=== PATIENT | male | born 1965 | race Caucasian/White ===

== ENCOUNTER 2024-02-06 09:30 | Inpatient (IN) | payer BC, SELFPAY ==
[2024-02-06 09:40] VITALS: BP 123/78
--- NOTE | 2024-02-06 09:51 | PTCARENOTE ---
Received patient as a transfer from [facility] to room 2244. Patient assisted from the stretcher to the bed, + HAMM, lungs are clear but coarse and patient on 2L NC with pulse ox of 95%. Placed on telemetry and remains in controlled AF. IV heparin
was infusing and IV cardizem which is empty, await further orders. Oriented to the room and plan of care, CT surgery PA in with patient now.
[2024-02-06 10:13] VITALS: BMI 32.4
--- NOTE | 2024-02-06 10:14 | HPS.HSE ---
Family Physician
-
Family Physician: NO INTERVIEW UNKNOWN
Chief Complaint
-
shortness of breathe
History of Present Illness
58-year-old male with past medical history of hyperlipidemia, hypertension, GERD, obesity, and former smoker presented to [facility] with acute onset of shortness of breath. He states that he has been progressively short of breath for 2
weeks, however, he noticed that the shortness of breath was worse. On Sunday he noticed that he along with the labored breathing he also became dizzy so he told his to call 911. EMS brought patient to [facility]. While
at [facility] he was found to be in new onset atrial fibrillation with rapid ventricular rate. At that time he was started on a Cardizem and heparin infusion.
While at [facility] he received an echocardiogram which showed an ejection fraction of 20-25% with severe global hypokinesis. On echo it was also found that the patient had moderate to severe mitral valve regurgitation. Patient was
then taken to the cardiac [employer] where a right and left heart cath was performed. Patient showed a mixed venous of 59.4 and a cardiac index of 2.33. LHC revealed moderate distal LM diseal and MVD. Patient was transferred to for CT surgery work
up.
Medical History
Past Medical History
Past Medical History: Reports GERD, HTN, Hypercholesterolemia, NIDDM and Valvular Disease
Past Surgical History: Reports Orthopedic
Social History
Tobacco: Former Smoker
Alcohol: Occasional
Drug: None
Personal:
Living: With Family
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
Family History
Family History: CAD
Allergies / Home Medications
Allergies reflects when Allergies were last updated in [employer].
Home Medications with original date entered in [employer]
Allergy/Medication List:
NKDA
If medication reconciliation has not been performed, why?: Medication List N/A
Review of Systems
-
History Source: Patient
A 12 point ROS was completed and negative except as noted: Yes
Constitutional: Reports Weight Gain
EENT: Reports No Symptoms
Respiratory: Reports Trouble Breathing
Cardiac: Reports Palpitations
Abdomen/GI: Reports Constipated
: Reports No Symptoms
Musculoskeletal: Reports Edema
Skin: Reports No Symptoms
Neurological: Reports No Symptoms
Endocrine: Reports No Symptoms
Hematologic/Lymphatic: Reports No Symptoms
Psych: Reports No Symptoms
Physical Exam
Vital Signs
Vital Signs
Temp Resp Pulse Ox
97.9 F 18 96
02/06/24 10:12 02/06/24 10:12 02/06/24 10:12
Physical Exam
General: Well Developed, Well Nourished, Respiratory Distress and Morbidly Obese
HEENT: NormoCephalic and PERRLA
Respiratory: Rhonchi (Right > left) and Crackles
Cardiac: S1/S2 and Irregular Rhythm
Breast: Deferred by me
GI: Soft, Non Tender and Normal Bowel Sounds
Genito-urinary: Deferred by me
Musculoskeletal: No Cyanosis, Edema, Left Lower Extremity and Edema, Right Lower Extremity
Skin: Warm and Dry
Neuro: AO x 3
Hematologic/Lymphatic: No Lymphadenopathy
Psych: Calm
Data Reviewed
-
Diagnostic Radiology: Image Personally Visualized and interpreted
Impression/Plan
-
IMPRESSION:
58-year-old male with past medical history listed above was found to be in new onset rapid A-fib at [facility]. Patient was subsequently found to have multivessel disease and severe MR and patient was transferred to [facility]
for surgical evaluation.
PLAN:
#CAD
#Moderate to severe MR
#Fluid overload
-Patient's case will be discussed with attending physician. Further details regarding surgical timing intervention will be determined after attending physicians full evaluation
-Routine preoperative cardiothoracic surgery orders will be initiated.
-STS risk stratification score will be calculated after preoperative testing is complete
-Will consult cardiology
-Will send labs now and follow-up EKG
-Will start aspirin 81 mg daily
-Will diurese as blood pressure allows
-Chest x-ray pending
-Will upload echocardiogram and left heart cath to CV synapse
- Will begin gentle diureses and repeat TTE on sunday
#Atrial fibrillation with rapid ventricular rate
-Discontinue Cardizem drip and start metoprolol p.o.
> Will up titrate as needed
-Resume heparin drip
-Was started on Eliquis p.o. at [facility]; will discontinue given patient is here for surgical workup
#GERD
-Continue Protonix
#Obesity
-Eventual consult to nutrition
#Constipation
-Resume bowel regimen
#Hyperlipidemia
-Resume statin
#Prediabetes
-Will start sliding scale insulin while inpatient.
-HgbA1c pending
[2024-02-06 10:19] LABS: % Basophils 0.7 % (0-2); % Eosinophils 0.9 % (0-6); % Immature Granulocytes 0.4 % (0-0.5); % Lymphocytes 13.5 % (20.5-51.1); % Neutrophils 70.5 % (42.2-75.2); Absolute Basophils 0.1 10^3/uL (0-0.2); Absolute Eosinophils 0.1 10^3/uL (0-0.7); Absolute Immature Granulocytes 0.1 10^3/uL (0-0.05); Absolute Lymphocytes 1.7 10^3/uL (1.2-3.4); Absolute Monocytes 1.7 10^3/uL (0.1-0.6); Absolute Neutrophils 8.6 10^3/uL (1.4-6.5); Hematocrit 43.3 % (39.0-52.0); Hemoglobin 14.9 g/dL (13.0-18.0); Mean Corp Hgb Conc. 34.4 g/dL (33.0-37.0); Mean Corpuscular Hgb 28.8 pg (27.0-31.0); Mean Corpuscular Volume 83.6 fL (80.0-94.0); Mean Platelet Volume 9.9 fL (7.4-10.4); Nucleated Red Blood Cells % 0 % (-); Platelet Count 311 10^3/uL (130-400); Red Blood Cell Count 5.18 10^6/uL (4.70-6.10); Red Cell Dist. Width 14.9 % (11.5-14.5); White Blood Cell Count 12.2 10^3/uL (4.8-10.8)
[2024-02-06] MEDS: HEPARIN 25000 UNITS/250 ML IV (11:06)
[2024-02-06] MEDS: LOPRESSOR 12.5 MG PO (11:12)
[2024-02-06 11:31] LABS: Urine Albumin Negative (Neg - Trace); Urine Bilirubin 1+ (Negative); Urine Character Clear (Clear); Urine Color Yellow; Urine Glucose Negative (Negative); Urine Ketone Trace (Negative); Urine Leukocyte Trace (Negative); Urine Nitrite Negative (Negative); Urine Occult Blood Negative (Negative); Urine Urobilinogen 3+ (Neg - 1+)
[2024-02-06 11:37] LABS: APTT 30.3 Sec (23.4-35.0); INR 1.22; PT 15.2 Sec (11.4-14.6)
[2024-02-06 11:43] LABS: ALT (SGPT) 23 U/L (0-50); AST (SGOT) 23 U/L (17-59); Alkaline Phosphatase 129 U/L (38-126); Blood Urea Nitrogen 15 mg/dl (9-20); Calcium 9.8 mg/dl (8.4-10.2); Carbon Dioxide 21 mmol/L (22-30); Chloride 104 mmol/L (98-107); Estimated Creatinine Clearance > 125 ml/min; Glucose 117 mg/dl (70-99); HDL Cholesterol 39 mg/dl; LDL Cholesterol, Calculated 82 mg/dl; Potassium 4.1 mmol/L (3.5-5.1); Sodium 137 mmol/L (135-145); Total Bilirubin 1.8 mg/dl (0.2-1.3); Total Cholesterol 136 mg/dl (50-199); Total Protein 6.8 g/dl (6.3-8.2); Triglyceride 75 mg/dl (10-149); Very Low Density Lipoprotein 15 mg/dl (0-30); eGFR > 60.00
[2024-02-06 12:18] LABS: Urine Red Blood Cell 0-2 /HPF (0-2); Urine Squamous Cell 0-2 /LPF (Few)
[2024-02-06] MEDS: LASIX 50 IV (12:27)
--- NOTE | 2024-02-06 13:02 | PTCARENOTE ---
EKG, labs obtained. Patient started on IV heparin at 1000 units/hr, IV lasix started at 10mg/hr as ordered.
--- NOTE | 2024-02-06 13:08 | CON.CAR ---
Addendum entered and electronically signed by Sree Gonsales MD 02/06/24 16:30:
Patient seen and examined in collaboration with RECOVERY COACH; agree with below.
-58-year-old f male with hypertension, hyperlipidemia, GERD, obesity, prediabetes, and former heavy cigarette use (2 PPD for several decades) transferred from [facility] for CABG evaluation.
-The patient was found to have multivessel CAD at [facility] and an LVEF of 20-25% with moderate to severe mitral regurgitation.
-The patient is currently on a Lasix drip.
-Will transition from metoprolol tartrate to metoprolol succinate for GDMT.
-Further GDMT will transpire throughout hospitalization after CABG; holding certain medications for now in anticipation of CABG.
-Case discussed with CT surgery; will reassess degree of mitral regurgitation on Sunday after aggressive diuresis via a repeat transthoracic echocardiogram.
-gambling monitor; will follow.
Original Note:
Consultation
Consultation Request
Date/Time Consultation Requested: 02/06/2024 10:45
Date/Time Consultation Performed: 02/06/2024 13:00
Requesting Provider: NATHANAEL Wise
Performing Provider: NATHANAEL Buck for Dr. Gonsales
Reason for Consultation: Coronary artery disease
Medical History
-
Chief Complaint: Shortness of breath
History of Present Illness:
This patient is a 58-year-old male with a past medical history of hypertension, dyslipidemia, GERD, obesity, and former smoker who originally presented to [facility] with shortness of breath. His feeling of unwellness started 5 days
prior to ER visit. He endorsed palpitations and the sensation of elevated heart rate. He felt to have near syncope and presented to the emergency department. He was found to have atrial fibrillation with rapid ventricular response. He was started
on a diltiazem drip and heparin. Transthoracic echocardiogram revealed an LVEF of 20-25%. He was also found to have moderate to severe mitral regurgitation. A LYSSA guided DCCV was planned but anesthesia felt uncomfortable performing the test
without ischemic evaluation. He then had a Myoview stress test which was abnormal. The following day he had a left and right heart catheterization which demonstrated multivessel coronary artery disease. He was transferred to this facility for
CABG evaluation with possible MVR.
Past Medical History
Past Medical History: GERD, HTN and Hypercholesterolemia
Social History
Tobacco: Former Smoker
Alcohol: Occasional
Drug: None
Personal:
Living: With Family
Employment: Employed
Allergies / Home Medications
Allergy/AdvReac Type Severity Reaction Status Date / Time
No Known Allergies Allergy Unverified 02/06/24 10:36
�Medication �Instructions �Recorded �Confirmed �Type
atorvastatin 20 mg tablet (Lipitor) 20 mg PO DAILY 02/06/24 02/06/24 History
omeprazole magnesium 20 mg 20 mg PO DAILY 02/06/24 02/06/24 History
tablet,delayed release (Prilosec
OTC)
Review of Systems
-
History Source: Patient
All other systems: Negative unless noted
Constitutional: Fatigue
Respiratory: Trouble Breathing
Cardiac: No Symptoms
Musculoskeletal: Edema
Physical Exam
Vital Signs
Temp Pulse Resp BP Pulse Ox
97.9 F 81 18 123/78 96
02/06/24 10:12 02/06/24 11:15 02/06/24 10:12 02/06/24 09:40 02/06/24 10:12
Lab Results
02/06/24 10:36
Physical Exam
General: Well Developed, Well Nourished and No Apparent Distress
HEENT: Normocephalic, Anicteric and Moist Mucous Membranes
Respiratory: Crackles
Cardiac: S1/S2, Regular Rhythm and Murmur (II/)
Breast: Deferred by me
GI: Soft, Non Tender, Non Distended and Normal Bowel Sounds
Rectal: Deferred by Provider
Genito-urinary: No Costovertebral Tender
Musculoskeletal: No Clubbing and No Cyanosis
Skin: Warm and Dry
Neuro: AO x 3
Hematologic/Lymphatic: No Lymphadenopathy
Psych: Calm
Impression / Plan
-
Background: 58M presented to [facility] with SOB. Found to be in AF with RVR. LVEF 20-25%. LHC with MVCAD. TTE with moderate�severe MR.
NSTEMI
Coronary artery disease
-LVEF 20-25%, the following day he had an abnormal stress test, the day after he then had LHC with findings as below
-Pre-operative studies are underway, for review by surgeon
-Troponin 1 peaked at 27 at [facility]
-Continue ASA 81 mg daily
HFrEF, ICM (EF 20-25%) - acute on chronic
-Diuresis with furosemide gtt at 10mg/hour
-proBNP 596 02/02/2024
-GDMT as tolerated
-Beta-ish: Metoprolol tartrate, transition to metoprolol succinate
-ACEi/ARB: Hold in the setting of CABG evaluation
-MRA: Hold in the setting of CABG evaluation
-SGLT2: Case management to wilkes
-ICD: Reevaluate LVEF 3 months after maximally tolerated GDMT
-Trend daily weight, I/O, and BMP with diuresis
Atrial fibrillation with rapid ventricular response
-Initially on diltiazem drip, less than ideal given decline in LVEF, transition to beta-ish
-Oral Anticoagulation: Heparin drip, eventually apixaban 5 mg twice daily post-operatively
-[id number]: Score at least 3 (Heart failure, HTN, Vascular disease)
Moderate to severe mitral regurgitation
-Continue diuresis, can reevaluate after he is closer to euvolemia (LYSSA versus TTE)
Dyslipidemia
-LDL 82, increase atorvastatin to 40 mg daily
Prediabetes, HgbA1c 6.0%, consider SGLT2
Obesity, BMI 32, he would benefit from weight loss
Former smoker, 2 PPD x 30 years, quit in 2021, continued cessation recommended
Data:
Transthoracic echocardiogram 02/03/2024:
LVEF 20-25%. Severe global hypokinesis. Moderate to severe mitral valve regurgitation. Mitral valve leaflets are tethered. Mildly elevated PASP, 31 mmHg.
Cardiac catheterization, 02/05/2024:
Severe multivessel coronary artery disease with left main involvement. Moderate to severely depressed LVEF with at least moderate mitral regurgitation. Mild to moderately elevated left and right pressures with no evidence of aortic stenosis. CI
2.33.
Data Reviewed
-
EKG: Report Reviewed by me (Atrial fibrillation, inferior infarct, anterior infarct, rate 94)
Labs: Labs Reviewed by me
Old Records: Reviewed
--- NOTE | 2024-02-06 13:29 | CM ---
Chart reviewed. Patient is independent of ADLS, lives with his in a 3 STH, 1 RORO, 0 DME. Patient is going for CABG/MVR on 02/10. Plan is for the patient to return home with CT Transitional RN. CM to follow
--- NOTE | 2024-02-06 14:27 | CM ---
Pricing on medications through the patients [facility], ID# [id number]
Farxiga 10 mg $10 for a 30 day, $20 for a 90 day
Jardiance 10mg $10 for 30 day, $20 for 90 day
Entresto 24-26mg $10 for 30 day, $20 for 90 day
Eliquis 5 mg $10 for 30 day, $20 for 90 day.
[2024-02-06 15:46] VITALS: BP 137/58
[2024-02-06 16:37] LABS: NT-proBNP 1390 pg/ml
[2024-02-06] MEDS: LIPITOR 40 MG PO (18:09)
[2024-02-06 18:28] LABS: APTT 32.4 Sec (23.4-35.0)
[2024-02-06 18:29] LABS: Blood Urea Nitrogen 20 mg/dl (9-20); Carbon Dioxide 29 mmol/L (22-30); Chloride 98 mmol/L (98-107); Estimated Creatinine Clearance 109 ml/min; Glucose 93 mg/dl (70-99); Potassium 4.5 mmol/L (3.5-5.1); Sodium 138 mmol/L (135-145); eGFR > 60.00
[2024-02-06 19:04] VITALS: BP 134/121
[2024-02-06 19:06] VITALS: BP 134/102
[2024-02-06 19:11] VITALS: BP 124/104
[2024-02-06] MEDS: TOPROL XL 25 MG PO (19:45)
[2024-02-06] MEDS: COLACE 100 MG PO (19:45)
[2024-02-06 22:56] VITALS: BP 124/95
[2024-02-07] VITALS (7 sets, daily range): BP systolic 102–129; BP diastolic 40–91; BMI 31.1
--- NOTE | 2024-02-07 00:09 | PTCARENOTE ---
Addendum entered by Abigail Cali RN 02/07/24 02:46:
Correction - pt. is in Afib rate 80's-low 100's on the monitor.
Original Note:
No complaints of CP/discomfort so far this shift, VSS, NSR on the monitor. Lasix drip infusing until 2100 as ordered then dc'd, pt. voiding large amounts of clear yellow urine without difficulty. Pt. HAMM with ambulation and at rest at times, 2L O2
on with pulse ox mid to high 90's. Lungs CTA. Right radial and brachial cath dressing CDI, no hematoma, circulation intact. Pt. currently sleeping.
[2024-02-07 01:07] LABS: Hematocrit 45.1 % (39.0-52.0); Hemoglobin 15.7 g/dL (13.0-18.0); Mean Corp Hgb Conc. 34.8 g/dL (33.0-37.0); Mean Corpuscular Hgb 28.5 pg (27.0-31.0); Mean Platelet Volume 9.5 fL (7.4-10.4); Platelet Count 332 10^3/uL (130-400); Red Cell Dist. Width 14.8 % (11.5-14.5); White Blood Cell Count 12.9 10^3/uL (4.8-10.8)
[2024-02-07 01:20] LABS: APTT 42.8 Sec (23.4-35.0)
[2024-02-07 02:06] LABS: Blood Urea Nitrogen 20 mg/dl (9-20); Calcium 9.9 mg/dl (8.4-10.2); Carbon Dioxide 21 mmol/L (22-30); Chloride 102 mmol/L (98-107); Estimated Creatinine Clearance > 125 ml/min; Glucose 104 mg/dl (70-99); Sodium 137 mmol/L (135-145); eGFR > 60.00
[2024-02-07 02:22] LABS: Potassium 3.9 mmol/L (3.5-5.1)
[2024-02-07] MEDS: KCL 40 MEQ PO (06:10)
[2024-02-07] MEDS: TOPROL XL 25 MG PO (06:10)
[2024-02-07] MEDS: LASIX 50 IV (06:11)
[2024-02-07] MEDS: HEPARIN 25000 UNITS/250 ML IV ×2 (06:12→22:00)
[2024-02-07] MEDS: PROTONIX 40 MG PO (08:05)
[2024-02-07] MEDS: LOW STRENGTH ASPIRIN 81 MG PO (08:05)
[2024-02-07] MEDS: COLACE 100 MG PO ×2 (08:05→19:19)
--- NOTE | 2024-02-07 08:21 | W.PN.CD ---
Today's Communication / Plan
-
continue ASA, heparin drip
titrate metoprolol
Impression / Plan
-
Background: 58M presented to [facility] with SOB. Found to be in AF with RVR. LVEF 20-25%. [facility] with MVCAD. TTE with moderate�severe MR.
NSTEMI
Coronary artery disease: with plans for inpatient CABG
-LVEF 20-25%, the following day he had an abnormal stress test, the day after he then had C with findings as below
-Continue ASA 81 mg daily, heparin drip (with monitoring of tele and Hgb)
Moderate to severe mitral regurgitation
-Continue diuresis, then repeat TTE tomorrow
-? MV repair
HFrEF, ICM (EF 20-25%) - acute on chronic
-Diuresis with furosemide gtt at 10mg/hour
-GDMT as tolerated
-Beta-ish: metoprolol succinate
-ACEi/ARB: Hold in the setting of CABG evaluation
-MRA: Hold in the setting of CABG evaluation
-SGLT2: Case management to wilkes
-ICD: Reevaluate LVEF 3 months after maximally tolerated GDMT
-Trend daily weight, I/O, tele, and BMP with diuresis
Atrial fibrillation with rapid ventricular response
-Initially on diltiazem drip, less than ideal given decline in LVEF, transitioned to beta-ish, and titrate
-rates mildly elevated
-Oral Anticoagulation: Heparin drip now; eventually apixaban 5 mg twice daily post-operatively
-[id number]: Score at least 3 (Heart failure, HTN, Vascular disease)
Dyslipidemia
-LDL 82, increase atorvastatin to 40 mg daily
Prediabetes, HgbA1c 6.0%, consider SGLT2
Obesity, BMI 32, he would benefit from weight loss
Former smoker, 2 PPD x 30 years, quit in 2021, continued cessation recommended
Data:
Transthoracic echocardiogram 02/03/2024:
LVEF 20-25%. Severe global hypokinesis. Moderate to severe mitral valve regurgitation. Mitral valve leaflets are tethered. Mildly elevated PASP, 31 mmHg.
Cardiac catheterization, 02/05/2024:
Severe multivessel coronary artery disease with left main involvement. Moderate to severely depressed LVEF with at least moderate mitral regurgitation. Mild to moderately elevated left and right pressures with no evidence of aortic stenosis. CI
2.33.
Physical Exam
Vital Signs/Labs
Vital Signs
Temp Pulse Resp BP Pulse Ox
98.6 F 120 20 103/40 95
02/07/24 01:05 02/07/24 07:12 02/07/24 01:05 02/07/24 07:12 02/07/24 01:05
02/06/24 02/07/24 02/08/24
06:59 06:59 06:59
Actual Weight 101.2 kg
02/07/24 01:01
02/07/24 01:01
PT 15.2 Sec (11.4-14.6) H 02/06/24 10:10
INR 1.22 02/06/24 10:10
APTT 42.8 Sec (23.4-35.0) H 02/07/24 01:01
Magnesium 2.0 mg/dl (1.6-2.3) 02/07/24 01:01
Triglycerides 75 mg/dl (10-149) 02/06/24 10:10
LDL Cholesterol, Calc 82 mg/dl 02/06/24 10:10
VLDL Cholesterol, Calc 15 mg/dl (0-30) 02/06/24 10:10
HDL Cholesterol 39 mg/dl 02/06/24 10:10
02/06/24
10:10
Ude-X-Rokaclikbss Pept 1390
Physical Exam
Constitutional: No acute distress
EENT: Moist mucous membranes
Cardiovascular: Rhythm/rate is irregular, Pedal edema present, JVD present and Systolic murmur present
Respiratory: Respiratory effort normal and Lungs clear to auscul.
GI: Soft, Distention absent and Flat
Neuro/Psych: AO x 3
Data Reviewed
-
Date of Service: February 07, 2024
EKG: Other (Tele: A fib 100-110)
Labs: Labs Reviewed by me
[2024-02-07 09:40] LABS: APTT 50.5 Sec (23.4-35.0)
--- NOTE | 2024-02-07 11:39 | CM ---
Chart reviewed. 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 Patient is going for a CABG on 02/10. Preoperative teaching done with instructions and restrictions.
Gave patient the Cardiac Surgery Book. Also reviewed showering instructions. Patient is agreeable to a home visit by CT Transitional RN. Plan is for the patient to return home with CT Transitional RN. CM to follow
[2024-02-07 15:52] LABS: Hepatitis C Antibody Negative (Negative)
[2024-02-07 16:32] LABS: APTT 59.2 Sec (23.4-35.0)
[2024-02-07] MEDS: LIPITOR 40 MG PO (17:49)
--- NOTE | 2024-02-07 18:53 | PTCARENOTE ---
Pt OOB to chair for most of the day, he denies any discomfort. Telemetry shows uncontrolled atrial fib with resting rate @110-120 up to 150 with activity. Pt asymptomatic, SBP @106. Dr. Pyle notified of elevated heart rates, will continue to monitor.
[2024-02-07] MEDS: TOPROL XL 50 MG PO (19:21)
--- NOTE | 2024-02-07 21:19 | W.PN.CT ---
Addendum entered and electronically signed by Mando Luz PA-C 02/07/24 21:19:
correction:
- tentative schedule for MVR, CABG, MAZE, STEVIE clip with Dr Matias on Saturday 02/10
Original Note:
Today's Communication / Plan
-
CUS: <50% B/L ICA stenosis
CTA C/A/P: mild-mod emphysema
- pulmonary function testing pending
Assessment / Plan
-
58-year-old male with past medical history listed above was found to be in new onset rapid A-fib at [facility]. Patient was subsequently found to have multivessel disease and severe MR and patient was transferred to [facility]
for surgical evaluation.
PLAN:
#CAD
#Moderate to severe MR
#Fluid overload
# HFrEF (20-25%)
- tentative schedule for MVR, CABG, MAZE, STEVIE clip with Dr Hyman on 02/10
- STS risk stratification score will be calculated after preoperative testing is complete
- continue ASA, Lipitor, Toprol
- echocardiogram and left heart cath to CV synapse
- weight down 1056.3>101.2kg after aggressive diuresis with Lasix infusion 02/05 & 02/06
- repeat TTE on 02/07
#Atrial fibrillation with rapid ventricular rate
- Toprol XL 50mg BID
- anticoagulation with IV heparin @ 1600u/h
- Was started on Eliquis p.o. at [facility]>discontinued per pre-op protocol
#GERD
- Continue Protonix
#Obesity (BMI 31.1)
- Eventual consult to nutrition
#Constipation
- Resume bowel regimen
#Hyperlipidemia
- continue Lipitor
#Prediabetes (A1C 6.0)
-Will start sliding scale insulin while inpatient
Subjective
-
Date of Service: February 07, 2024
Objective Data
-
Lab Results
02/07/24 01:01
02/07/24 01:01
PT 15.2 Sec (11.4-14.6) H 02/06/24 10:10
INR 1.22 02/06/24 10:10
APTT 50.5 Sec (23.4-35.0) H 02/07/24 09:23
Vital Signs
Vital Signs
Temp Pulse Resp BP Pulse Ox
97.8 F 120 20 102/82 96
02/07/24 15:31 02/07/24 12:16 02/07/24 15:31 02/07/24 12:16 02/07/24 15:31
CT Intake/Output/Weight
02/06/24 02/07/24 02/07/24
18:59 06:59 18:59
Intake Total 76 / 316 240 / 316 300 / 300
Output Total 2024 / 4575 2550 / 4575 2099 / 2099
Balance -1949 / -4259 -2310 / -4259 -1800 / -1800
SaO2: 96
Physical Exam
-
General: AOx3
Cardiovascular: Irregular rate & rhythm
Respiratory: Clear
Data Reviewed
-
Lab Results: Results Reviewed
Medications: Active Meds Reviewed
Chest X-Ray: Report Reviewed and Image Reviewed
ECG: Report Reviewed and Image Reviewed
[2024-02-07 23:58] LABS: APTT 70.5 Sec (23.4-35.0)
[2024-02-08] VITALS (7 sets, daily range): BP systolic 107–136; BP diastolic 69–93; BMI 30.8
--- NOTE | 2024-02-08 01:21 | PTCARENOTE ---
Pt. tired tonight, has been sleeping since ~2200; Afib on the monitor, rate 80's-low 100's with sleep. Voiding leora urine without difficulty when awake. Heparin gtt infusing per order.
--- NOTE | 2024-02-08 03:21 | W.PN.CT ---
Today's Communication / Plan
-
-diuresed over 7L in the past 48 hrs (on Lasix drip 02/05 and 02/06)
-ordered Lasix drip on 02/07
-follow lytes, Cr
-renewed iv Heparin for a-fib
-Echo and PFT today
-tentative schedule for MVR, CABG, MAZE, STEVIE clip with Dr Matias on Saturday 02/10 (consent on chart)
Assessment / Plan
-
- New onset a-fib with RVR
- Mod-severe MR
- New onset systolic CHF
- CAD
- ICM, EF 20-25%
- HLD
- Class 1 obesity (BMI 31)
- GERD
- Pre-diabetes (HgA1c 6.0)
- Tobacco use
CUS: <50% B/L ICA stenosis
CTA C/A/P: mild-mod emphysema
Panelipse without significant findings
Discussed patient care with: Nursing and Care Team
Subjective
-
Date of Service: February 08, 2024
Objective Data
-
PT 15.2 Sec (11.4-14.6) H 02/06/24 10:10
INR 1.22 02/06/24 10:10
APTT 70.5 Sec (23.4-35.0) H 02/07/24 23:19
Vital Signs
Vital Signs
Temp Pulse Resp BP Pulse Ox
98.6 F 113 20 106/90 98
02/07/24 23:35 02/07/24 23:34 02/07/24 23:35 02/07/24 23:34 02/07/24 23:35
CT Intake/Output/Weight
02/07/24 02/07/24 02/08/24
06:59 18:59 06:59
Intake Total 240 / 316 300 / 300
Output Total 2550 / 4575 2100 / 2650 550 / 2650
Balance -2310 / -4259 -1800 / -2350 -550 / -2350
SaO2: 98
Physical Exam
-
General: Awake and AOx3
Cardiovascular: Regular rate & rhythm, Murmur and No Rub
Respiratory: Clear
Extremities: Other (trace edema b/l)
Data Reviewed
-
Lab Results: Results Reviewed
Medications: Active Meds Reviewed
Chest X-Ray: Report Reviewed and Image Reviewed
ECG: Report Reviewed and Image Reviewed
[2024-02-08 05:45] LABS: Hematocrit 48.7 % (39.0-52.0); Hemoglobin 16.7 g/dL (13.0-18.0); Mean Corp Hgb Conc. 34.3 g/dL (33.0-37.0); Mean Corpuscular Hgb 28.2 pg (27.0-31.0); Mean Corpuscular Volume 82.1 fL (80.0-94.0); Mean Platelet Volume 9.7 fL (7.4-10.4); Platelet Count 395 10^3/uL (130-400); Red Blood Cell Count 5.93 10^6/uL (4.70-6.10); Red Cell Dist. Width 14.6 % (11.5-14.5); White Blood Cell Count 13.2 10^3/uL (4.8-10.8)
[2024-02-08 05:57] LABS: APTT 89.5 Sec (23.4-35.0)
[2024-02-08] MEDS: SENOKOT-S 1 TABLET PO (05:58)
[2024-02-08] MEDS: LASIX 50 IV (06:00)
[2024-02-08 06:03] LABS: Blood Urea Nitrogen 24 mg/dl (9-20); Calcium 9.9 mg/dl (8.4-10.2); Carbon Dioxide 24 mmol/L (22-30); Chloride 101 mmol/L (98-107); Estimated Creatinine Clearance 120 ml/min; Glucose 109 mg/dl (70-99); Potassium 3.8 mmol/L (3.5-5.1); Sodium 136 mmol/L (135-145); eGFR > 60.00
[2024-02-08] MEDS: TYLENOL 650 MG PO (06:03)
--- NOTE | 2024-02-08 08:42 | W.PN.CD ---
Today's Communication / Plan
-
cont asa and heparin
increased metoprolol
Impression / Plan
-
Background: 58M presented to [facility] with SOB. Found to be in AF with RVR. LVEF 20-25%. [facility] with MVCAD. TTE with moderate�severe MR.
NSTEMI
Coronary artery disease: with plans for inpatient CABG
-LVEF 20-25%, the following day he had an abnormal stress test, the day after he then had LHC with findings as below
-Continue ASA 81 mg daily, heparin drip (with monitoring of tele and Hgb)
Moderate to severe mitral regurgitation
-Continue diuresis, then repeat TTE tomorrow
-? MV repair
HFrEF, ICM (EF 20-25%) - acute on chronic
-Diuresis with furosemide gtt at 10mg/hour
-GDMT as tolerated
-Beta-ish: metoprolol succinate
-ACEi/ARB: Hold in the setting of CABG evaluation
-MRA: Hold in the setting of CABG evaluation
-SGLT2: Case management to wilkes
-ICD: Reevaluate LVEF 3 months after maximally tolerated GDMT
-Trend daily weight, I/O, tele, and BMP with diuresis
Atrial fibrillation with rapid ventricular response
-Initially on diltiazem drip, less than ideal given decline in LVEF, metop increased to 75 mg bid
-rates remain elevated, if continued RVR consider digoxin
-Oral Anticoagulation: Heparin drip now; eventually apixaban 5 mg twice daily post-operatively
-[id number]: Score at least 3 (Heart failure, HTN, Vascular disease)
Dyslipidemia
-LDL 82, increase atorvastatin to 40 mg daily
Prediabetes, HgbA1c 6.0%, consider SGLT2
Obesity, BMI 32, he would benefit from weight loss
Former smoker, 2 PPD x 30 years, quit in 2021, continued cessation recommended
Data:
Transthoracic echocardiogram 02/03/2024:
LVEF 20-25%. Severe global hypokinesis. Moderate to severe mitral valve regurgitation. Mitral valve leaflets are tethered. Mildly elevated PASP, 31 mmHg.
Cardiac catheterization, 02/05/2024:
Severe multivessel coronary artery disease with left main involvement. Moderate to severely depressed LVEF with at least moderate mitral regurgitation. Mild to moderately elevated left and right pressures with no evidence of aortic stenosis. CI
2.33.
Physical Exam
Vital Signs/Labs
Vital Signs
Temp Pulse Resp BP Pulse Ox
97.4 F 113 20 121/88 96
02/08/24 07:44 02/08/24 04:00 02/08/24 07:44 02/08/24 03:42 02/08/24 07:44
02/07/24 02/08/24 02/09/24
06:59 06:59 06:59
Actual Weight 223 lb 1.725 oz 220 lb 14.451 oz
02/08/24 05:21
02/08/24 05:21
PT 15.2 Sec (11.4-14.6) H 02/06/24 10:10
INR 1.22 02/06/24 10:10
APTT 89.5 Sec (23.4-35.0) H 02/08/24 05:21
Magnesium 2.0 mg/dl (1.6-2.3) 02/08/24 05:21
Triglycerides 75 mg/dl (10-149) 02/06/24 10:10
LDL Cholesterol, Calc 82 mg/dl 02/06/24 10:10
VLDL Cholesterol, Calc 15 mg/dl (0-30) 02/06/24 10:10
HDL Cholesterol 39 mg/dl 02/06/24 10:10
02/06/24
10:10
[id number]-A-[id number] Pept 1390
Physical Exam
Constitutional: No acute distress and Comfortable
Cardiovascular: Rhythm/rate is irregular and Pedal edema present (trace)
Respiratory: Respiratory effort normal and Lungs clear to auscul.
GI: Soft
Neuro/Psych: AO x 3
Data Reviewed
-
Date of Service: February 08, 2024
EKG: Tracing Personally Visualized and interpreted (af rvr)
Echo: Report Reviewed by me
Labs: Labs Reviewed by me
[2024-02-08] MEDS: KCL 40 MEQ PO ×2 (08:59→22:55)
[2024-02-08] MEDS: COLACE 100 MG PO ×2 (08:59→20:26)
[2024-02-08] MEDS: PROTONIX 40 MG PO (09:00)
[2024-02-08] MEDS: LOW STRENGTH ASPIRIN 81 MG PO (09:00)
[2024-02-08] MEDS: TOPROL XL 75 MG PO ×2 (09:11→20:26)
[2024-02-08] MEDS: MIRALAX 17 GRAMS PO (09:11)
[2024-02-08] MEDS: TOPROL XL PO (09:14)
[2024-02-08] MEDS: HEPARIN 25000 UNITS/250 ML IV ×2 (10:56→22:56)
--- NOTE | 2024-02-08 11:33 | CM ---
Chart reviewed. Patient is independent of ADLS, lives with his in a [address], 1 [address]ORO, 0 DME. 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 Patient is going for a MVR/CABG on 02/10. Plan is for the patient to return home with CT
Transitional RN. CM to follow
[2024-02-08 12:07] LABS: APTT 86.9 Sec (23.4-35.0)
[2024-02-08] MEDS: LANOXIN 500 MCG IV (16:45)
[2024-02-08] MEDS: LIPITOR 40 MG PO (18:27)
--- NOTE | 2024-02-08 19:54 | PTCARENOTE ---
Pt continues to diurese with lasix infusion. Telemetry shows continued atrial fib at a rate [id number] with activity. Toprol dose increased to 75mg, digoxin given. Plan for ECHO this weekend if pt's heart rate is <100.
[2024-02-08] MEDS: LANOXIN 250 MCG IV (22:54)
--- NOTE | 2024-02-08 23:15 | PTCARENOTE ---
Received pt at handoff. AOx4 and pleasant. Assessment noted as documented. Tele- Afib. HR 100s. Heparin gtt infusing at 1900 units/hr. Furosemide gtt d/c as ordered at 1900. Pt has no c/o at this time. Currently in bed; call davida w/in reach.
[2024-02-09 04:55] VITALS: BP 116/80
[2024-02-09] MEDS: LANOXIN 250 MCG IV (04:55)
[2024-02-09 05:04] VITALS: BMI 30.8
[2024-02-09 05:41] LABS: APTT 81.7 Sec (23.4-35.0)
[2024-02-09] MEDS: TYLENOL 650 MG PO (05:46)
[2024-02-09 06:05] LABS: Blood Urea Nitrogen 32 mg/dl (9-20); Calcium 10.6 mg/dl (8.4-10.2); Carbon Dioxide 19 mmol/L (22-30); Chloride 103 mmol/L (98-107); Estimated Creatinine Clearance 107 ml/min; Glucose 115 mg/dl (70-99); Magnesium 2.2 mg/dl (1.6-2.3); Potassium 5.1 mmol/L (3.5-5.1); Sodium 138 mmol/L (135-145); eGFR > 60.00
--- NOTE | 2024-02-09 06:49 | W.PN.CT ---
Addendum entered and electronically signed by Jori Hyman MD 02/09/24 09:32:
I saw and examined the patient.
The PA's note was reviewed and I agree with the note.
Comment:
Preop for CABG/+/- MVR, MAZE, ELAA on Sunday w/ Dr. Matias
CATH: Severe multivessel coronary artery disease with left main involvement. Moderate to severely depressed LVEF with at least moderate mitral regurgitation. Mild to moderately elevated left and right pressures with no evidence of aortic stenosis.
CI 2.33. Performed at [facility].
ECHO: LVEF 20-25%. Severe global hypokinesis. Moderate to severe mitral valve regurgitation. Mitral valve leaflets are tethered. Mildly elevated PASP, 31 mmHg.
DENTAL: Panelipse: no acute dz
CAROTIDS: <50% B/L, antegrade vert B/L
CT-CAP: COPD, interstitial edema, mild-to-mod AV Ca - ascending aorta OK
PFTs: FVC 3.14 (65%), FEV1 2.5 (67%)
LABS: 13.2>16.7 (48.7)<395; 32/0.9
- Check ABG
- Continue medical optimization/ diuresis/ AF mgmt
- Repeat echocardiogram on Sunday
- Calculate STS risk stratification
- Elevated risk surgical intervention tentatively for Sunday
Original Note:
Today's Communication / Plan
-
-No major issues overnight
-Lasix gtt discontinued yesterday 02/08/24 @ 1900. 24hrs u/o 2700
-On heparin gtt for a-fib
-Ongoing preop workup/optimization
-For CABG, +/- MAZE, STEVIE clip with Dr Matias on Saturday 02/10 (consent on chart)
Assessment / Plan
-
- New onset a-fib with RVR
- Mod-severe MR
- New onset systolic CHF
- CAD
- ICM, EF 20-25%
- HLD
- Class 1 obesity (BMI 31)
- GERD
- Pre-diabetes (HgA1c 6.0)
- Tobacco use
CUS: <50% B/L ICA stenosis
CTA C/A/P: mild-mod emphysema
Panelipse without significant findings
Discussed patient care with: Cardiology, Nursing, Respiratory Therapy, Pharmacy and Care Team
Subjective
-
Date of Service: February 09, 2024
No issues overnight. Denies CP/SOB
Objective Data
-
Lab Results
02/08/24 05:21
02/09/24 05:15
PT 15.2 Sec (11.4-14.6) H 02/06/24 10:10
INR 1.22 02/06/24 10:10
APTT 81.7 Sec (23.4-35.0) H 02/09/24 05:15
Vital Signs
Vital Signs
Temp Pulse Resp BP Pulse Ox
98.1 F 102 16 116/80 98
02/09/24 04:54 02/09/24 05:00 02/09/24 04:54 02/09/24 04:55 02/09/24 04:55
CT Intake/Output/Weight
02/08/24 02/08/24 02/09/24
06:59 18:59 06:59
Intake Total 828 / 978 150 / 978
Output Total 1350 / 3450 1250 / 2700 1450 / 2700
Balance -1350 / -3150 -422 / -1722 -1300 / -1722
SaO2: 98 (RA)
Physical Exam
-
General: Awake, Oriented and AOx3
Cardiovascular: Regular rate & rhythm, Murmur, No Rub and No Gallop
Respiratory: Decreased Breath Sounds
Extremities: Other (+trace edema)
Data Reviewed
-
Lab Results: Results Reviewed
Medications: Active Meds Reviewed
Chest X-Ray: Report Reviewed and Image Reviewed
ECG: Report Reviewed and Image Reviewed
[2024-02-09 07:30] VITALS: BP 117/80
[2024-02-09] MEDS: PROTONIX 40 MG PO (09:02)
[2024-02-09] MEDS: TOPROL XL 75 MG PO (09:02)
[2024-02-09] MEDS: LOW STRENGTH ASPIRIN 81 MG PO (09:02)
[2024-02-09] MEDS: LASIX 50 IV (09:02)
[2024-02-09] MEDS: COLACE 100 MG PO (09:02)
--- NOTE | 2024-02-09 09:31 | PTCARENOTE ---
pt is afib on the monitor, hr in the low 100s, vss. pt offers no complaints this morning. heparin gtt running per protocol, see documentation. lasix gtt hung per order. pt educated on plan of care for the day and pt verbalized understanding. call
higuera within reach.
[2024-02-09 10:00] LABS: B.E. 1.4 mmol/L; HCO3 23.4 mmol/L (21-28); O2 Saturation % 96.1 % (94-98); PCO2 30 mmHg (35-48); PO2 72 mmHg (83-108)
[2024-02-09] MEDS: HEPARIN 25000 UNITS/250 ML IV (11:47)
[2024-02-09] MEDS: LANOXIN 250 MCG PO (11:49)
[2024-02-09 12:57] VITALS: BP 108/78
--- NOTE | 2024-02-09 15:00 | W.PN.CD ---
Today's Communication / Plan
-
-CABG planned for Sunday.
-Volume status improved with Lasix drip; now discontinued.
-Echocardiogram tomorrow to reassess mitral valve.
-Digoxin added yesterday; continue current dose of Toprol-XL.
Impression / Plan
-
Background: 58M presented to [facility] with SOB. Found to be in AF with RVR. LVEF 20-25%. LHC with MVCAD. TTE with moderate�severe MR.
NSTEMI
Coronary artery disease: with plans for inpatient CABG
-LVEF 20-25%, the following day he had an abnormal stress test, the day after he then had LHC with findings as below
-Continue ASA 81 mg daily, heparin drip (with monitoring of tele and Hgb)
-CABG planned for Sunday.
Moderate to severe mitral regurgitation
-Volume status improved with Lasix drip; now discontinued.
-Echocardiogram tomorrow to reassess mitral valve.
HFrEF, ICM (EF 20-25%) - acute on chronic
-Volume status improved with Lasix drip; now discontinued.
-GDMT as tolerated
-Beta-ish: metoprolol succinate
-ACEi/ARB: Hold in the setting of CABG evaluation
-MRA: Hold in the setting of CABG evaluation
-SGLT2: Case management to [facility]
-ICD: Reevaluate LVEF 3 months after maximally tolerated GDMT
-Trend daily weight, I/O, tele, and BMP with diuresis
Atrial fibrillation with rapid ventricular response
-Heart rates remain mildly elevated.
-Digoxin added yesterday; continue current dose of Toprol-XL.
-Oral Anticoagulation: Heparin drip now; eventually apixaban 5 mg twice daily post-operatively
-[id number]: Score at least 3 (Heart failure, HTN, Vascular disease)
Dyslipidemia
-LDL 82, increase atorvastatin to 40 mg daily
Prediabetes, HgbA1c 6.0%, consider SGLT2
Obesity, BMI 32, he would benefit from weight loss
Former smoker, 2 PPD x 30 years, quit in 2021, continued cessation recommended
Data:
Transthoracic echocardiogram 02/03/2024:
LVEF 20-25%. Severe global hypokinesis. Moderate to severe mitral valve regurgitation. Mitral valve leaflets are tethered. Mildly elevated PASP, 31 mmHg.
Cardiac catheterization, 02/05/2024:
Severe multivessel coronary artery disease with left main involvement. Moderate to severely depressed LVEF with at least moderate mitral regurgitation. Mild to moderately elevated left and right pressures with no evidence of aortic stenosis. CI
2.33.
Physical Exam
Vital Signs/Labs
Vital Signs
Temp Pulse Resp BP Pulse Ox
97.6 F 115 18 108/78 97
02/09/24 11:25 02/09/24 14:00 02/09/24 11:25 02/09/24 12:57 02/09/24 11:25
02/08/24 02/09/24 02/10/24
06:59 06:59 06:59
Actual Weight 100.2 kg 100.1 kg
02/08/24 05:21
02/09/24 05:15
PT 15.2 Sec (11.4-14.6) H 02/06/24 10:10
INR 1.22 02/06/24 10:10
APTT 81.7 Sec (23.4-35.0) H 02/09/24 05:15
Magnesium 2.2 mg/dl (1.6-2.3) 02/09/24 05:15
Triglycerides 75 mg/dl (10-149) 02/06/24 10:10
LDL Cholesterol, Calc 82 mg/dl 02/06/24 10:10
VLDL Cholesterol, Calc 15 mg/dl (0-30) 02/06/24 10:10
HDL Cholesterol 39 mg/dl 02/06/24 10:10
02/06/24
10:10
Buu-[id number]-Aidcahjnxtk Pept 1390
Physical Exam
Constitutional: No acute distress and Comfortable
EENT: Anicteric
Cardiovascular: Pedal edema is absent, Systolic murmur absent, Rhythm/rate is irregular and S1S2 is normal
Respiratory: Respiratory effort normal and Lungs clear to auscul.
GI: Soft
Neuro/Psych: AO x 3
Other: Skin (Warm, dry, intact)
Data Reviewed
-
Date of Service: February 09, 2024
EKG: Tracing Personally Visualized and interpreted (Telemetry: Atrial fibrillation)
Labs: Labs Reviewed by me
[2024-02-09 15:22] VITALS: BP 112/86
--- NOTE | 2024-02-09 15:23 | W.PN.UPDATE ---
Update Note
Progress Note Update
Procedure Type:�Isolated CABG
PERIOPERATIVE OUTCOME ESTIMATE %
Operative Mortality 5.43%
Morbidity & Mortality 20.3%
Stroke 1.77%
Renal Failure 2.34%
Reoperation 5.56%
Prolonged Ventilation 13.4%
Deep Sternal Wound Infection 0.288%
Long Hospital Stay (>14 days) 10.5%
Short Hospital Stay (<6 days)* 19.9%
Clinical Summary
Planned Surgery: Isolated CABG, Urgent, First cardiovascular surgery
Demographics: 58 year old, White, male, 101.2kg, 180cm, BMI: 31.2 kg/m�
Lab Values: Creatinine: 0.9 mg/dL, Hematocrit: 48.7%, WBC Count: 13.2 10�/�L, Platelet Count: 413919 cells/�L
Substance Abuse: Former smoker, Alcohol use: 2-7 drinks/week
Risk Factors / Comorbidities: Hypertension, Family Hx of CAD
Pulmonary RF: Moderate CLD
Cardiac Status: Acute and chronic heart failure, NYHA Class IV, Ejection Fraction = 20%
Coronary Artery Disease: 3 vessels diseased, Left Main Stenosis >=50%, Proximal LAD Stenosis >=70%, Non-ST Elevation OH, OH: 1 to 7 Days
Valve Disease: Severe MR, Mild TR
Arrhythmia: Recent A-fib, Persistent
Procedure Type:�CABG + MVR
PERIOPERATIVE OUTCOME ESTIMATE %
Operative Mortality 9.88%
Morbidity & Mortality 44.3%
Stroke 2.07%
Renal Failure 2.94%
Reoperation 10.3%
Prolonged Ventilation 42.8%
Deep Sternal Wound Infection 0.41%
Long Hospital Stay (>14 days) 28.2%
Short Hospital Stay (<6 days)* 4.9%
Clinical Summary
Planned Surgery: CABG + MVR, Urgent, First cardiovascular surgery
Demographics: 58 year old, White, male, 101.2kg, 180cm, BMI: 31.2 kg/m�
Lab Values: Creatinine: 0.9 mg/dL, Hematocrit: 48.7%, WBC Count: 13.2 10�/�L, Platelet Count: 092753 cells/�L
Substance Abuse: Former smoker, Alcohol use: 2-7 drinks/week
Risk Factors / Comorbidities: Hypertension, Family Hx of CAD
Pulmonary RF: Moderate CLD
Cardiac Status: Acute and chronic heart failure, NYHA Class IV, Ejection Fraction = 20%
Coronary Artery Disease: 3 vessels diseased, Left Main Stenosis >=50%, Proximal LAD Stenosis >=70%, Non-ST Elevation OH, OH: 1 to 7 Days
Valve Disease: Severe MR, Mild TR
Arrhythmia: Recent A-fib, Persistent
Procedure Type:�CABG + MVr
PERIOPERATIVE OUTCOME ESTIMATE %
Operative Mortality 5.32%
Morbidity & Mortality 35.3%
Stroke 1.16%
Renal Failure 2.71%
Reoperation 9.44%
Prolonged Ventilation 32.9%
Deep Sternal Wound Infection 0.518%
Long Hospital Stay (>14 days) 20.3%
Short Hospital Stay (<6 days)* 9.58%
Clinical Summary
Planned Surgery: CABG + MVr, Urgent, First cardiovascular surgery
Demographics: 58 year old, White, male, 101.2kg, 180cm, BMI: 31.2 kg/m�
Lab Values: Creatinine: 0.9 mg/dL, Hematocrit: 48.7%, WBC Count: 13.2 10�/�L, Platelet Count: 736582 cells/�L
Substance Abuse: Former smoker, Alcohol use: 2-7 drinks/week
Risk Factors / Comorbidities: Hypertension, Family Hx of CAD
Pulmonary RF: Moderate CLD
Cardiac Status: Acute and chronic heart failure, NYHA Class IV, Ejection Fraction = 20%
Coronary Artery Disease: 3 vessels diseased, Left Main Stenosis >=50%, Proximal LAD Stenosis >=70%, Non-ST Elevation OH, OH: 1 to 7 Days
Valve Disease: Severe MR, Mild TR
Arrhythmia: Recent A-fib, Persistent
[2024-02-09] MEDS: LIPITOR 40 MG PO (18:11)
--- NOTE | 2024-02-09 18:23 | PTCARENOTE ---
pt is afib on the monitor, hr in the 110s, vss. pt educated on plan of care for the night and pt verbalized understanding. pt has been visiting with family throughout the day. call higuera lasix gtt and heparin gtt running per protocol see
documentation. call higuera within reach.
[2024-02-09 19:44] VITALS: BP 99/69
[2024-02-09] MEDS: COLACE PO (19:50)
[2024-02-09] MEDS: LOPRESSOR 100 MG PO (19:50)
--- NOTE | 2024-02-09 21:40 | PTCARENOTE ---
Received pt at handoff. AOX4. Heparin gtt infusing at 19 ml/hr. Lasix gtt d/c at 1900 per order. Pt has no c/o at this time. Tele- Afib. HR 90-100s. Currently in bed; call davida w/in reach.
[2024-02-09 22:45] VITALS: BP 118/73
[2024-02-10] VITALS (9 sets, daily range): BP systolic 99–127; BP diastolic 75–86; BMI 30.5
[2024-02-10] MEDS: HEPARIN 25000 UNITS/250 ML IV ×2 (04:08→18:11)
[2024-02-10 05:08] LABS: Hematocrit 49.7 % (39.0-52.0); Hemoglobin 17.2 g/dL (13.0-18.0); Mean Corp Hgb Conc. 34.6 g/dL (33.0-37.0); Mean Corpuscular Hgb 28.2 pg (27.0-31.0); Mean Corpuscular Volume 81.5 fL (80.0-94.0); Platelet Count 418 10^3/uL (130-400); Red Cell Dist. Width 14.5 % (11.5-14.5); White Blood Cell Count 11.9 10^3/uL (4.8-10.8)
[2024-02-10 05:22] LABS: APTT 34.1 Sec (23.4-35.0)
[2024-02-10 05:46] LABS: ALT (SGPT) 81 U/L (0-50); AST (SGOT) 59 U/L (17-59); Albumin 4.5 g/dl (3.5-5.0); Alkaline Phosphatase 172 U/L (38-126); Blood Urea Nitrogen 33 mg/dl (9-20); Calcium 10.2 mg/dl (8.4-10.2); Carbon Dioxide 22 mmol/L (22-30); Chloride 102 mmol/L (98-107); Direct Bilirubin 0.5 mg/dl (0.0-0.4); Estimated Creatinine Clearance 107 ml/min; Glucose 105 mg/dl (70-99); Magnesium 2.1 mg/dl (1.6-2.3); Potassium 4.7 mmol/L (3.5-5.1); Sodium 137 mmol/L (135-145); Total Bilirubin 1.2 mg/dl (0.2-1.3); Total Protein 7.6 g/dl (6.3-8.2); eGFR > 60.00
--- NOTE | 2024-02-10 06:25 | PTCARENOTE ---
PTT 34.1 this AM. Rosanne ANAND aware. Redraw order placed.
--- NOTE | 2024-02-10 06:43 | W.PN.CT ---
Addendum entered and electronically signed by Jori Hyman MD 02/10/24 08:57:
I saw and examined the patient.
The PA's note was reviewed and I agree with the note.
Comment:
OR tomorrow
ECHO today
Original Note:
Today's Communication / Plan
-
-No major issues overnight
-Lasix gtt discontinued yesterday 02/09/24 @ 1900. Will resume this AM @ 0700. 24hrs u/o 2475
-On heparin gtt for a-fib
-Ongoing preop workup/optimization
-For CABG, +/- MAZE, STEVIE clip with Dr Matias tomorrow 02/10 (consent on chart)
-Will cont. to closely monitor
Assessment / Plan
-
- New onset a-fib with RVR
- Mod-severe MR
- New onset systolic CHF
- CAD
- ICM, EF 20-25%
- HLD
- Class 1 obesity (BMI 31)
- GERD
- Pre-diabetes (HgA1c 6.0)
- Tobacco use
CUS: <50% B/L ICA stenosis
CTA C/A/P: mild-mod emphysema
Panelipse without significant findings
Discussed patient care with: Cardiology, Nursing, Respiratory Therapy, Pharmacy and Care Team
Subjective
-
Date of Service: February 10, 2024
No issues overnight. Denies CP/SOB
Objective Data
-
Lab Results
02/10/24 04:22
02/10/24 04:22
PT 15.2 Sec (11.4-14.6) H 02/06/24 10:10
INR 1.22 02/06/24 10:10
APTT Cancelled 02/10/24 12:00
Vital Signs
Vital Signs
Temp Pulse Resp BP Pulse Ox
97.5 F 95 16 104/75 96
02/10/24 04:25 02/10/24 04:13 02/10/24 04:25 02/10/24 04:13 02/10/24 04:25
CT Intake/Output/Weight
02/09/24 02/09/24 02/10/24
06:59 18:59 06:59
Intake Total 150 / 978 480 / 480
Output Total 1450 / 2700 2475 / 2475
Balance -1300 / -1722 / -1994 -2475 / -1994
SaO2: 96 (RA)
Physical Exam
-
General: Awake, Oriented and AOx3
Cardiovascular: Irregular rate & rhythm
Respiratory: Decreased Breath Sounds
Extremities: Edema +1
Data Reviewed
-
Lab Results: Results Reviewed
Medications: Active Meds Reviewed
Chest X-Ray: Report Reviewed and Image Reviewed
ECG: Report Reviewed and Image Reviewed
[2024-02-10 06:52] LABS: APTT 85.6 Sec (23.4-35.0)
--- NOTE | 2024-02-10 07:00 | PTCARENOTE ---
Bedside walking rounds report received : patient received a change of shift from IVU: report received from IVU RN: heparin gtt verified a 1900units per hour and ptt was pending. A fibb on monitor rates in the low 100's. Denies pain. Patient is
going to be for cvor with Dr. Matias tomorrow 2nd case for a CABG and possible MVR pending repeat echo this am Lasix gtt to be resumed this am.
[2024-02-10] MEDS: LOW STRENGTH ASPIRIN 81 MG PO (07:53)
[2024-02-10] MEDS: LOPRESSOR 100 MG PO ×2 (07:53→20:08)
[2024-02-10] MEDS: COLACE PO ×2 (07:53→20:08)
[2024-02-10] MEDS: PROTONIX 40 MG PO (07:54)
[2024-02-10] MEDS: LASIX 50 IV (09:53)
--- NOTE | 2024-02-10 12:00 | PTCARENOTE ---
No acute changes. Patient beginning to diurese.
[2024-02-10] MEDS: LANOXIN 250 MCG PO (12:10)
--- NOTE | 2024-02-10 14:15 | W.PN.CD ---
Today's Communication / Plan
-
-CABG planned for tomorrow.
-EF improved on echocardiogram today, now 35-40%.
-Echocardiogram today also revealed a significant improvement in MR, now only mild.
-Possible significant atheroma/plaque in the aortic arch on echocardiogram; findings relayed to CT Surgery team.
Impression / Plan
-
Background: 58M presented to [facility] with SOB. Found to be in AF with RVR. LVEF 20-25%. [facility] with MVCAD. TTE with moderate�severe MR.
NSTEMI/Coronary artery disease: with plans for inpatient CABG
-LVEF 20-25%, the following day he had an abnormal stress test, the day after he then had C with findings as below
-Continue ASA 81 mg daily, heparin drip (with monitoring of tele and Hgb)
-CABG planned for tomorrow.
-EF improved on echocardiogram today, now 35-40%.
Moderate to severe mitral regurgitation
-Volume status significantly improved with Lasix drip; now discontinued.
-Echocardiogram today also revealed a significant improvement in MR, now only mild.
-Possible significant atheroma/plaque in the aortic arch on echocardiogram; findings relayed to CT Surgery team.
HFrEF, ICM (EF 20-25%) - acute on chronic
-Volume status improved with Lasix drip; now discontinued.
-GDMT as tolerated
-Beta-ish: metoprolol succinate
-ACEi/ARB: Hold in the setting of CABG evaluation
-MRA: Hold in the setting of CABG evaluation
-SGLT2: Case management to [place]
-ICD: Reevaluate LVEF 3 months after maximally tolerated GDMT
-Trend daily weight, I/O, tele, and BMP with diuresis
Atrial fibrillation with rapid ventricular response
-Heart rates now improved with digoxin.
-Continue current dose of Toprol-XL.
-Oral Anticoagulation: Heparin drip now; eventually apixaban 5 mg twice daily post-operatively
-[id number]: Score at least 3 (Heart failure, HTN, Vascular disease)
Dyslipidemia
-LDL 82, increased atorvastatin to 40 mg daily
Prediabetes, HgbA1c 6.0%, consider SGLT2
Obesity, BMI 32, he would benefit from weight loss
Former smoker, 2 PPD x 30 years, quit in 2021, continued cessation recommended
Data:
Transthoracic echocardiogram 02/03/2024:
LVEF 20-25%. Severe global hypokinesis. Moderate to severe mitral valve regurgitation. Mitral valve leaflets are tethered. Mildly elevated PASP, 31 mmHg.
Cardiac catheterization, 02/05/2024:
Severe multivessel coronary artery disease with left main involvement. Moderate to severely depressed LVEF with at least moderate mitral regurgitation. Mild to moderately elevated left and right pressures with no evidence of aortic stenosis. CI
2.33.
Physical Exam
Vital Signs/Labs
Vital Signs
Temp Pulse Resp BP Pulse Ox
98.5 F 99 18 114/75 96
02/10/24 12:06 02/10/24 12:10 02/10/24 12:06 02/10/24 12:06 02/10/24 12:06
02/09/24 02/10/24 02/11/24
06:59 06:59 06:59
Actual Weight 100.1 kg 99.1 kg
02/10/24 04:22
02/10/24 04:22
PT 15.2 Sec (11.4-14.6) H 02/06/24 10:10
INR 1.22 02/06/24 10:10
APTT Cancelled 02/10/24 12:00
Magnesium 2.1 mg/dl (1.6-2.3) 02/10/24 04:22
Triglycerides 75 mg/dl (10-149) 02/06/24 10:10
LDL Cholesterol, Calc 82 mg/dl 02/06/24 10:10
VLDL Cholesterol, Calc 15 mg/dl (0-30) 02/06/24 10:10
HDL Cholesterol 39 mg/dl 02/06/24 10:10
02/06/24
10:10
Ejf-X-Yvqspyoqmut Pept 1390
Physical Exam
Constitutional: No acute distress and Comfortable
EENT: Anicteric
Cardiovascular: Pedal edema is absent, Systolic murmur absent, Rhythm/rate is irregular and S1S2 is normal
Respiratory: Respiratory effort normal and Lungs clear to auscul.
GI: Soft
Neuro/Psych: AO x 3
Other: Skin (Warm, dry, intact)
Data Reviewed
-
Date of Service: February 10, 2024
EKG: Tracing Personally Visualized and interpreted (Telemetry: A-fib)
Echo: Tracing Personally Visualized and interpreted (LVEF 35-40%, mild MR; possible aortic arch plaque/atheroma.)
Medical Tests (PFT, Pathology etc): Discussed with Physician (CT Surgery)
Labs: Labs Reviewed by me
--- NOTE | 2024-02-10 16:00 | PTCARENOTE ---
No acute changes. Vitals stable. A fibb controlled.
[2024-02-10] MEDS: LIPITOR 40 MG PO (18:10)
--- NOTE | 2024-02-10 21:00 | PTCARENOTE ---
assumed care of patient @ 1900. AOX3. VSS on RA. no c/o pain. Heparin at 1900 u / hr. lasix turned off per CTPA. pt clipped, scrubbed with CHG soap . all questions answered. resting comfortably with call higuera within reach .
[2024-02-10 23:23] LABS: Glucose - Point of Care 120 mg/dl (70-99)
--- NOTE | 2024-02-10 23:25 | PTCARENOTE ---
remains afib on tele. no change in assessment .
[2024-02-11] VITALS (12 sets, daily range): BP systolic 80–131; BP diastolic 55–98; BMI 30.4
[2024-02-11 05:51] LABS: Hematocrit 53.1 % (39.0-52.0); Hemoglobin 17.7 g/dL (13.0-18.0); Mean Corp Hgb Conc. 33.3 g/dL (33.0-37.0); Mean Corpuscular Hgb 28.1 pg (27.0-31.0); Mean Corpuscular Volume 84.4 fL (80.0-94.0); Mean Platelet Volume 9.9 fL (7.4-10.4); Platelet Count 401 10^3/uL (130-400); Red Blood Cell Count 6.29 10^6/uL (4.70-6.10); Red Cell Dist. Width 14.3 % (11.5-14.5); White Blood Cell Count 10.7 10^3/uL (4.8-10.8)
[2024-02-11] MEDS: HEPARIN 25000 UNITS/250 ML IV (05:51)
[2024-02-11 06:04] LABS: APTT 135.1 Sec (23.4-35.0)
--- NOTE | 2024-02-11 06:32 | W.CVOR.SURPR ---
CVOR Surgeon Immed Pre Op
-
I have examined this patient prior to performance of the scheduled procedure.
The patient's condition is unchanged from the time of the dictated/written History and
Physical and the patient is able to undergo the scheduled procedure.
Improvement in overall LVEF as well as ischemic MR to mild. Will plan for CABG + LA MAZE + STEVIE E, likely will defer any MV intervention for now.
[2024-02-11 06:36] LABS: Blood Urea Nitrogen 34 mg/dl (9-20); Calcium 9.9 mg/dl (8.4-10.2); Carbon Dioxide 22 mmol/L (22-30); Chloride 103 mmol/L (98-107); Estimated Creatinine Clearance 106 ml/min; Glucose 103 mg/dl (70-99); Potassium 4.4 mmol/L (3.5-5.1); Sodium 138 mmol/L (135-145); eGFR > 60.00
--- NOTE | 2024-02-11 06:41 | PTCARENOTE ---
2nd CHG soap bath given. PTT 135.1, heparin gtt paused.
--- NOTE | 2024-02-11 07:00 | PTCARENOTE ---
Bedside walking rounds report received: patient seen on rounds resting in bed. Room air. Awake alert and oriented x 3. Denies pain. A fibb on monitor, uncontrolled with activity. Awaiting his surgery today cvor with Dr. Matias second case cabg/jaron
clip and possible mvr, but less likely. See flowrecord for remaining assessments
--- NOTE | 2024-02-11 07:20 | PTCARENOTE ---
Heparin gtt restarted at 1700units/hr per protocol.
[2024-02-11] MEDS: LOW STRENGTH ASPIRIN 81 MG PO (08:21)
[2024-02-11] MEDS: LOPRESSOR 100 MG PO (08:21)
[2024-02-11] MEDS: COLACE PO (08:22)
[2024-02-11] MEDS: PROTONIX 40 MG PO (08:22)
--- NOTE | 2024-02-11 09:42 | CM ---
pt in OR today, cm to follow
[2024-02-11] MEDS: MAGNESIUM OXIDE 500 MG PO (10:47)
[2024-02-11] MEDS: BACTROBAN 2% OINTMENT 1 APPLIC NASAL ×2 (10:47→21:15)
[2024-02-11] MEDS: PROTONIX PO (10:48)
--- NOTE | 2024-02-11 11:15 | PTCARENOTE ---
Patient brought to cvor holding area: report given to CVOR staff. Heparin gtt stopped prior to leaving cvicu.
[2024-02-11 12:15] LABS: ACT+ - POC 145 Seconds (82-134)
[2024-02-11 12:18] LABS: B.E. - POC -1.7 mmol/L; Glucose - POC 110 mg/dl (65-99); HCO3 - POC 21 mmol/L (21-29); Hematocrit - POC 55 % PCV (42-52); Hemodilution- POC Yes; Hemoglobin Calculated - POC 18.7; Ionized Calcium - POC 1.18 mmol/L (1.12-1.27); O2 Saturation %Calculated-POC 96.8 5 (92-96); PCO2 - POC 31 mmHg (35-45); PO2 - POC 84 mmHg (80-100); POC Comment PRE; Potassium - POC 3.9 mmol/L (3.6-5.0); Sodium - POC 139 mmol/L (135-145); pH - POC 7.45 (7.35-7.45)
[2024-02-11 12:36] LABS: Urine Albumin Trace (Neg - Trace); Urine Bilirubin 1+ (Negative); Urine Character Clear (Clear); Urine Color Yellow; Urine Glucose Negative (Negative); Urine Ketone Negative (Negative); Urine Leukocyte Negative (Negative); Urine Nitrite Negative (Negative); Urine Occult Blood Negative (Negative); Urine Urobilinogen Negative (Neg - 1+)
[2024-02-11 14:18] LABS: ACT+ - POC 459 Seconds (82-134)
--- NOTE | 2024-02-11 14:28 | W.PN.CD ---
Today's Communication / Plan
-
CABG today.
Impression / Plan
-
Impression/Plan: 58[address] [facility] with SOB, found to be in AF with RVR with new systolic cardiomyopathy (LVEF 20-25%) with moderate/severe MR prompting a LHC revealing MVCAD. The patient was subsequently transferred for surgical
revascularization.
#NSTEMI/Coronary artery disease
-Acute.
-In OR today for CABG.
-Anticipate routine post operative management.
-Wean vent to extubate.
-Wean pressors/inotropes for CI > 2.2, MAP > 65 mmHg.
-Chest tube/pain management per CT surgery.
-High dose, high potency statin when taking PO.
#Moderate to severe mitral regurgitation
-Volume status significantly improved with furosemide drip; now discontinued.
-Echocardiogram today also revealed a significant improvement in MR, now only mild. Reassess in OR.
#HFrEF/ICM (EF 20-25%)
-Acute on chronic.
-Volume status improved with furosemide drip; now discontinued.
-GDMT as tolerated
-Beta-ish: metoprolol succinate.
-ACEi/ARB: Hold in the setting of CABG evaluation.
-MRA: Hold in the setting of CABG evaluation.
-SGLT2: Case management to [place].
-ICD: Reevaluate LVEF 3 months after maximally tolerated GDMT.
-Trend daily weight, I/O, tele, and BMP with diuresis.
#Paroxysmal atrial fibrillation with rapid ventricular response
-Currently in AF.
-Rate control with metoprolol and digoxin.
-Oral Anticoagulation: Heparin drip now; eventually apixaban 5 mg twice daily post-operatively.
-[id number]: Score at least 3 (Heart failure, HTN, Vascular disease).
-Anticipate MAZE/LAAL intraoperatively.
#Dyslipidemia
-Chronic, stable.
-Total cholesterol = [ ], LDL = 82, HDL = [ ], Triglycerides = [ ].
-Atorvastatin to 40 mg daily.
-Goal LDL < 55.
#Prediabetes, HgbA1c 6.0%, consider SGLT2
#Obesity, BMI 32, he would benefit from weight loss
#Former smoker, 2 PPD x 30 years, quit in 2021, continued cessation recommended
Subjective/Interval History:
CABG today.
DATA:
Transthoracic echocardiogram 02/03/2024:
LVEF 20-25%. Severe global hypokinesis. Moderate to severe mitral valve regurgitation. Mitral valve leaflets are tethered. Mildly elevated PASP, 31 mmHg.
Cardiac catheterization, 02/05/2024:
Severe multivessel coronary artery disease with left main involvement. Moderate to severely depressed LVEF with at least moderate mitral regurgitation. Mild to moderately elevated left and right pressures with no evidence of aortic stenosis. CI
2.33.
TTE, 02/10/2024:
CONCLUSIONS
-Left ventricular ejection fraction is approximately 35-40%. Global
hypokinesis. Wall motion is consistent with conduction abnormality.
-Normal right ventricular size and function.
-Moderately dilated left atrium.
-Mitral valve opens normally. Mild mitral regurgitation.
-Aortic sclerosis without stenosis.
-Trace tricuspid regurgitation. Estimated pulmonary artery pressure of 20-25
mmHg.
-Possible notable plaque seen in the aortic arch (image views 72-77).
Physical Exam
Vital Signs/Labs
Vital Signs
Temp Pulse Resp BP Pulse Ox
36.5 C 90 18 115/92 97
02/11/24 07:32 02/11/24 10:00 02/11/24 07:32 02/11/24 07:32 02/11/24 08:00
02/10/24 02/11/24 02/12/24
11:59 11:59 11:59
Actual Weight 99.1 kg 98.7 kg
02/11/24 05:27
02/11/24 05:27
PT 15.2 Sec (11.4-14.6) H 02/06/24 10:10
INR 1.22 02/06/24 10:10
APTT 135.1 Sec (23.4-35.0) H 02/11/24 05:27
Magnesium 2.0 mg/dl (1.6-2.3) 02/11/24 05:27
Triglycerides 75 mg/dl (10-149) 02/06/24 10:10
LDL Cholesterol, Calc 82 mg/dl 02/06/24 10:10
VLDL Cholesterol, Calc 15 mg/dl (0-30) 02/06/24 10:10
HDL Cholesterol 39 mg/dl 02/06/24 10:10
02/06/24
10:10
Hvy-Z-Vulgvjgbntk Pept 1390
Physical Exam
Exam deferred as the patient is currently in surgery.
Data Reviewed
-
Date of Service: February 11, 2024
Medical Decision Making: Reviewed Test Results and Test Interpretation
EKG: Tracing Personally Visualized and interpreted and Report Reviewed by me
Echo: Report Reviewed by me
X-Ray/CT/US/MRI/NUC/PET: Report Reviewed by me
Medical Tests (PFT, Pathology etc): Report Reviewed by me
Labs: Labs Reviewed by me
Old Records: Reviewed
[2024-02-11 14:45] LABS: ACT+ - POC 468 Seconds (82-134)
[2024-02-11 15:16] LABS: B.E. - POC -0.1 mmol/L; Glucose - POC 133 mg/dl (65-99); HCO3 - POC 26 mmol/L (21-29); Hematocrit - POC 47 % PCV (42-52); Hemodilution- POC Yes; Hemoglobin Calculated - POC 15.9; Ionized Calcium - POC 1.03 mmol/L (1.12-1.27); O2 Saturation %Calculated-POC 99.9 5 (92-96); PCO2 - POC 47 mmHg (35-45); PO2 - POC 269 mmHg (80-100); POC Comment CPB; Potassium - POC 6.4 mmol/L (3.6-5.0); Sodium - POC 135 mmol/L (135-145); pH - POC 7.35 (7.35-7.45)
[2024-02-11 15:18] LABS: ACT+ - POC 546 Seconds (82-134)
[2024-02-11 15:53] LABS: B.E. - POC -0.7 mmol/L; Glucose - POC 152 mg/dl (65-99); HCO3 - POC 24 mmol/L (21-29); Hematocrit - POC 47 % PCV (42-52); Hemodilution- POC Yes; Hemoglobin Calculated - POC 16.1; Ionized Calcium - POC 1.06 mmol/L (1.12-1.27); O2 Saturation %Calculated-POC 99.7 5 (92-96); PCO2 - POC 38 mmHg (35-45); PO2 - POC 200 mmHg (80-100); POC Comment WARM; Potassium - POC 6.1 mmol/L (3.6-5.0); Sodium - POC 136 mmol/L (135-145)
[2024-02-11 15:57] LABS: ACT+ - POC 556 Seconds (82-134)
[2024-02-11 16:21] LABS: B.E. - POC -1.2 mmol/L; Glucose - POC 156 mg/dl (65-99); HCO3 - POC 23 mmol/L (21-29); Hematocrit - POC 47 % PCV (42-52); Hemodilution- POC Yes; Hemoglobin Calculated - POC 16.1; Ionized Calcium - POC 1.08 mmol/L (1.12-1.27); PCO2 - POC 38 mmHg (35-45); PO2 - POC 105 mmHg (80-100); POC Comment WARM; Potassium - POC 5.2 mmol/L (3.6-5.0); Sodium - POC 138 mmol/L (135-145); pH - POC 7.39 (7.35-7.45)
[2024-02-11 16:26] LABS: ACT+ - POC 520 Seconds (82-134)
[2024-02-11 16:32] LABS: B.E. - POC -1.8 mmol/L; Glucose - POC 153 mg/dl (65-99); HCO3 - POC 23 mmol/L (21-29); Hematocrit - POC 47 % PCV (42-52); Hemodilution- POC Yes; Ionized Calcium - POC 1.09 mmol/L (1.12-1.27); O2 Saturation %Calculated-POC 98.4 5 (92-96); PCO2 - POC 38 mmHg (35-45); PO2 - POC 112 mmHg (80-100); POC Comment WARM; Potassium - POC 5.1 mmol/L (3.6-5.0); Sodium - POC 138 mmol/L (135-145); pH - POC 7.39 (7.35-7.45)
[2024-02-11 16:35] LABS: ACT+ - POC 536 Seconds (82-134)
[2024-02-11 16:47] LABS: B.E. - POC 1.7 mmol/L; Glucose - POC 147 mg/dl (65-99); HCO3 - POC 26 mmol/L (21-29); Hematocrit - POC 45 % PCV (42-52); Hemodilution- POC Yes; Hemoglobin Calculated - POC 15.3; Ionized Calcium - POC 1.08 mmol/L (1.12-1.27); O2 Saturation %Calculated-POC 99.7 5 (92-96); PCO2 - POC 40 mmHg (35-45); PO2 - POC 201 mmHg (80-100); POC Comment WARM; Potassium - POC 4.6 mmol/L (3.6-5.0); Sodium - POC 141 mmol/L (135-145); pH - POC 7.43 (7.35-7.45)
[2024-02-11 17:39] LABS: ACT+ - POC 140 Seconds (82-134)
[2024-02-11 17:43] LABS: B.E. - POC -2.1 mmol/L; Glucose - POC 157 mg/dl (65-99); HCO3 - POC 25 mmol/L (21-29); Hematocrit - POC 44 % PCV (42-52); Hemodilution- POC Yes; Hemoglobin Calculated - POC 14.9; Ionized Calcium - POC 1.27 mmol/L (1.12-1.27); O2 Saturation %Calculated-POC 97.5 5 (92-96); PCO2 - POC 51 mmHg (35-45); PO2 - POC 108 mmHg (80-100); POC Comment POST; Sodium - POC 142 mmol/L (135-145)
--- NOTE | 2024-02-11 19:30 | PTCARENOTE ---
received pt into room 3 from [facility] on 1929. pt intubated, sedated post-op. ETT 8.0, 24 cm at the lip. vent settings 14/600/5/5/60%. Impella 5.5 w/ direct aortic insertion at P-5. R IJ cordis w/ swan floated to 52cm. L radial a-line. all lines
leveled, zeroed, flushed. Levophed, dobutamine, precedex, and insulin gtts infusing. see flowsheet for details. temp epicardial A/V wires. pulse generator plugged in, turned off. CTx4 (mediastinal x2, R & L pleural) to -20cm wall suction, draining
sanguineous drainage. robertson catheter draining clear, yellow urine. PIV x2 intact. see worklist for complete nursing assessment, interventions, VS, and I&Os.
[2024-02-11 19:36] LABS: Hematocrit 41.2 % (39.0-52.0); Hemoglobin 14.1 g/dL (13.0-18.0); Platelet Count 302 10^3/uL (130-400)
[2024-02-11 19:39] LABS: B.E. -2.1 mmol/L; HCO3 25.1 mmol/L (21-28); Ionized Calcium 1.19 mMOL/L (1.15-1.33); O2 Saturation % 99.3 % (94-98); PCO2 51 mmHg (35-48); PO2 125 mmHg (83-108); Potassium 4.8 mMOL/L (3.5-5.1); Sodium 136 mMOL/L (136-145)
[2024-02-11] MEDS: ALBUMIN 5% 250 IV (19:42)
[2024-02-11 19:43] LABS: Glucose - Point of Care 169 mg/dl (70-99)
--- NOTE | 2024-02-11 19:44 | W.PN.CT.SURG ---
CT Surgery Operative Note
-
CARDIAC SURGERY OPERATIVE REPORT
Preoperative Diagnosis: Multivessel Coronary Artery Disease with left main disease as well as new acute on chronic ischemic heart failure and mitral valve insufficiency
Postoperative Diagnosis: Same
Procedure(s) Performed:
1. Standard sternotomy with aortic and right atrial cannulation
2. Coronary artery bypass grafting x 5 (In situ WALKER to LAD, Ao to RSVG to ramus, Ao to RSVG to OM sequential to LPL, Ao to RSVG to RPDA)
3. Insertion of a direct aortic ventricular assist device [5.5 Impella] via a 10 mm graft tunneled to the right supraclavicular position sewn directly to the distal ascending aorta, intraoperative management of VAD
4. Left atrial surgical ablation, modified maze procedure
5. Left atrial appendage exclusion, 35 mm clip
6. Endoscopic vein harvesting of right lower extremity
7. Transesophageal echocardiography
8. Placement of temporary atrial and ventricular pacing wires
Date of Surgery: 02/11/2024
Comorbidities:
1. Acute on chronic ischemic heart failure with evidence of cardiogenic shock, cardiac index of 1.3-1.5 and acute respiratory failure secondary to pulmonary edema and volume overload
2. Multivessel coronary artery disease involving the LAD and left main
3. New onset atrial fibrillation with rapid ventricular response
4. Moderate to severe ischemic mitral valve insufficiency, functional [type IIIb]
5. Hyperlipidemia
6. Hypertension
7. Class I obesity, BMI of greater than 30
8. GERD
9. Prediabetes, HbA1c of 6.0
10. History of tobacco abuse
11. Mild to moderate emphysema
Attending Surgeon: Terry Matias MD, MS
Assistants: Radha Man PA-C (present and necessary to certified first assistant, endoscopic vein harvest, retraction, suction, exposure, suture management, and wound closure under my direction)
Anesthesiology: Ian Wills MD and Stewart Sun MD and Eddie Best CRNA
Scrub and Circulating RNs: Jose Bagley RN, Christiane Koehler RN
Store Receiving Specialist: Magui Arellano CCP
Anesthesia: GETA
EBL: per perfusion records
Products: 2 plts
CPB Time: 151 minutes
Aortic Cross Clamp Time: 118 minutes
Indication(s) for Procedures: This is a 58-year-old male who presented to outside facility was transferred here urgently for CABG and mitral valve assessment. He was initially respiratory failure requiring oxygen and shortness of breath. He was
found to have new ischemic cardiomyopathy, acute on chronic with an EF of approximately 20 to 25% and functional mitral valve insufficiency with 3+ severity. On arrival, he was severely overloaded with fluid and required aggressive diuresis using a
diuretic drip which were able to take off approximately 8 kg of weight volume. His STS risk was calculated. After some aggressive diuresis repeat echocardiogram was performed which demonstrated some improvement in his heart function as well as
decrease in severity of mitral valve insufficiency. The plan was to move forward with coronary revascularization with possible ventricular assist device support given the severely depressed left ventricular function. The risk and benefits were
explained to the patient and her family, both accepted the risks and agreed to move forward.
Conduit(s) Quality:
WALKER -good/large size, uniform, good flow on flow probe assessment
RSVG -good/some varicosities in variation in size but overall decent quality graft conduit, some sclerosis towards the proximal end
Target(s) Quality:
RCA/PDA -good/was able to flow at approximately 30 cc a minute with a pressure of 80 mmHg on test dosing of antegrade
LPL�good/was able to flow approximately 50 cc a minute at a pressure of 80 mmHg test dosing of antegrade
OM -good/this was a sequential graft to the LPL branch, was able to flow approximately 40 to 50 cc a minute at a pressure of 80 mmHg
Ramus�good quality but overall heavily and diffusely diseased/calcified, was able to flow at approximately 50 cc a minute at a pressure of 80 mmHg
LAD -average/calcified intramuscular target, the distal end was small and diffusely diseased as seen on the cath. I was able to graft just before the diagonal vessel at the midportion of the vessel. There was good visual flow in the LAD territory
upon removal of the bulldog clamp.
Implants:
1. 10 mm Hemashield lovelock graft, SN [id number]
2. 5.5 Impella, SN [id number]
3. 35mm STEVIE Clip, SN [id number]
4. 6 screw plate with 6 x 12 mm screws
Findings: His left ventricular function preoperatively on transesophageal echocardiogram was severely depressed. It was lower than his preoperative transthoracic echocardiogram. His EF is estimated to be approximately 10% at best. His cardiac
index was measured to be approximately 1.3-1.5. Following surgery his EF was somewhat improved to maybe 20%, at this point he was on P5 Impella support. [place] cardiac output measured on the device was 1.7, with overall combined cardiac output of
4.7. Cardiac power output was 0.6 and slowly improved to 0.8. Following surgery he was on 5 dobutamine and 5 of Levophed. There were no obvious regional wall motion abnormalities. There was global hypokinesis. The left atrial appendage was
verified to be free of any thrombus or debris preoperatively and found to be totally flush with no flow on color Doppler after clipping. He started the case in atrial fibrillation with a rapid ventricular rate of approximately 110. After coming
off of cardiopulmonary bypass he was sinus tachycardia, likely secondary to the dobutamine use.. The WALKER was harvested in a skeletonized fashion. Following bypass grafting, test dose cardioplegia was given down each distal and confirmed patency and
hemostasis. Each distal was probed both proximally and distally to confirm disease and patency, respectively. A 5.5 Impella was inserted via a direct 10mm ascending aortic graft that was tunneled to the right supraclavicular region. The 5.5
Impella was positioned with the bend at the level of the aortic valve. Due to angulation of his left ventricle, the Impella could not be seated in the apex. Overall there were no suction events and good flow at both the inlet and outlet of the
ventricular assist device. At the conclusion of the case, we were off on our counts particular and Ray-Rehana's. Chest x-ray intraoperative verified that the missing Ray-Rehana was located intra thoracic. The skin incision was then reopened and 3 of
the sternal wires towards the xiphisternum and lower sternal body were removed allowing visualization of the Ray-Rehana overlying the WALKER graft. The Ray-Rehana was removed and an additional wire was placed for reinforcement followed by a 6 screw plate
with 12 mm screws. This was disclosed to the family.
Description of Procedure: The patient was taken to the operating room. Their identity and procedure to be performed were verified and they were positioned supine on the operating table. Induction via general anesthesia with endotracheal intubation
was performed and central venous access and arterial monitoring were inserted. A preoperative transesophageal echocardiogram was performed to assess cardiac function and valvular function. The patient was then prepped and draped from chin to feet in
a sterile fashion. A preoperative time-out was performed with all members of the team present. A midline chest incision was performed along with median sternotomy. Simultaneous endoscopic access of the right lower extremity for saphenous vein
harvest was obtained along with administration of an initial 5,000 units of IV heparin. A RulTract sternal retractor was positioned to exposure the left internal mammary bed. The mammary was harvested and found to have good flow. A bulldog clamp was
applied to the distal end of the mammary after dividing it. It was wrapped in a papaverine soaked RayTec and replaced back into the left hemithorax. The RulTract was exchanged for a median sternal retractor. The innominate vein was isolated. Full
heparinization was given (a total of 70,000 units). We created a pericardial well. The aortic cannulation site was chosen where it was soft, pliable, and free of calcium high up towards the mid arch in anticipation of needing a direct aortic graft.
Cannulation was performed with an arterial cannula in the mid arch and a triple-stage venous cannula through the right atrial appendage. The arterial cannula line had an appropriate bounce and correlating pressures with test dosing. Next, a root
vent/antegrade cannula was inserted into the ascending aorta. The ACT was confirmed to be over 400 and retrograde autologous priming was performed before commencing cardiopulmonary bypass. The pulmonary artery was away from the aorta to
facilitate a clamp site. At this point the space between the SVC and right pulmonary artery were developed as well as the oblique sinus. The encompass clamp was then passed across the oblique and transverse sinuses and 3 pairs of successful
ablations were performed. The aortic cross-clamp was placed after decreasing the flow on the bypass and mean arterial pressure. A total of 1.2L initial dose of antegrade Del-Nido cardioplegia solution was given and planned for re-dosing every 75
minutes as necessary. There was rapid electro-mechanical arrest of the heart at 300 cc of cardioplegia. The left ventricle was observed for distention on echocardiogram and manual palpation. Cold slush was placed into a sponge and topically on the
RV while we systemically cooled to 34 degrees centigrade. The heart was then medialized and the ligament of Jose was divided followed by a 35 mm clip applied to the left atrial appendage.
I positioned the heart to expose the distal right coronary at the posterior descending artery. A [place] blade was used to expose the coronary and perform the arteriotomy. Coronary Barrientos scissors were used to enlarge the incision. The saphenous vein
was trimmed and beveled to an appropriate size. The distal anastomosis was performed using 7-0 prolene in an end-to-side fashion. Antegrade cardioplegia was administered into the graft. Appropriate hemostasis and flow were confirmed. The graft was
measured for length to the aorta and cut. A suitable site on the LPL was chosen. We dissected and prepared the distal target in a similar fashion. An end-to-side anastomosis was created with a 7-0 prolene. Antegrade cardioplegia was administered
into the graft. Appropriate hemostasis and flow were confirmed. The graft was then measured in order to accommodate a sequential OM graft. The OM was prepped in a similar fashion and a small coronary arteriotomy was created. A [id number]
anastomosis was created after creating a small venotomy on the underbelly of the vein graft. This was performed in a running fashion with 7-0 Prolene. Sequential testing of the graft demonstrated excellent flow with test dosing antegrade. The
graft was measured for length to the aorta and cut. Next a suitable target on the ramus branch was identified. This was diffusely diseased. A small coronary tracheotomy was created at a soft spot on the vessel and end-to-side anastomosis was
green with the vein graft. A suitable target on the mid/distal left anterior descending was identified. We dissected and prepared the distal target in a similar fashion. We retrieved the WALKER from the chest and created a pericardial opening while
being cognizant of the phrenic nerve to facilitate the course of the mammary. The distal end of the mammary was prepped and beveled to size. We verified orientation and length of the GABY and found brisk flow. An end-to-side anastomosis was created
with a 7-0 prolene. We temporarily released the bulldog clamp on the mammary to inspect flow. Perfusion to the LAD territory was visualized and hemostasis was confirmed. The bull clamp was replaced on the mammary. The heart was filled and the root
was distended with antegrade cardioplegia to make final assessment of graft length and orientation. We created 3 aortotomies using a #11 blade then a 4.0mm aortic punch. The proximal anastomoses were created in an end-to-side fashion using 6-0
prolene. At the the same time, we re-warmed to 36.5 degrees centigrade. At this point the site of the antegrade cannula was then removed and the aortic cross-clamp was positioned more distally onto the arch. Using a 4 oh punch side of the
antegrade was enlarged in order to accommodate a 10 mm graft. The graft was beveled to 45 degrees and sewn onto the distal ascending aorta with 5-0 Prolene in a running fashion. BioGlue was used to reinforce the suture line. The graft was then
tunneled out the right supraclavicular region maintaining orientation. The Impella device was then inserted while the heart was still arrested through the graft and a small aortotomy was created just proximal to the 10 mm graft site. This allowed
for direct visualization the aortic valve and passage of the Impella device into the appropriate position. The aortotomy was closed in 2 layers with 4-0 Prolene in a running fashion. The bulldog clamp was removed from the mammary. Temporary
bipolar ventricular pacing wires were placed on the base of the right ventricle along with temporary atrial pacing at the right atrial SVC junction. The patient was placed in a trendelenburg position and flows on bypass were lowered. The aortic
cross clamp was removed and flows were slowly brought back up. An 18-gauge needle was used to de-air the 10 mm graft. The Impella device was turned on initially to a P4 setting. There appeared to be appropriate position of the heading towards the
base of the wall due to the angulation of the left ventricle. All bypass grafts were inspected and were free from kinking or twisting. The distal and proximal anastomoses appeared hemostatic. A few repair sutures were placed at the 10 mm graft
site and aortotomy line. Once transesophageal echocardiography appeared satisfactory for de-airing, the flows were lowered along with maintaining Impella support. After verifying acceptable parameters, we initiated weaning from cardiopulmonary
bypass. Once we were off cardiopulmonary bypass, the venous cannula was clamped and removed. A test dose of protamine was administered and the patient was monitored for any adverse reaction before resuming protamine. There was some graft using a
needle hole bleeding which resolved with hemostatic agent packing as well as administration of 2 packs of platelets. Once half of the protamine dose was delivered, pump suckers were turned off and the systolic blood pressure was lowered for aortic
decannulation. The aortic cannula was removed and pursestrings were tied down. All cannulation sites were oversewn with a 4-0 prolene. The mammary bed was inspected and hemostasis was confirmed. Once the mediastinum was hemostatic, 19Fr Peterson drain
was placed in the left and right pleural cavity and two 24Fr Peterson drains were placed within the pericardium. The sternum was approximated with 4 #7 single and 3 #8 double stainless steel wires. Fascia was approximated with #1 vicryl suture. The
subcutaneous, dermis and epidermis were closed in layers in a running fashion. The skin wound was cleansed and dressed. The needle counts at this point were correct however the Ray-Rehana counts were off by 1. An intraoperative x-ray was performed
verifying that there was a Ray-Rehana overlying the WALKER graft. This incision was reopened and 3 of the lower sternal wires were removed. This allowed visualization of the Ray-Rehana overlying the WALKER graft on the LAD. This was removed. Sponge counts
were then correct. Lower sternum was then reapproximated with a single wire followed by a 6 screw plate. Incision was then cleansed and washed once more and closed in layers as before. The Impella device had a bio patch placed over top of its
insertion point at the skin level and covered with a Tegaderm dressing. Multiple stay dressings were placed to secure the Impella device along the right anterior chest wall.
All final instrument, sponge, and needle counts were confirmed to be correct x 2 at the end of the operation. The patient was transferred to the cardiac intensive care unit in critical but stable condition.
I, Dr. Terry Matias, was present, scrubbed for, and performed all critical elements of this procedure.
Terry Matias MD, MS
Cardiothoracic Surgeon
[facility]
This operative dictation was created using the English [employer] dictation system. Please excuse any grammatical, typographical, or 'sound alike' errors
[2024-02-11 19:46] LABS: INR 1.46; PT 17.6 Sec (11.4-14.6)
[2024-02-11] MEDS: VERSED 0.5 MG IV ×4 (19:54→21:16)
[2024-02-11 20:08] LABS: Blood Urea Nitrogen 32 mg/dl (9-20); Estimated Creatinine Clearance 106 ml/min; Glucose 170 mg/dl (70-99); Magnesium 2.4 mg/dl (1.6-2.3)
[2024-02-11] MEDS: DILAUDID 0.5 MG IV (20:10)
[2024-02-11] MEDS: CALCIUM CHLORIDE 10% SYRINGE 60 MG IV (20:20)
[2024-02-11] MEDS: NSS 500 IV (20:21)
[2024-02-11] MEDS: VANCOCIN 300 MG IV (20:22)
[2024-02-11] MEDS: VANCOCIN 300 ML IV (20:22)
[2024-02-11] MEDS: ANCEF 10 IV ×2 (20:22)
[2024-02-11] MEDS: NEURONTIN PO ×2 (20:23→21:43)
[2024-02-11] MEDS: LIPITOR PO (20:23)
[2024-02-11] MEDS: PACERONE PO ×2 (20:23→21:43)
[2024-02-11] MEDS: NOVOLOG FLEXPEN SC (20:23)
[2024-02-11] MEDS: TYLENOL PO ×2 (20:23→21:43)
[2024-02-11] MEDS: LANOXIN PO (20:36)
[2024-02-11 21:01] LABS: Glucose - Point of Care 185 mg/dl (70-99)
[2024-02-11] MEDS: SENOKOT-S PO (21:15)
[2024-02-11] MEDS: OFIRMEV 100 IV (21:42)
[2024-02-11 22:06] LABS: Glucose - Point of Care 178 mg/dl (70-99)
[2024-02-11 22:28] LABS: Hematocrit 36.2 % (39.0-52.0); Hemoglobin 12.7 g/dL (13.0-18.0); Platelet Count 342 10^3/uL (130-400)
[2024-02-11 22:29] LABS: B.E. -1.5 mmol/L; HCO3 22.9 mmol/L (21-28); Ionized Calcium 1.27 mMOL/L (1.15-1.33); PCO2 37 mmHg (35-48); PO2 98 mmHg (83-108); Potassium 4.5 mMOL/L (3.5-5.1)
[2024-02-11 22:39] LABS: INR 1.36; PT 16.6 Sec (11.4-14.6)
[2024-02-11] MEDS: SODIUM BICARBONATE 50 MEQ IV (22:43)
[2024-02-11] MEDS: CALCIUM CHLORIDE 10% SYRINGE 500 MG IV (23:06)
[2024-02-11 23:11] LABS: Glucose - Point of Care 165 mg/dl (70-99)
[2024-02-11] MEDS: REGLAN 10 MG IV (23:29)
[2024-02-11 23:59] LABS: Glucose - Point of Care 171 mg/dl (70-99)
[2024-02-12] VITALS (28 sets, daily range): BP systolic 79–159; BP diastolic 52–128; O2SAT 95–97; BMI 31.6
[2024-02-12 00:02] LABS: B.E. 1.5 mmol/L; HCO3 25.9 mmol/L (21-28); Ionized Calcium 1.32 mMOL/L (1.15-1.33); O2 Saturation % 98.2 % (94-98); PCO2 39 mmHg (35-48); PO2 84 mmHg (83-108); Potassium 4.7 mMOL/L (3.5-5.1); pH 7.43 (7.35-7.45)
[2024-02-12 00:04] LABS: O2 Therapy CPAP
[2024-02-12 00:05] LABS: Hematocrit 35.2 % (39.0-52.0); Hemoglobin 12.4 g/dL (13.0-18.0); Mean Corp Hgb Conc. 35.2 g/dL (33.0-37.0); Mean Corpuscular Hgb 28.7 pg (27.0-31.0); Mean Corpuscular Volume 81.5 fL (80.0-94.0); Mean Platelet Volume 9.5 fL (7.4-10.4); Platelet Count 341 10^3/uL (130-400); Red Blood Cell Count 4.32 10^6/uL (4.70-6.10); Red Cell Dist. Width 14.1 % (11.5-14.5); White Blood Cell Count 27.1 10^3/uL (4.8-10.8)
--- NOTE | 2024-02-12 00:18 | RESPNOTE ---
pt extubated to 6 LPM NC without incident. + vocalization and - stridor
--- NOTE | 2024-02-12 00:30 | PTCARENOTE ---
pt extubated to 6 L NC at 0010. [address] drainage WNL. U/O >0.5ml/hr/kg.
[2024-02-12] MEDS: LEVOPHED 250 IV (00:42)
[2024-02-12] MEDS: LOW STRENGTH ASPIRIN PO (00:45)
[2024-02-12] MEDS: ANCEF 5 IV ×3 (00:45→16:19)
[2024-02-12] MEDS: VANCOCIN 200 IV ×2 (00:45→10:58)
[2024-02-12] MEDS: DILAUDID 0.25 MG IV ×4 (01:16→18:41)
[2024-02-12] MEDS: FLEXERIL 5 MG PO (01:50)
[2024-02-12] MEDS: CALCIUM CHLORIDE 10% SYRINGE 60 MG IV (01:50)
[2024-02-12] MEDS: LOW STRENGTH ASPIRIN 81 MG PO ×2 (01:50→08:08)
[2024-02-12 02:02] LABS: Glucose - Point of Care 196 mg/dl (70-99)
--- NOTE | 2024-02-12 03:04 | W.PN.CT ---
Today's Communication / Plan
-
Plan:
-No major issues overnight. Hemodynamically and neurologically intact
-Successfully extubated on 02/11 @ 0010
-Weaned off of Levophed gtt this AM @ 0500. Weaned dobutamine from 5 to 2 overnight, on insulin gtt per protocol
-Rhythm is sinus tachycardia (128 bpm) with PVC's
-Maintain impella, currently @ P-[address] Matias
-Last CI 2.24 on dobutamine @ 3, U/O since OR 760 mL
-Cont. current meds (ASA, Plavix, Lipitor; BB currently on hold)
-Monitor chest tube output: 2meds 540, R/L pls 180/180
-Maintain swan while on dobutamine
-Maintain robertson catheter
-A-line positional noted to be positional
-Telemetry phase once off insulin gtt per protocol
-Maintain cordis
-Maintain temporary PW (will pull before d/c home)
-Wean off of O2 as tolerated
-Encourage use of IS
-Encourage smoking cessation
-Repeat echo today per Dr. Matias
Assessment / Plan
-
Assessment:
S/P CABG x 5 (In situ WALKER to LAD, Ao to RSVG to ramus, Ao to RSVG to OM sequential to LPL, Ao to RSVG to RPDA)/Endoscopic vein harvesting of right lower extremity/Left atrial appendage exclusion, 35 mm clip/Left atrial surgical ablation, modified
maze procedure/ Insertion of a direct aortic ventricular assist device [5.5 Impella] via a 10 mm graft tunneled to the right supraclavicular position sewn directly to the distal ascending aorta, intraoperative management of VAD, by Dr. Matias,
02/11/24, pod#1
-Acute on chronic systolic heart failure
-ICM (EF 20-25% -> 35-40% -> intraop EF 10-15%)
-Cardiogenic shock (CI 1.3-1.5) S/P intraop Impella placement
-Acute respiratory failure secondary to pulmonary edema and volume overload
-Multivessel coronary artery disease involving the LAD and left main
-New onset atrial fibrillation with rapid ventricular response
-Moderate to severe ischemic mitral valve insufficiency, functional [type IIIb]
-Hyperlipidemia
-Hypertension
-Prediabetes (Hgb A1c of 6.0)
-Class I obesity (BMI 30.3)
-GERD
-Transaminitis
-History of tobacco abuse
-Mild to moderate emphysema
-Acute intraop/postop blood loss/Anemia (received 3 {5pk} plts and 1u PRBC)
-Acute postop atelectasis
-Acute postop hypovolemia with subsequent hypervolemia
-Acute postop hypotension requiring Levophed @ 12
Discussed patient care with: Cardiology, Nursing, Respiratory Therapy, Pharmacy and Care Team
Subjective
Procedure
CABG x 5 (In situ WALKER to LAD, Ao to RSVG to ramus, Ao to RSVG to OM sequential to LPL, Ao to RSVG to RPDA)/Endoscopic vein harvesting of right lower extremity/Left atrial appendage exclusion, 35 mm clip/Left atrial surgical ablation, modified maze
procedure/ Insertion of a direct aortic ventricular assist device [5.5 Impella] via a 10 mm graft tunneled to the right supraclavicular position sewn directly to the distal ascending aorta, intraoperative management of VAD, by Dr. Matias, 02/11/24
-
Date of Service: February 12, 2024
Pt c/o mild incisional pain and feeling thirsty, otherwise feels well
Objective Data
-
PT 16.6 Sec (11.4-14.6) H 02/11/24 22:20
INR 1.36 02/11/24 22:20
APTT 30.0 Sec (23.4-35.0) 02/11/24 19:29
Vital Signs
Vital Signs
Temp Pulse Resp BP Pulse Ox
98.1 F 122 18 98/73 96
02/12/24 01:59 02/12/24 02:00 02/12/24 02:00 02/12/24 02:00 02/12/24 02:00
CT Intake/Output/Weight
02/11/24 02/11/24 02/12/24
06:59 18:59 06:59
Intake Total 480 / 1663 67 / 1724.4 1657.4 / 1724.4
Output Total 900 / 2250 1070 / 1070
Balance -420 / -587 67 / 654.4 587.4 / 654.4
SaO2: 92 (5L)
Physical Exam
-
General: Awake, Oriented and AOx3
Cardiovascular: Regular rate & rhythm, No Murmurs, Rub and No Gallop
Respiratory: Decreased Breath Sounds
Sternum: Stable
Incision: Clean, Dry, Intact and Dressing Intact
Extremities: No Edema
Data Reviewed
-
Lab Results: Results Reviewed
Medications: Active Meds Reviewed
Chest X-Ray: Report Reviewed and Image Reviewed
ECG: Report Reviewed and Image Reviewed
[2024-02-12 03:10] LABS: Glucose - Point of Care 177 mg/dl (70-99)
[2024-02-12] MEDS: ROXICODONE 5 MG PO (03:12)
[2024-02-12 05:02] LABS: Glucose - Point of Care 141 mg/dl (70-99)
[2024-02-12 05:11] LABS: Hematocrit 35.9 % (39.0-52.0); Hemoglobin 12.4 g/dL (13.0-18.0); Ionized Calcium 1.31 mMOL/L (1.15-1.33); Mean Corp Hgb Conc. 34.5 g/dL (33.0-37.0); Mean Corpuscular Hgb 28.2 pg (27.0-31.0); Mean Corpuscular Volume 81.8 fL (80.0-94.0); Mean Platelet Volume 9.9 fL (7.4-10.4); Platelet Count 294 10^3/uL (130-400); Red Blood Cell Count 4.39 10^6/uL (4.70-6.10); Red Cell Dist. Width 14.4 % (11.5-14.5); White Blood Cell Count 21.2 10^3/uL (4.8-10.8)
[2024-02-12] MEDS: TYLENOL 1000 MG PO ×2 (05:22→20:53)
[2024-02-12 05:26] LABS: Lactic Acid 1.7 mmol/L (0.7-2.0)
[2024-02-12 05:28] LABS: ALT (SGPT) 53 U/L (0-50); AST (SGOT) 95 U/L (17-59); Albumin 3.2 g/dl (3.5-5.0); Alkaline Phosphatase 91 U/L (38-126); Blood Urea Nitrogen 30 mg/dl (9-20); Calcium 10.4 mg/dl (8.4-10.2); Carbon Dioxide 26 mmol/L (22-30); Chloride 106 mmol/L (98-107); Direct Bilirubin 0.7 mg/dl (0.0-0.4); Estimated Creatinine Clearance 106 ml/min; Fibrinogen 372 MG/DL (199-459); Glucose 142 mg/dl (70-99); INR 1.35; LDH 427 U/L (120-246); Magnesium 2.1 mg/dl (1.6-2.3); PT 16.5 Sec (11.4-14.6); Potassium 4.4 mmol/L (3.5-5.1); Sodium 139 mmol/L (135-145); Total Bilirubin 1.7 mg/dl (0.2-1.3); Total Protein 5.6 g/dl (6.3-8.2); eGFR > 60.00
[2024-02-12] MEDS: ALBUMIN 5% 250 IV (06:10)
[2024-02-12 06:16] LABS: Glucose - Point of Care 137 mg/dl (70-99)
--- NOTE | 2024-02-12 06:19 | W.PN.UPDATE ---
Update Note
Progress Note Update
Ventricular Assist Device Management [id number] / [id number]
Overnight events:
Had several suction events
PENSION FUND MANAGER 0.7-0.8
[place] 1.7-2.0
Flow P 5 - 3L/min
Labs reviewed, acceptable, no obvious significant hemolysis
CXR - device appears in similar position
SVT with PACs/PVCs
CVP 4, low filling pressures, LVEPD on device 4-6
Min flow 1.3
Extubated
CO/CI [place] 4.9/2.1
Exam:
Awake, neuro intact, asking for water
Moves all four extremities with equal strength
Some clot in chest drains
Plan:
- Drop to P4, continue to maintain DTX at 3 for now, currently off levo
- Give 250 albumin
- Continue abx ppx for exposed graft
- TTE to assess function, if able will wean DTX and switch to milrinone give the tachycardia
- q2-4 labs per protocol
- Optimize pain control meds
- Frequent stripping of drains
[2024-02-12 07:15] LABS: Glucose - Point of Care 128 mg/dl (70-99)
--- NOTE | 2024-02-12 08:00 | PTCARENOTE ---
resumed care of patient from previous RN. walking rounds completed. pt resting in bed at time of assessment. Impella 5.5 with R chest wall insertion site. c/d/i. P-4. temp epicardial A/V wires. plugged in but turned off. CTx4. mediastinal x2, R & L
pleural to -20cm wall suction, draining sanguineous drainage. Usual lines still remain present and patent. dobutamine and insulin gtts infusing. robertson catheter draining dark yellow urine. pulses palpable. +1 edema. tolerating clear liquid diet. PIV
x2 intact. see worklist for complete nursing assessment.
[2024-02-12] MEDS: SENOKOT-S 1 TABLET PO ×2 (08:08→20:53)
[2024-02-12] MEDS: PLAVIX 75 MG PO (08:08)
[2024-02-12] MEDS: MAGNESIUM OXIDE 500 MG PO ×2 (08:08→20:53)
[2024-02-12] MEDS: NEURONTIN 100 MG PO ×3 (08:08→20:53)
[2024-02-12] MEDS: PROTONIX 40 MG PO (08:08)
[2024-02-12] MEDS: PACERONE 200 MG PO (08:08)
[2024-02-12] MEDS: LIDOCAINE 4% PATCH 1 PATCH TOPICAL (08:09)
[2024-02-12] MEDS: BACTROBAN 2% OINTMENT 1 APPLIC NASAL ×2 (08:09→20:53)
[2024-02-12] MEDS: PRIMACOR 20 MG 100 IV (08:10)
[2024-02-12] MEDS: SKELAXIN 800 MG PO ×3 (08:12→20:53)
[2024-02-12 08:29] LABS: Glucose - Point of Care 115 mg/dl (70-99)
[2024-02-12] MEDS: NOVOLOG FLEXPEN 4 UNITS SC (08:35)
--- NOTE | 2024-02-12 08:35 | W.PN.ANS.POP ---
Anesthesia Post Operative
- Anesthesia Post Op Note
Vital Signs Stable-See Nursing Note: Yes
Airway Patent: Yes
Adequate Pain Control: Yes
Change in Mental Status: No
Current Postoperative Nausea & Vomiting: No
Anesthesia Complications: No
General Anesthetic Recall: No
Unplanned Admission: No
Post Op Hydration Adequate: Yes
--- NOTE | 2024-02-12 10:09 | W.PN.CD ---
Today's Communication / Plan
-
Continue milrinone.
Start metoprolol 5 mg q4-6 hours (standing) to allow for improved ventricular filling.
Weight up 4 kg but RA pressure is 4 mmHg, implying significant third spacing. Too early for diuresis and nursing reports Impella suction events.
Slow gtt titration.
Impression / Plan
-
Impression/Plan: 58M presented to [facility] with SOB, found to be in AF with RVR with new systolic cardiomyopathy (LVEF 20-25%) with moderate/severe MR prompting a [facility] revealing MVCAD. The patient was subsequently transferred for surgical
revascularization.
#NSTEMI/Coronary artery disease
-Acute.
-S/P CABG x5 (WALKER to LAD, SVG to RI, sequential SVG to OM to LPL, SVG to RPDA).
-Agree with exchanging dobutamine for milrinone to decrease HR.
-Start metoprolol 5 mg IV q4-6 hours to decrease HR (good BP) and allow for improved ventricular filling. Ok to uptitrate Impella if CO/CI fall off.
-Chest tube/pain management per CT surgery.
-High dose, high potency statin when taking PO.
-Continue amiodarone, aspirin, atorvastatin.
#HFrEF/ICM (EF 20-25%)
-Acute on chronic.
-Weight is up but RA pressure is 4 mmHg -- suggesting significant third spacing.
-GDMT on hold post op.
-Titrate milrinone/impella as indicated.
-Trend daily weight, I/O, tele, and BMP.
-Not ready for diuresis.
#Paroxysmal atrial fibrillation with rapid ventricular response
-Currently in AF.
-Rate/rhythm control with MAZE, amiodarone. Restarting metoprolol IV.
-Oral Anticoagulation: S/P LAAL at the time of surgery (#35 Atriclip). Heparin drip now; eventually apixaban 5 mg twice daily post-operatively.
-[id number]: Score at least 3 (Heart failure, HTN, Vascular disease).
#Dyslipidemia
-Chronic, stable.
-Total cholesterol = 136, LDL = 82, HDL = 39, Triglycerides = 75.
-Atorvastatin to 40 mg daily.
-Goal LDL < 55.
#Prediabetes, HgbA1c 6.0%, consider SGLT2
#Obesity, BMI 32, he would benefit from weight loss
#Former smoker, 2 PPD x 30 years, quit in 2021, continued cessation recommended
Critical Care Time = 40 minutes.
Subjective/Interval History:
The patient underwent complicated CABG x5 yesterday (WALKER to LAD, SVG to RI, sequential SVG to OM to LPL, SVG to RPDA) in the context of severe ischemic cardiomyopathy.
The patient had an Impella 5.5 inserted at the time of surgery.
MAZE and LAAL were also performed.
Patient was extubated early this morning.
Transfused one unit of PRBC's overnight.
Norepinephrine was weaned to off. Dobutamine changed to milrinone.
Impella was weaned to P3.
Weight is up 4.1 kg.
HR routinely > 120 bpm.
CI is 1.92 with an SVR of 1295.
DATA:
Transthoracic echocardiogram 02/03/2024:
LVEF 20-25%. Severe global hypokinesis. Moderate to severe mitral valve regurgitation. Mitral valve leaflets are tethered. Mildly elevated PASP, 31 mmHg.
Cardiac catheterization, 02/05/2024:
Severe multivessel coronary artery disease with left main involvement. Moderate to severely depressed LVEF with at least moderate mitral regurgitation. Mild to moderately elevated left and right pressures with no evidence of aortic stenosis. CI
2.33.
TTE, 02/10/2024:
CONCLUSIONS
-Left ventricular ejection fraction is approximately 35-40%. Global
hypokinesis. Wall motion is consistent with conduction abnormality.
-Normal right ventricular size and function.
-Moderately dilated left atrium.
-Mitral valve opens normally. Mild mitral regurgitation.
-Aortic sclerosis without stenosis.
-Trace tricuspid regurgitation. Estimated pulmonary artery pressure of 20-25
mmHg.
-Possible notable plaque seen in the aortic arch (image views 72-77).
Physical Exam
Vital Signs/Labs
Vital Signs
Temp Pulse Resp BP Pulse Ox
37.1 C 130 30 116/51 90
02/12/24 08:57 02/12/24 08:57 02/12/24 08:57 02/12/24 08:08 02/12/24 08:57
02/10/24 02/11/24 02/12/24
11:59 11:59 11:59
Actual Weight 99.1 kg 98.7 kg 102.8 kg
02/12/24 04:59
02/12/24 04:59
PT 16.5 Sec (11.4-14.6) H 02/12/24 04:59
INR 1.35 02/12/24 04:59
APTT 30.0 Sec (23.4-35.0) 02/11/24 19:29
Magnesium 2.1 mg/dl (1.6-2.3) 02/12/24 04:59
Triglycerides 75 mg/dl (10-149) 02/06/24 10:10
LDL Cholesterol, Calc 82 mg/dl 02/06/24 10:10
VLDL Cholesterol, Calc 15 mg/dl (0-30) 02/06/24 10:10
HDL Cholesterol 39 mg/dl 02/06/24 10:10
02/06/24
10:10
[id number] Pept 1390
Physical Exam
Constitutional: No acute distress and Comfortable
EENT: Anicteric and Moist mucous membranes
Cardiovascular: Rhythm & rate is regular, JVD pressure is normal, S1S2 is normal and Murmur/rub/gallop absent
Respiratory: Respiratory effort normal, Lungs clear to auscul., Wheeze Absent, Crackles Absent and Rhonchi Absent
GI: Soft, Distention absent, Flat, Non tender and Normal bowel sounds
Neuro/Psych: Other (Asleep, easily aroused.)
Data Reviewed
-
Date of Service: February 12, 2024
Medical Decision Making: Reviewed Test Results, Independent Historian Assessment, Test Interpretation and Review of Case with other Provider
EKG: Tracing Personally Visualized and interpreted and Report Reviewed by me
Echo: Report Reviewed by me
X-Ray/CT/US/MRI/NUC/PET: Image Personally Visualized and interpreted and Report Reviewed by me
Medical Tests (PFT, Pathology etc): Report Reviewed by me
Labs: Labs Reviewed by me
Old Records: Reviewed
[2024-02-12 10:29] LABS: Glucose - Point of Care 134 mg/dl (70-99)
--- NOTE | 2024-02-12 12:00 | PTCARENOTE ---
attempted to get patient oob and into chair. became light headed, dizzy and hypotensive. got back into bed. patient recovered well from incident.
[2024-02-12] MEDS: LOPRESSOR 5 MG IV ×3 (12:20→17:01)
[2024-02-12 12:27] LABS: Glucose - Point of Care 140 mg/dl (70-99)
[2024-02-12] MEDS: NOVOLIN R INSULIN INFUSION 100 IV (12:39)
[2024-02-12] MEDS: NOVOLOG FLEXPEN SC ×2 (12:40→17:02)
[2024-02-12] MEDS: FLEXBUMIN 50 IV ×2 (12:46→21:24)
--- NOTE | 2024-02-12 13:38 | CON.INTV ---
Consultation
Consultation Request
Date/Time Consultation Requested: 02/11/2024
Date/Time Consultation Performed: 02/12/2024
Requesting Provider: Dr. Matias
Performing Provider: Dr. Curt Vizcarra
Reason for Consultation: Postoperative ICU care status post coronary artery bypass
Medical History
-
History of Present Illness:
58-year-old male with history of hypertension, hyperlipidemia, GERD, obesity, prediabetes, former heavy smoker 2 packs/day for several decades, transferred from [facility] for coronary artery bypass evaluation.
He was found to have multivessel coronary artery disease with ejection fraction 20 to 25% and moderate to severe mitral regurgitation.
Initially treated medically.
Subsequently evaluated by CT surgery and considered team for surgical revascularization.
Past Medical History
Past Medical History: Other (See assessment and plan section)
Social History
Tobacco: Former Smoker
Alcohol: Occasional
Drug: None
Personal:
Living: With Family
Employment: Employed
Family History
Family History: Reviewed & Not Pertinent
Allergies / Home Medications
Allergies
Allergy/AdvReac Type Severity Reaction Status Date / Time
No Known Allergies Allergy Unverified 02/06/24 10:36
Home Medications
�Medication �Instructions �Recorded �Confirmed �Last Taken �Type
atorvastatin 20 mg tablet (Lipitor) 20 mg PO DAILY 02/06/24 02/06/24 Unknown History
omeprazole magnesium 20 mg 20 mg PO DAILY 02/06/24 02/06/24 Unknown History
tablet,delayed release (Prilosec
OTC)
Review of Systems
-
History Source: Patient
All other systems: Negative unless noted
Vitals / Labs / Diagnostic Testing
Vital Signs
Temp Pulse Resp BP Pulse Ox
98.5 F 118 29 111/62 92
02/12/24 12:00 02/12/24 12:47 02/12/24 12:30 02/12/24 12:47 02/12/24 12:30
Lab Data
02/12/24 04:59
02/12/24 04:59
Laboratory Results
02/11/24 02/11/24 02/11/24
19:29 22:20 23:57
PT 17.6 H 16.6 H
INR 1.46 1.36
APTT 30.0
pH 7.30 L 7.40 7.43
pCO2 51 H 37 39
pO2 125 H 98 84
HCO3 25.1 22.9 25.9
O2 Delivery Level Cpap
02/12/24
04:59
PT 16.5 H
INR 1.35
APTT
pH
pCO2
pO2
HCO3
O2 Delivery Level
Diagnostic Testing:
Physical Exam
-
HEENT: Normocephalic
Cardiovascular: S1/S2
Respiratory: Other (Mild discomfort due to pain. Laying flat in bed) and Other ( chest tube in place without air leak or excessive drainage.)
GI: Soft and Distended (Obese)
Neurology: Awake, Alert, Oriented and AO x 3
Skin: Warm
General: Respiratory Distress (n)
Assessment
-
Status post coronary artery bypass grafting x5- 02/11/2024 Dr. Matias
Status post ventricular assist device/Impella
Cardiogenic shock
postoperative mechanical ventilation
Postoperative anemia
Paroxysmal atrial fibrillation with rapid ventricular response
Conditions present prior admission:
Ischemic cardiomyopathy ejection fraction 20-25%.
GERD
Hypertension
Hyper cholesterolemia
Obesity
Prediabetes
Former smoker [id number] history quit in [address] chest with mild changes consistent with emphysema 02/07/2024.
Spirometry without airflow obstruction. Suggestion of restriction.02/08/2024
Plan and recommendations:
Extubated on low rate supplemental oxygen.
Complaining of incisional discomfort.
Postoperative day 1.
Remains on milrinone, to be titrated based on hemodynamics per cardiology and primary team.
Impella device in place, this is being weaned down.
Follow renal function, urinary output trend
Daily weights
Monitor hemodynamics via PA catheter closely.
Cardiology correspondence reviewed-amiodarone started.
Restarting IV metoprolol as well
Heparin drip for now eventually to oral anticoagulants.
Anemia noted-no evidence of acute bleeding
Follow H&H serially
Chest tube with no excessive drainage-no air leak.
Chest x-ray reviewed: With no pneumothorax or fluid collections. Mild pulmonary vascular congestion. Bibasilar atelectasis.
Advance diet as tolerated
Head of the bed elevation
Eventual sleep apnea evaluation
Glycemic control per protocol
DVT prophylaxis when safe from the surgical perspective.
Critical care statement: A total of 31 minutes of critical care time was provided for this patient today. This includes management of unstable vital signs, evaluation of the patient at bedside, reviewing the patient's pertinent medical records
including ventilator settings, arterial blood gases, radiographs, microbiology, laboratory evaluations and discussion with primary team, critical care nursing, and respiratory therapy.
Data:
Transthoracic echocardiogram 02/03/2024:
LVEF 20-25%. Severe global hypokinesis. Moderate to severe mitral valve regurgitation. Mitral valve leaflets are tethered. Mildly elevated PASP, 31 mmHg.
Cardiac catheterization, 02/05/2024:
Severe multivessel coronary artery disease with left main involvement. Moderate to severely depressed LVEF with at least moderate mitral regurgitation. Mild to moderately elevated left and right pressures with no evidence of aortic stenosis. CI
2.33.
[2024-02-12] MEDS: CORDARONE 103 MG IV (14:08)
[2024-02-12] MEDS: TYLENOL PO (14:08)
--- NOTE | 2024-02-12 14:22 | PTCARENOTE ---
urine became blood tinged. HAULAGE ENGINE OPERATOR made aware. labs drawn and sent as ordered.
[2024-02-12 14:23] LABS: Glucose - Point of Care 120 mg/dl (70-99)
[2024-02-12] MEDS: CORDARONE 518 MG IV (14:31)
[2024-02-12 14:43] LABS: ACT-LR - POC 126 Seconds (116-155)
[2024-02-12 15:12] LABS: LDH 351 U/L (120-246)
[2024-02-12 15:19] LABS: Hematocrit 29.3 % (39.0-52.0); Hemoglobin 10.4 g/dL (13.0-18.0); Mean Corp Hgb Conc. 35.5 g/dL (33.0-37.0); Mean Corpuscular Hgb 29.2 pg (27.0-31.0); Mean Corpuscular Volume 82.3 fL (80.0-94.0); Mean Platelet Volume 10.1 fL (7.4-10.4); Platelet Count 269 10^3/uL (130-400); Red Blood Cell Count 3.56 10^6/uL (4.70-6.10); Red Cell Dist. Width 14.6 % (11.5-14.5); White Blood Cell Count 23.3 10^3/uL (4.8-10.8)
[2024-02-12 15:28] LABS: APTT 30.6 Sec (23.4-35.0)
[2024-02-12 16:23] LABS: Glucose - Point of Care 95 mg/dl (70-99)
[2024-02-12] MEDS: NSS IV (16:23)
[2024-02-12] MEDS: LIPITOR 40 MG PO (17:02)
[2024-02-12 18:35] LABS: Glucose - Point of Care 126 mg/dl (70-99)
[2024-02-12] MEDS: LASIX 20 MG IV (18:47)
--- NOTE | 2024-02-12 20:00 | PTCARENOTE ---
assumed care of pt from previous RN. pt oriented x4, drowsy, easily arousable. R IJ cordis w/ [place] floated to 52 cm. amio, milrinone, and heparin infusing. see flowsheet for details. L radial a-line. all lines leveled, zeroed, flushed. Impella 5.5
w/ direct aortic insertion at P-3. sinus tach w/ PACs on tele-monitor, HR 110s. temp epicardial A/V wires, plugged in, pulse generator off. palpable peripheral pulses. +1 LE edema noted. CTx4 (mediastinal x2, R & L pleural) to -20cm wall suction,
draining sanguineous drainage. pt on 6 L NC, POX 88%. IS encouraged, teaching reinforced. pt tolerating clear liquids. abd s/n, +BS. robertson catheter draining yellow urine w/ sediment noted. sternal incision approximated w/ surgi-glue, GOLF COURSE DESIGNER. R leg
incision and groin puncture stable, BRUCE. PIV x2 intact. see worklist for complete nursing assessment, interventions, VS, and I&Os.
[2024-02-12] MEDS: XOPENEX 1.25 MG INHALANT SOLUTION INH (22:10)
[2024-02-12 22:11] LABS: Glucose - Point of Care 142 mg/dl (70-99)
[2024-02-12 22:28] LABS: APTT 45.1 Sec (23.4-35.0)
[2024-02-12] MEDS: MUCINEX 1200 MG PO (23:12)
[2024-02-13] VITALS (33 sets, daily range): BP systolic 81–143; BP diastolic 46–97; PULSE 2–110; BMI 32.5
--- NOTE | 2024-02-13 | PTCARENOTE ---
assessment remains unchanged. pt placed on midflow by RT at 2230 for low SaO2 sats. pt currently on 13L midflow nasal cannula, POX 90-91%. sinus tach w/ PACs on tele-monitor. HR 110s. see worklist for complete VS, I&Os, and interventions.
[2024-02-13] MEDS: ROXICODONE 5 MG PO ×2 (02:06→16:59)
[2024-02-13] MEDS: SODIUM BICARBONATE 1025 MEQ INF CATH (02:54)
--- NOTE | 2024-02-13 04:00 | PTCARENOTE ---
assessment remains unchanged. sinus tach w/ PACs on tele-monitor. HR 110-115s. POX 88-91% on 9 L midflow NC. AM labs collected and sent. CT drainage WNL.
[2024-02-13] MEDS: FLEXBUMIN 50 IV ×3 (04:13→22:31)
[2024-02-13 04:25] LABS: Hematocrit 24.6 % (39.0-52.0); Hemoglobin 8.8 g/dL (13.0-18.0); Mean Corp Hgb Conc. 35.8 g/dL (33.0-37.0); Mean Corpuscular Volume 81.2 fL (80.0-94.0); Mean Platelet Volume 10.1 fL (7.4-10.4); Platelet Count 234 10^3/uL (130-400); Red Blood Cell Count 3.03 10^6/uL (4.70-6.10); Red Cell Dist. Width 14.7 % (11.5-14.5); White Blood Cell Count 23.5 10^3/uL (4.8-10.8)
--- NOTE | 2024-02-13 04:30 | W.PN.CT ---
Today's Communication / Plan
-
Plan:
-No major issues overnight. Hemodynamically and neurologically intact
-Currently on Milrinone @ 0.125, Amiodarone @ 0.5, Heparin @ 500 units/hr
-Impella is @ P-3. Last CI 3.3
-Weaned off drips as tolerated
-Rhythm is currently sinus tachycardia (114) with PAC's
-H/h 8.8/24.6, likely hemodilutional
-Na+ 132, was 139 yesterday, likely d/t hypervolemia. Received 25% Albumin overnight
-Has NEERU this AM with cr 1.5, was 0.9 yesterday
-CXR and proBNP consistent with CHF/pulmonary edema, currently on 9L of midflow O2, sats 92%. Will benefit from diuresis today
-Cont. current meds (ASA, Plavix, Lipitor; BB currently on hold)
-Monitor chest tube output: 2meds 210/450, R/L pls 35/160, consider d/c of pleural chest tubes
-Maintain robertson catheter for I/O's
-Maintain a-line
-Maintain cordis
-Maintain temporary PW (will pull before d/c home)
-Wean off of O2 as tolerated
-Encourage use of IS
-Encourage smoking cessation
-OOB into chair
Assessment / Plan
-
Assessment:
S/P CABG x 5 (In situ WALKER to LAD, Ao to RSVG to ramus, Ao to RSVG to OM sequential to LPL, Ao to RSVG to RPDA)/Endoscopic vein harvesting of right lower extremity/Left atrial appendage exclusion, 35 mm clip/Left atrial surgical ablation, modified
maze procedure/ Insertion of a direct aortic ventricular assist device [5.5 Impella] via a 10 mm graft tunneled to the right supraclavicular position sewn directly to the distal ascending aorta, intraoperative management of VAD, by Dr. Matias,
02/11/24, pod#2
-Acute on chronic systolic heart failure
-ICM (EF 20-25% -> 35-40% -> intraop EF 10-15%)
-Cardiogenic shock (CI 1.3-1.5) S/P intraop Impella placement
-Acute respiratory failure secondary to pulmonary edema and volume overload
-Multivessel coronary artery disease involving the LAD and left main
-New onset atrial fibrillation with rapid ventricular response
-Moderate to severe ischemic mitral valve insufficiency, functional [type IIIb]
-Hyperlipidemia
-Hypertension
-Prediabetes (Hgb A1c of 6.0)
-Class I obesity (BMI 30.3)
-GERD
-Transaminitis
-History of tobacco abuse
-Mild to moderate emphysema
-Acute intraop/postop blood loss/Anemia (received 3 {5pk} plts and 1u PRBC)
-Acute postop atelectasis
-Acute postop hypovolemia with subsequent hypervolemia
-Acute postop hypotension requiring Levophed @ 12
-Acute postop sinus tachycardia with PVC's/PAC's
-Acute postop a-fib with rapid ventricular rate
-Acute postop NEERU
Discussed patient care with: Cardiology, Nursing, Respiratory Therapy, Pharmacy and Care Team
Subjective
Procedure
CABG x 5 (In situ WALKER to LAD, Ao to RSVG to ramus, Ao to RSVG to OM sequential to LPL, Ao to RSVG to RPDA)/Endoscopic vein harvesting of right lower extremity/Left atrial appendage exclusion, 35 mm clip/Left atrial surgical ablation, modified maze
procedure/ Insertion of a direct aortic ventricular assist device [5.5 Impella] via a 10 mm graft tunneled to the right supraclavicular position sewn directly to the distal ascending aorta, intraoperative management of VAD, by Dr. Matias, 02/11/24
-
Date of Service: February 13, 2024
Pt c/o incisional pain, otherwise feels well
Objective Data
-
Lab Results
02/13/24 04:18
PT 16.5 Sec (11.4-14.6) H 02/12/24 04:59
INR 1.35 02/12/24 04:59
APTT 45.1 Sec (23.4-35.0) H 02/12/24 22:08
Vital Signs
Vital Signs
Temp Pulse Resp BP Pulse Ox
98.5 F 117 23 125/71 91
02/13/24 04:00 02/13/24 04:15 02/13/24 04:15 02/13/24 04:00 02/13/24 04:15
CT Intake/Output/Weight
02/12/24 02/12/24 02/13/24
06:59 18:59 06:59
Intake Total 1964.7 / 2061.6 1104.8 / 1654.0 549.2 / 1654.0
Output Total 1505 / 1565 620 / 1300 680 / 1300
Balance 459.7 / 496.6 484.8 / 354.0 -130.8 / 354.0
SaO2: 92 (9L mid-flow O2)
Physical Exam
-
General: Awake, Oriented and AOx3
Cardiovascular: Irregular rate & rhythm, No Murmurs, No Rub and No Gallop
Respiratory: Decreased Breath Sounds
Sternum: Stable
Incision: Clean, Dry, Intact and Dressing Intact
Extremities: Other (+trace edema)
Data Reviewed
-
Lab Results: Results Reviewed
Medications: Active Meds Reviewed
Chest X-Ray: Report Reviewed and Image Reviewed
ECG: Report Reviewed and Image Reviewed
[2024-02-13 04:37] LABS: APTT 43.8 Sec (23.4-35.0)
[2024-02-13] MEDS: TYLENOL 1000 MG PO ×3 (05:04→20:27)
[2024-02-13 05:11] LABS: Lactic Acid 1.9 mmol/L (0.7-2.0)
[2024-02-13 05:13] LABS: ALT (SGPT) 26 U/L (0-50); AST (SGOT) 52 U/L (17-59); Albumin 3.1 g/dl (3.5-5.0); Alkaline Phosphatase 76 U/L (38-126); Blood Urea Nitrogen 41 mg/dl (9-20); Calcium 8.9 mg/dl (8.4-10.2); Carbon Dioxide 24 mmol/L (22-30); Chloride 97 mmol/L (98-107); Direct Bilirubin 0.7 mg/dl (0.0-0.4); Estimated Creatinine Clearance 65 ml/min; Glucose 159 mg/dl (70-99); LDH 291 U/L (120-246); Magnesium 1.9 mg/dl (1.6-2.3); Potassium 4.5 mmol/L (3.5-5.1); Sodium 132 mmol/L (135-145); Total Bilirubin 1.5 mg/dl (0.2-1.3); Total Protein 5.3 g/dl (6.3-8.2)
[2024-02-13 05:21] LABS: NT-proBNP 1140 pg/ml
[2024-02-13] MEDS: PRIMACOR 20 MG 100 IV (05:37)
[2024-02-13] MEDS: LASIX 40 MG IV (08:07)
[2024-02-13] MEDS: NEURONTIN 100 MG PO ×3 (08:07→20:28)
[2024-02-13] MEDS: LOW STRENGTH ASPIRIN 81 MG PO (08:07)
[2024-02-13] MEDS: MAGNESIUM OXIDE 500 MG PO ×2 (08:08→20:28)
[2024-02-13] MEDS: SKELAXIN 800 MG PO ×3 (08:08→20:28)
[2024-02-13] MEDS: PROTONIX 40 MG PO (08:08)
[2024-02-13] MEDS: LIDOCAINE 4% PATCH 1 PATCH TOPICAL (08:08)
[2024-02-13] MEDS: MUCINEX 1200 MG PO ×2 (08:08→20:28)
[2024-02-13] MEDS: SENOKOT-S 1 TABLET PO ×2 (08:08→20:28)
[2024-02-13] MEDS: BACTROBAN 2% OINTMENT 1 APPLIC NASAL ×2 (08:09→20:27)
--- NOTE | 2024-02-13 08:15 | PTCARENOTE ---
Assumed care of patient at 0700. Pt is awake, alert, and oriented. Pt with complaints of sternal pain, scheduled pain medications administered. Pt remains ST with PACs, HR 115. BP 117/53 MAP 71. PA pressure 25/7, CVP 6, CO 7.49, CI 3.42, SVR 705.
Impella 5.[address] via right axillary artery at 32cm set to P3, placement signal 106/48, motor current 195/129, flow 1.9 L/min, purge pressure 486, purge infusion rate 12.2. Impella anchored to patient. Pulses palpable. Epicardial AV wire in
place, currently off. Remains on 8L midflow, pulse oximetry 90%. Chest tubes x4 (mediastinal x2 and left/right pleural) in place, no air leaks or crepitus, drainage serosanguineous in color. Pt achieving 750 with IS, continued use encouraged. Pt
tolerating PO medications. Vega catheter in place, draining yellow urine. Midsternal incision approximated and ALTERATION TAILOR APPRENTICE, Right groin puncture and right leg incision approximated and ALTERATION TAILOR APPRENTICE. Right IJ cordis in place, Fidelity-sydney catheter at 52cm. Left radial
Protem intact. Pt remains on heparin gtt at 500units/hr, Milrinone at 0.125mcg/kg/min, Amio at 0.5mg/min. Pt currently resting in bed with call higuera within reach.
[2024-02-13 08:32] LABS: Glucose - Point of Care 193 mg/dl (70-99)
[2024-02-13] MEDS: NOVOLOG FLEXPEN-MODERATE RESISTANCE SC ×3 (08:36→17:05)
--- NOTE | 2024-02-13 09:17 | W.PN.UPDATE ---
Update Note
Progress Note Update
Ventricular Assist Device Management
I discussed sAhwin Talavera's situation with his , he has made significant progress over the last 24 hours. His [place] cardiac output has increased and CI is now well over 3 with the minimal support. He is on minimal inotropic support as well.
No suction events overnight, filling pressures are appropriate. Lactate remains <2, creatinine slight up, however this is likely delayed from surgery. LFTs ok.
Plan:
1. Drop to P2
2. Transfuse PRBCs mainframe consultant to OR
3. Stop Hep gtt mainframe consultant to OR
4. Will plan to remove Impella in OR and monitor function/hemodynamics
5. Verbal consent obtained from Mago Talavera over the phone
--- NOTE | 2024-02-13 09:30 | PTCARENOTE ---
Right and left pleural chest tubes d/c'd per order. Repeat type and screen collected.
[2024-02-13] MEDS: ANCEF 10 IV ×2 (10:02)
--- NOTE | 2024-02-13 10:21 | W.PN.CD ---
Today's Communication / Plan
-
D/C furosemide.
Start bumetanide gtt at 1 mg/hour.
S/P Surgical removal of Impella 5.5.
Maintain milrinone.
Monitor CO/CI.
Impression / Plan
-
Impression/Plan: 58M presented to [facility] with SOB, found to be in AF with RVR with new systolic cardiomyopathy (LVEF 20-25%) with moderate/severe MR prompting a C revealing MVCAD. The patient was subsequently transferred for surgical
revascularization.
#NSTEMI/Coronary artery disease
-Acute.
-S/P CABG x5 (WAKLER to LAD, SVG to RI, sequential SVG to OM to LPL, SVG to RPDA).
-Agree with exchanging dobutamine for milrinone to decrease HR.
-Continue metoprolol 5 mg IV q4-6 hours to decrease HR (good BP) and allow for improved ventricular filling.
-Chest tube/pain management per CT surgery.
-High dose, high potency statin.
-Continue amiodarone, aspirin, atorvastatin.
#HFrEF/ICM (EF 20-25%)
-Acute on chronic.
-GDMT on hold post op.
-Trend daily weight, I/O, tele, and BMP.
-Improvement in CI/RA pressure on minimal Impella settings supports the theory that his third spacing is resolving.
-Furosemide given with lackluster results.
-Start bumetanide gtt at 1 mg/hour and monitor hemodynamics.
-Labs reviewed - H/H falling and Cr up, but the balance of data suggests cardiorenal syndrome/hemodilution rather than hemolysis.
-Impella surgically removed.
-Maintain milrinone at current dose and continue to trend CO/CI.
#Paroxysmal atrial fibrillation with rapid ventricular response
-Currently in AF.
-Rate/rhythm control with MAZE, amiodarone, metoprolol IV.
-Oral Anticoagulation: S/P LAAL at the time of surgery (#35 Atriclip). Heparin drip now; eventually apixaban 5 mg twice daily post-operatively.
-[id number]: Score at least 3 (Heart failure, HTN, Vascular disease).
#Dyslipidemia
-Chronic, stable.
-Total cholesterol = 136, LDL = 82, HDL = 39, Triglycerides = 75.
-Atorvastatin to 40 mg daily.
-Goal LDL < 55.
#Prediabetes, HgbA1c 6.0%, consider SGLT2
#Obesity, BMI 32, he would benefit from weight loss
#Former smoker, 2 PPD x 30 years, quit in 2021, continued cessation recommended
Critical Care Time = 38 minutes.
Subjective/Interval History:
Remains on higher levels of oxygen support (88-91% on 9L Midflow).
Weight is up 2.8 kg from yesterday, 6.9 kg from 02/11/2024.
Pulse has improved with the addition of metoprolol.
MAP is consistently > 75 mmHg.
CI is 2.8-3.4.
PA = 30/16.
RA = 11.
He received furosemide 20 mg IV on 02/12/2024 @ 18:47, then 40 mg IV this morning @ 8:07.
Hbg down to 8.8 from 10.4 from 12.4.
Haptoglobin pending.
Creatinine up to 1.5 (form 0.9).
Na down to 132.
Total bilirubin 1.5 (down from 1.7).
LDH falling (427 --> 351 --> 291).
DATA:
Transthoracic echocardiogram 02/03/2024:
LVEF 20-25%. Severe global hypokinesis. Moderate to severe mitral valve regurgitation. Mitral valve leaflets are tethered. Mildly elevated PASP, 31 mmHg.
Cardiac catheterization, 02/05/2024:
Severe multivessel coronary artery disease with left main involvement. Moderate to severely depressed LVEF with at least moderate mitral regurgitation. Mild to moderately elevated left and right pressures with no evidence of aortic stenosis. CI
2.33.
TTE, 02/10/2024:
CONCLUSIONS
-Left ventricular ejection fraction is approximately 35-40%. Global
hypokinesis. Wall motion is consistent with conduction abnormality.
-Normal right ventricular size and function.
-Moderately dilated left atrium.
-Mitral valve opens normally. Mild mitral regurgitation.
-Aortic sclerosis without stenosis.
-Trace tricuspid regurgitation. Estimated pulmonary artery pressure of 20-25
mmHg.
-Possible notable plaque seen in the aortic arch (image views 72-77).
Physical Exam
Vital Signs/Labs
Vital Signs
Temp Pulse Resp BP Pulse Ox
36.9 C 115 25 118/67 90
02/13/24 09:00 02/13/24 09:15 02/13/24 09:15 02/13/24 09:00 02/13/24 09:15
02/11/24 02/12/24 02/13/24
11:59 11:59 11:59
Actual Weight 98.7 kg 102.8 kg 105.6 kg
02/13/24 04:18
02/13/24 04:18
PT 16.5 Sec (11.4-14.6) H 02/12/24 04:59
INR 1.35 02/12/24 04:59
APTT 43.8 Sec (23.4-35.0) H 02/13/24 04:18
Magnesium 1.9 mg/dl (1.6-2.3) 02/13/24 04:18
Triglycerides 75 mg/dl (10-149) 02/06/24 10:10
LDL Cholesterol, Calc 82 mg/dl 02/06/24 10:10
VLDL Cholesterol, Calc 15 mg/dl (0-30) 02/06/24 10:10
HDL Cholesterol 39 mg/dl 02/06/24 10:10
02/06/24 02/13/24
10:10 04:18
[id number] Pept 1390 1140
Physical Exam
Constitutional: No acute distress and Comfortable
EENT: Anicteric and Moist mucous membranes
Cardiovascular: Rhythm & rate is regular, Pedal edema present, JVD present and Other (Impella hum noted.)
Respiratory: Respiratory effort normal, Wheeze Absent, Rhonchi Absent and Crackles Present
GI: Soft, Distention absent, Flat, Non tender and Normal bowel sounds
Neuro/Psych: AO x 3
Data Reviewed
-
Date of Service: February 13, 2024
Medical Decision Making: Reviewed Test Results, Independent Historian Assessment, Test Interpretation and Review of Case with other Provider
EKG: Tracing Personally Visualized and interpreted and Report Reviewed by me
Echo: Report Reviewed by me
X-Ray/CT/US/MRI/NUC/PET: Image Personally Visualized and interpreted and Report Reviewed by me
Medical Tests (PFT, Pathology etc): Image Personally Visualized and interpreted and Report Reviewed by me
Labs: Labs Reviewed by me
--- NOTE | 2024-02-13 10:30 | W.CVOR.SURPR ---
CVOR Surgeon Immed Pre Op
-
I have examined this patient prior to performance of the scheduled procedure.
The patient's condition is unchanged from the time of the dictated/written History and
Physical and the patient is able to undergo the scheduled procedure.
--- NOTE | 2024-02-13 10:30 | W.IMMPOSTOP ---
Addendum entered and electronically signed by Jori Hyman MD 02/13/24 10:59:
[id number]
Original Note:
Surgical Immed Post Op Note
-
CARDIAC SURGERY OPERATIVE NOTE:
Preoperative Dx:
POD#2 S/P CABG x 5 w/ intraoperative placement of centrally-placed Impella 5.5 VAD
Postoperative Dx:
Same
Procedures:
1) Echocardiographic wean of Impella 5.5
2) Explant of Impella 5.5 w/ control of 10mm Hemashield graft
Surgeon:
Jori Hyman M.D.
[employer]:
Hnanah Rg P.A.-C.
Anesthesia:
Ian Wills M.D.; Savita Cain C.R.N.A.; MAC & 10cc 0.25% Bupivacaine
Findings:
Improved LVEF that remained stable after withdrawal of Impella
No significant AI
Complications:
None
Transfusions:
2U PRBC
Condition:
112 sinus w/ PACs; 136/62. 39/20. CVP 16. 96%
GTTS: amio 0.5, milrinone 0.125
Stable/guarded to CVICU
--- NOTE | 2024-02-13 11:24 | PTCARENOTE ---
Pt returned back to CVICU into room 2263 at 1050. Impella removed. Impella insertion site at right axillary artery now approximated with surgical adhesive in place. Heparin gtt off on arrival to CVICU. Remains on Amio gtt 0.5mg/min and Milrinone
0.125mcg/kg/min. Awaiting Bumex gtt from Pharmacy. Pt remains ST with HR 114. Cuff BP 134/79 MAP 92. Nazlini BP 164/[address] BOWLING ALLEY MANAGER aware. PA pressure 36/20, CVP 13, CO 5.97, CI 2.73, SVR 1098. Pulse oximetry 92% on 15L midflow with nonrebreather.
--- NOTE | 2024-02-13 11:38 | W.PN.INTV ---
Today's Communication / Plan
Recommendations
Wean off milrinone as able
Impella device has been explanted
Encourage incentive spirometry
Eventual diuresis
Wean down oxygen
Analgesia
Follow chest tube output
Daily chest x-ray
Assessment
-
Status post coronary artery bypass grafting x5- 02/11/2024 Dr. Matias
Status post ventricular assist device/Impella
Cardiogenic shock
postoperative mechanical ventilation
Postoperative anemia
Paroxysmal atrial fibrillation with rapid ventricular response-improved
Acute kidney injury
Conditions present prior admission:
Ischemic cardiomyopathy ejection fraction 20-25%.
GERD
Hypertension
Hyper cholesterolemia
Obesity
Prediabetes
Former smoker [id number] history quit in [address] chest with mild changes consistent with emphysema 02/07/2024.
Spirometry without airflow obstruction. Suggestion of restriction.02/08/2024
Plan and recommendations:
Postoperative day 2
Hemodynamically improved. Minimal inotrope support.
On supplemental oxygen
Chest x-ray consistent with pulmonary vascular congestion
Diuresis at some point today
Remains on low-dose milrinone. Wean off as able.
Daily weights
Follow renal function and urinary output.
Acute kidney injury: Continue hemodynamic support per
Monitor hemodynamics via PA catheter closely.
Cardiology correspondence reviewed-on amiodarone.
Continue beta-ish
Heparin drip for now eventually to oral anticoagulants. Follow PTT
Anemia noted-no evidence of acute bleeding
Follow H&H serially
Chest tube with no excessive drainage-no air leak.
Chest x-ray reviewed 02/13/2024: With no pneumothorax or fluid collections. Mild pulmonary vascular congestion. Bibasilar atelectasis.
Advance diet as tolerated
Head of the bed elevation
Eventual sleep apnea evaluation
Glycemic control per protocol
DVT prophylaxis when safe from the surgical perspective.
Critical care statement: A total of 31 minutes of critical care time was provided for this patient today. This includes management of unstable vital signs, evaluation of the patient at bedside, reviewing the patient's pertinent medical records
including ventilator settings, arterial blood gases, radiographs, microbiology, laboratory evaluations and discussion with primary team, critical care nursing, and respiratory therapy.
Data:
Transthoracic echocardiogram 02/03/2024:
LVEF 20-25%. Severe global hypokinesis. Moderate to severe mitral valve regurgitation. Mitral valve leaflets are tethered. Mildly elevated PASP, 31 mmHg.
Cardiac catheterization, 02/05/2024:
Severe multivessel coronary artery disease with left main involvement. Moderate to severely depressed LVEF with at least moderate mitral regurgitation. Mild to moderately elevated left and right pressures with no evidence of aortic stenosis. CI
2.33.
Subjective Dataa
Subjective Data
Date of Service:
Date of Service: February 13, 2024
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
Subjective:
Improved from yesterday, better hemodynamics
Impella device has been explanted
Continues to report some pain discomfort
Has been on bedrest.
Review of Systems
GI: Abdominal Pain (n), Nausea (n) and Vomiting (n)
Neuro: Headache (n)
Objective Data
Data Reviewed
Vital Signs / I&O / Oxygen:
Vital Signs
Temp Pulse Resp BP Pulse Ox
98.5 F 110 24 118/67 90
02/13/24 11:00 02/13/24 11:00 02/13/24 11:00 02/13/24 09:00 02/13/24 11:00
Intake and Output
02/12/24 02/13/24 02/14/24
06:59 06:59 06:59
Intake Total 2031.7 / 2061.6 1775.2 / 1850.8 267.4 / 267.4
Output Total 1505 / 1565 1445 / 1540 545 / 545
Balance 526.7 / 496.6 330.2 / 310.8 -277.6 / -277.6
SaO2 [CPAP/PSV] 95
SaO2 [SIMV] 99
SaO2 90
Nasal Cannula flow liters per 8
minute
Physical Exam
General: Respiratory Distress (n) and Comfortable
HEENT: Normocephalic
Cardiovascular: S1-S2
Respiratory: Clear and Non-Labored Respirations
GI: Distended (obese)
Neurology: Awake, Alert and No Motor Deficits
Skin: Warm
Labs/Micro/Reports
Lab Data
02/13/24 04:18
02/13/24 04:18
Laboratory Results
02/12/24 02/12/24 02/12/24
15:05 18:00 22:08
APTT 30.6 Cancelled 45.1 H
02/13/24
04:18
APTT 43.8 H
[2024-02-13] MEDS: BUMEX 50 IV ×2 (11:52→21:25)
[2024-02-13 12:34] LABS: B.E. 3.4 mmol/L; HCO3 26.5 mmol/L (21-28); Ionized Calcium 1.13 mMOL/L (1.15-1.33); O2 Saturation % 95.8 % (94-98); PCO2 34 mmHg (35-48); PO2 69 mmHg (83-108); Potassium 4.2 mMOL/L (3.5-5.1); Sodium 129 mMOL/L (136-145)
[2024-02-13] MEDS: DILAUDID 0.5 MG IV (12:50)
[2024-02-13 13:03] LABS: Glucose - Point of Care 187 mg/dl (70-99)
--- NOTE | 2024-02-13 13:09 | PTCARENOTE ---
Pulse oximetry 86-90% with 15L midflow and nonrebreather. Portable x-ray obtained. ABG collected. Pt switch to BiPAP 16/7 15L, pulse oximetry 96%. Bumex gtt initiated at 1150 at 0.5mg/hr. Pt appears more comfortable.
[2024-02-13] MEDS: LOPRESSOR 25 MG PO ×2 (13:57→20:27)
[2024-02-13 14:03] LABS: B.E. 2.8 mmol/L; HCO3 27.2 mmol/L (21-28); O2 Saturation % 98.7 % (94-98); PCO2 40 mmHg (35-48); PO2 92 mmHg (83-108); pH 7.44 (7.35-7.45)
[2024-02-13 16:48] LABS: B.E. 3.8 mmol/L; HCO3 27.7 mmol/L (21-28); O2 Saturation % 98.9 % (94-98); PCO2 38 mmHg (35-48); PO2 102 mmHg (83-108); Potassium 4.3 mMOL/L (3.5-5.1); pH 7.47 (7.35-7.45)
[2024-02-13 16:51] LABS: Mixed Venous O2 Saturation 57.3 %
[2024-02-13] MEDS: CALCIUM CHLORIDE 10% SYRINGE 50 MG IV (16:54)
[2024-02-13] MEDS: CALCIUM CHLORIDE 10% SYRINGE 50 ML IV (16:54)
[2024-02-13] MEDS: NSS 500 IV (16:55)
[2024-02-13] MEDS: PACERONE 200 MG PO ×2 (16:58→20:28)
[2024-02-13 17:02] LABS: Blood Urea Nitrogen 37 mg/dl (9-20); Calcium 8.6 mg/dl (8.4-10.2); Carbon Dioxide 29 mmol/L (22-30); Chloride 96 mmol/L (98-107); Estimated Creatinine Clearance 82 ml/min; Glucose 142 mg/dl (70-99); Potassium 4.2 mmol/L (3.5-5.1); Sodium 133 mmol/L (135-145); eGFR > 60.00
[2024-02-13 17:11] LABS: Glucose - Point of Care 146 mg/dl (70-99)
--- NOTE | 2024-02-13 17:30 | PTCARENOTE ---
Pt tolerated Bipap well. Transitioned back on 15L midflow at 1645, pulse oximetry 93%. Pt remains ST with HR 111. BP 155/64 MAP 88. PA pressure 29/14, CVP 6. Most recent CO 6.12, CI 2.79, SVR 1045. Remains on Bumex gtt at 1mg/hr and Milrinone at
0.125mcg/kg/min. Pt now OOB in chair.
[2024-02-13] MEDS: BENICAR 20 MG PO (18:12)
[2024-02-13] MEDS: LIPITOR 40 MG PO (18:13)
--- NOTE | 2024-02-13 20:00 | PTCARENOTE ---
assumed care of pt from previous RN. pt resting in chair. pt A&Ox4, drowsy, easily arousable. pt assisted back to bed by 3 RNs. R IJ cordis w/ swan floated to 52cm. milrinone and bumex infusing. L radial a-line. all lines leveled, zeroed, flushed.
temp epicardial A/V wires insulated. Sinus tach w/ PACs on tele-monitor. CTx2 (mediastinal x2) to -20cm wall suction, draining sanguineous drainage. pt on 12 L midflow NC, POX 92%. abd s/n, +BS. robertson catheter draining clear, yellow urine. all
surgical sites stable, CDI. PIV x2 intact. see worklist for complete nursing assessment, interventions, VS, and I&Os.
--- NOTE | 2024-02-13 21:30 | PTCARENOTE ---
Addendum entered by Vivian Rizo RN 02/13/24 23:38:
500mg CaCl given.
Original Note:
BP low, MAPS ~55. levo started. bumex gtt turned off per CVPA. labs drawn.
[2024-02-13] MEDS: LEVOPHED 250 IV (21:34)
[2024-02-13 21:37] LABS: B.E. 4.5 mmol/L; HCO3 28.3 mmol/L (21-28); Ionized Calcium 1.19 mMOL/L (1.15-1.33); O2 Saturation % 97.6 % (94-98); PCO2 38 mmHg (35-48); PO2 79 mmHg (83-108); pH 7.48 (7.35-7.45)
[2024-02-13 21:39] LABS: Hematocrit 26.4 % (39.0-52.0); Hemoglobin 9.5 g/dL (13.0-18.0)
[2024-02-13] MEDS: CALCIUM CHLORIDE 10% SYRINGE 500 MG IV (21:39)
[2024-02-13 21:41] LABS: Glucose - Point of Care 157 mg/dl (70-99)
[2024-02-13 22:00] LABS: Blood Urea Nitrogen 39 mg/dl (9-20); Calcium 9.4 mg/dl (8.4-10.2); Carbon Dioxide 26 mmol/L (22-30); Chloride 95 mmol/L (98-107); Estimated Creatinine Clearance 76 ml/min; Glucose 141 mg/dl (70-99); Magnesium 1.9 mg/dl (1.6-2.3); Potassium 3.9 mmol/L (3.5-5.1); Sodium 132 mmol/L (135-145); eGFR > 60.00
--- NOTE | 2024-02-13 22:30 | PTCARENOTE ---
2g mag sulfate, 20mEq K+, and 50ml 25% albumin given. milrinone turned off per CVPA.
[2024-02-13] MEDS: KCL 50 IV (22:32)
[2024-02-13] MEDS: MAGNESIUM SULFATE 50 IV (22:32)
[2024-02-14] VITALS (43 sets, daily range): BP systolic 74–123; BP diastolic 44–79; PULSE 2–104; O2SAT 94–97; BMI 31.9
[2024-02-14 00:36] LABS: B.E. 4.5 mmol/L; HCO3 29.8 mmol/L (21-28); O2 Saturation % 99.7 % (94-98); O2 Therapy bipap 12/6; PCO2 47 mmHg (35-48); PO2 162 mmHg (83-108); pH 7.41 (7.35-7.45)
[2024-02-14 03:42] LABS: Hematocrit 26.7 % (39.0-52.0); Hemoglobin 9.1 g/dL (13.0-18.0); Mean Corp Hgb Conc. 34.1 g/dL (33.0-37.0); Mean Platelet Volume 10.2 fL (7.4-10.4); Platelet Count 211 10^3/uL (130-400); Red Blood Cell Count 3.14 10^6/uL (4.70-6.10); Red Cell Dist. Width 14.9 % (11.5-14.5); White Blood Cell Count 24.6 10^3/uL (4.8-10.8)
[2024-02-14 03:47] LABS: B.E. 5.4 mmol/L; Ionized Calcium 1.22 mMOL/L (1.15-1.33); O2 Saturation % 99.8 % (94-98); PCO2 50 mmHg (35-48); PO2 132 mmHg (83-108); Potassium 4.3 mMOL/L (3.5-5.1)
[2024-02-14 03:49] LABS: Mixed Venous O2 Saturation 74.5 %
[2024-02-14] MEDS: LEVOPHED 250 IV ×2 (04:00→17:12)
--- NOTE | 2024-02-14 04:00 | W.PN.CT ---
Today's Communication / Plan
-
-pod #3
-s/p Implella removal 02/12
-hypotensive with sbp 70s at 9:30 pm, asymptomatic, A&O x4 - started Levo, stopped Bumex drip, gave 500 Ca and BP improved. CXR with stable mediastinum and volume overload. h/h is stable 9.5/26.4.
-low SVR 500s with nl CI 2.9-4
-discussed with Dr. Matias -> Milrinone was discontinued at 10:30pm, gave 25% Albumin, stopped Benicar.
-current drips: Levo 9. CI 3.05, CO 6.68, SVR 658, mVO2 74.5
-abg 7.40/50/132/31 -on Bipap, follow
-plans to restart Bumex drip at lower dose 0.5 mg/h at 7am (UO 1615/3545)
-CT output: 2 meds 75/150 in 12/24 hrs
-Echo today (ordered)
-current meds (ASA, Plavix, Lipitor, Amio, Protonix, Skelaxin, Gabapentin). Held BB while on Levo
-encourage IS, OOB. Continue bipap at night
Assessment / Plan
-
Assessment:
S/P CABG x 5 (In situ WALKER to LAD, Ao to RSVG to ramus, Ao to RSVG to OM sequential to LPL, Ao to RSVG to RPDA)/Endoscopic vein harvesting of right lower extremity/Left atrial appendage exclusion, 35 mm clip/Left atrial surgical ablation, modified
maze procedure/ Insertion of a direct aortic ventricular assist device [5.5 Impella] via a 10 mm graft tunneled to the right supraclavicular position sewn directly to the distal ascending aorta, intraoperative management of VAD, by Dr. Matias,
02/11/24, pod#3
-Acute on chronic systolic heart failure
-ICM (EF 20-25% -> 35-40% -> intraop EF 10-15%)
-Cardiogenic shock (CI 1.3-1.5) S/P intraop Impella placement
-Acute respiratory failure secondary to pulmonary edema and volume overload
-Multivessel coronary artery disease involving the LAD and left main
-New onset atrial fibrillation with rapid ventricular response
-Moderate to severe ischemic mitral valve insufficiency, functional [type IIIb]
-Hyperlipidemia
-Hypertension
-Prediabetes (Hgb A1c of 6.0)
-Class I obesity (BMI 30.3)
-GERD
-Transaminitis
-History of tobacco abuse
-Mild to moderate emphysema
-Acute intraop/postop blood loss/Anemia (received 3 {5pk} plts and 1u PRBC)
-Acute postop atelectasis
-Acute postop hypovolemia with subsequent hypervolemia
-Acute postop hypotension requiring Levophed @ 12
-Acute postop sinus tachycardia with PVC's/PAC's
-Acute postop a-fib with rapid ventricular rate
-Acute postop NEERU -improved
Discussed patient care with: Nursing and Care Team
Subjective
Procedure
CABG x 5 (In situ WALKER to LAD, Ao to RSVG to ramus, Ao to RSVG to OM sequential to LPL, Ao to RSVG to RPDA)/Endoscopic vein harvesting of right lower extremity/Left atrial appendage exclusion, 35 mm clip/Left atrial surgical ablation, modified maze
procedure/ Insertion of a direct aortic ventricular assist device [5.5 Impella] via a 10 mm graft tunneled to the right supraclavicular position sewn directly to the distal ascending aorta, intraoperative management of VAD, by Dr. Matias, 02/11/24
-
Date of Service: February 14, 2024
Objective Data
-
PT 16.5 Sec (11.4-14.6) H 02/12/24 04:59
INR 1.35 02/12/24 04:59
APTT 43.8 Sec (23.4-35.0) H 02/13/24 04:18
Vital Signs
Vital Signs
Temp Pulse Resp BP Pulse Ox
97.8 F 93 16 103/61 97
02/14/24 01:00 02/14/24 01:15 02/14/24 01:15 02/14/24 01:00 02/14/24 01:15
CT Intake/Output/Weight
02/13/24 02/13/24 02/14/24
06:59 18:59 06:59
Intake Total 670.4 / 1850.8 585.5 / 1128.5 543.0 / 1128.5
Output Total 825 / 1540 2015 / 3430 1415 / 3430
Balance -154.6 / 310.8 -1429.5 / -2301.5 -872.0 / -2301.5
SaO2: 97
Physical Exam
-
General: Awake and AOx3
Cardiovascular: Regular rate & rhythm, No Murmurs and No Rub
Respiratory: Decreased Breath Sounds
Sternum: Stable
Incision: Clean, Dry and Intact
Extremities: Other (trace edema b/l, 2+ PTs b/l and 1+ DPs b/l)
Abdomen: soft, nondistended, nontender, + bowel sounds
Data Reviewed
-
Lab Results: Results Reviewed
Medications: Active Meds Reviewed
Chest X-Ray: Report Reviewed and Image Reviewed
ECG: Report Reviewed and Image Reviewed
--- NOTE | 2024-02-14 04:00 | PTCARENOTE ---
AM labs collected and sent. CT drainage WNL. U/O >0.5ml/kg/hr.
[2024-02-14 04:33] LABS: Blood Urea Nitrogen 35 mg/dl (9-20); Calcium 9.1 mg/dl (8.4-10.2); Carbon Dioxide 28 mmol/L (22-30); Chloride 96 mmol/L (98-107); Estimated Creatinine Clearance 89 ml/min; Glucose 139 mg/dl (70-99); Magnesium 2.4 mg/dl (1.6-2.3); Potassium 4.2 mmol/L (3.5-5.1); Sodium 133 mmol/L (135-145); eGFR > 60.00
[2024-02-14] MEDS: TYLENOL 1000 MG PO ×3 (05:26→20:23)
[2024-02-14] MEDS: MAGNESIUM OXIDE PO ×2 (07:49→22:57)
--- NOTE | 2024-02-14 08:21 | W.PN.ANS.POP ---
Anesthesia Post Operative
- Anesthesia Post Op Note
Vital Signs Stable-See Nursing Note: Yes (remains on Levophed gtt)
Airway Patent: Yes
Adequate Pain Control: Yes
Change in Mental Status: No
Current Postoperative Nausea & Vomiting: No
Anesthesia Complications: No
General Anesthetic Recall: No
Unplanned Admission: No
Post Op Hydration Adequate: Yes
--- NOTE | 2024-02-14 08:24 | W.PN.CD ---
Today's Communication / Plan
-
Bumex stopped
Wean levophed
Metoprolol when able
OOB and in chair if able
ISB
Impression / Plan
-
Impression/Plan: 58M presented to [facility] with SOB, found to be in AF with RVR with new systolic cardiomyopathy (LVEF 20-25%) with moderate/severe MR prompting a LHC revealing MVCAD. The patient was subsequently transferred for surgical
revascularization.
#NSTEMI/Coronary artery disease
-Acute.
-S/P CABG x5 (WALKER to LAD, SVG to RI, sequential SVG to OM to LPL, SVG to RPDA).
-Off of milrinone, weaning levophed
-metoprolol being held
-Chest tube/pain management per CT surgery.
-High dose, high potency statin.
-Continue amiodarone, aspirin, atorvastatin.
#HFrEF/ICM (EF 20-25%)
-Acute on chronic, CVP normal, bumex gtt stopped
-GDMT on hold post op.
-Trend daily weight, I/O, tele, and BMP.
-Improvement in CI/RA pressure on minimal Impella settings supports the theory that his third spacing is resolving.
-bumex stopped
-Labs reviewed - H/H falling and Cr up, but the balance of data suggests cardiorenal syndrome/hemodilution rather than hemolysis.
-Impella surgically removed.
-started on midodrine
#Paroxysmal atrial fibrillation with rapid ventricular response
-back in SR
-Rate/rhythm control with MAZE, amiodarone, metoprolol IV.
-Oral Anticoagulation: S/P LAAL at the time of surgery (#35 Atriclip). Heparin drip now; eventually apixaban 5 mg twice daily post-operatively.
-[id number]: Score at least 3 (Heart failure, HTN, Vascular disease).
#Dyslipidemia
-Chronic, stable.
-Total cholesterol = 136, LDL = 82, HDL = 39, Triglycerides = 75.
-Atorvastatin to 40 mg daily.
-Goal LDL < 55.
#Prediabetes, HgbA1c 6.0%, consider SGLT2
#Obesity, BMI 32, he would benefit from weight loss
#Former smoker, 2 PPD x 30 years, quit in 2021, continued cessation recommended
Critical Care Time = 38 minutes.
Subjective/Interval History:
Remains on higher levels of oxygen support (88-91% on 9L Midflow).
Weight is up 2.8 kg from yesterday, 6.9 kg from 02/11/2024.
Pulse has improved with the addition of metoprolol.
MAP is consistently > 75 mmHg.
CI is 2.8-3.4.
PA = 30/16.
RA = 11.
He received furosemide 20 mg IV on 02/12/2024 @ 18:47, then 40 mg IV this morning @ 8:07.
Hbg down to 8.8 from 10.4 from 12.4.
Haptoglobin pending.
Creatinine up to 1.5 (form 0.9).
Na down to 132.
Total bilirubin 1.5 (down from 1.7).
LDH falling (427 --> 351 --> 291).
DATA:
Transthoracic echocardiogram 02/03/2024:
LVEF 20-25%. Severe global hypokinesis. Moderate to severe mitral valve regurgitation. Mitral valve leaflets are tethered. Mildly elevated PASP, 31 mmHg.
Cardiac catheterization, 02/05/2024:
Severe multivessel coronary artery disease with left main involvement. Moderate to severely depressed LVEF with at least moderate mitral regurgitation. Mild to moderately elevated left and right pressures with no evidence of aortic stenosis. CI
2.33.
TTE, 02/10/2024:
CONCLUSIONS
-Left ventricular ejection fraction is approximately 35-40%. Global
hypokinesis. Wall motion is consistent with conduction abnormality.
-Normal right ventricular size and function.
-Moderately dilated left atrium.
-Mitral valve opens normally. Mild mitral regurgitation.
-Aortic sclerosis without stenosis.
-Trace tricuspid regurgitation. Estimated pulmonary artery pressure of 20-25
mmHg.
-Possible notable plaque seen in the aortic arch (image views 72-77).
Physical Exam
Vital Signs/Labs
Vital Signs
Temp Pulse Resp BP Pulse Ox
98.3 F 95 25 104/79 96
02/14/24 06:00 02/14/24 07:45 02/14/24 07:45 02/14/24 07:00 02/14/24 07:45
02/13/24 02/14/24 02/15/24
06:59 06:59 06:59
Actual Weight 232 lb 12.93 oz 228 lb 6.382 oz
02/14/24 03:30
02/14/24 03:30
PT 16.5 Sec (11.4-14.6) H 02/12/24 04:59
INR 1.35 02/12/24 04:59
APTT 43.8 Sec (23.4-35.0) H 02/13/24 04:18
Magnesium 2.4 mg/dl (1.6-2.3) H 02/14/24 03:30
Triglycerides 75 mg/dl (10-149) 02/06/24 10:10
LDL Cholesterol, Calc 82 mg/dl 02/06/24 10:10
VLDL Cholesterol, Calc 15 mg/dl (0-30) 02/06/24 10:10
HDL Cholesterol 39 mg/dl 02/06/24 10:10
02/06/24 02/13/24
10:10 04:18
Uqg-O-Phlhlnxrbxh Pept 1390 1140
Physical Exam
Constitutional: No acute distress
EENT: Anicteric
Cardiovascular: Rhythm & rate is regular and Pedal edema is absent
Respiratory: Other (decreased inspiratory effort 2/2 to pain, rhonchi throughout lung villanueva )
GI: Soft
Neuro/Psych: AO x 3
Data Reviewed
-
Date of Service: February 14, 2024
Medical Decision Making: Reviewed Test Results
EKG: Tracing Personally Visualized and interpreted (sr)
Echo: Report Reviewed by me
Labs: Labs Reviewed by me
[2024-02-14] MEDS: SKELAXIN 800 MG PO ×3 (08:41→20:23)
[2024-02-14] MEDS: DIAMOX 250 MG PO (08:41)
[2024-02-14] MEDS: PACERONE 200 MG PO ×3 (08:42→20:23)
[2024-02-14] MEDS: MUCINEX 1200 MG PO ×2 (08:42→20:23)
[2024-02-14] MEDS: SENOKOT-S 1 TABLET PO ×2 (08:42→20:23)
[2024-02-14] MEDS: NEURONTIN 100 MG PO ×3 (08:42→20:23)
[2024-02-14] MEDS: LIDOCAINE 4% PATCH 1 PATCH TOPICAL (08:42)
[2024-02-14] MEDS: ProAmatine 10 MG PO ×3 (08:42→18:15)
[2024-02-14] MEDS: LOW STRENGTH ASPIRIN 81 MG PO (08:42)
[2024-02-14] MEDS: PROTONIX 40 MG PO (08:42)
[2024-02-14] MEDS: BACTROBAN 2% OINTMENT 1 APPLIC NASAL ×2 (08:42→20:23)
[2024-02-14] MEDS: PLAVIX 75 MG PO (08:42)
--- NOTE | 2024-02-14 08:45 | PTCARENOTE ---
Assumed care of patient at 0700. Pt is awake, alert, and oriented. Pt remains SR/ST with HR 90's-100. BP 115/48 MAP 66, PA 26/10, CVP 8, CO 8.37, CI 3.82, SVR 583. AV wires pulled this AM by CT HEAD OF DIG[employer] ADVERTISING [employer] INTEGRATION. Pulse oximetry 97% on 10L midflow. Mediastinal
chest tubes in place, no sign of air leak or crepitus. Pt tolerating heart healthy diet. Vega catheter remains in place draining yellow urine. Midsternal incision, right leg incision, and right upper chest incision all approximated with surgical
glue in place, CROP CONSULTANT. Right groin puncture intact and CROP CONSULTANT. Right IJ cordis in place with Biggers-Cris catheter at 52cm. Left radial Rosa Elena intact. Pt remains on Levo gtt, now down to 5mcg/min. Pt currently resting comfortably in bed with call higuera within
reach.
--- NOTE | 2024-02-14 10:56 | W.PN.INTV ---
Today's Communication / Plan
Recommendations
Wean down Levophed
Holding antihypertensive
Holding further diuresis
Daily chest x-ray
Incentive spirometry
Wean down oxygen
Nocturnal BiPAP while in the hospital
Increase activity as able
Follow chest tube output
Assessment
-
Status post coronary artery bypass grafting x5- 02/11/2024 Dr. Matias
Status post ventricular assist device/Impella
Cardiogenic shock
postoperative mechanical ventilation
Postoperative anemia
Paroxysmal atrial fibrillation with rapid ventricular response-improved
Acute kidney injury
Conditions present prior admission:
Ischemic cardiomyopathy ejection fraction 20-25%.
GERD
Hypertension
Hyper cholesterolemia
Obesity
Prediabetes
Former smoker [id number] history quit in [address] chest with mild changes consistent with emphysema 02/07/2024.
Spirometry without airflow obstruction. Suggestion of restriction.02/08/2024
Plan and recommendations:
Postoperative day 3
Impella device removed 02/13/2024.
On supplemental oxygen wean as able.
ABG noted: Metabolic alkalosis with respiratory acidosis. Compensated pH.
Agree with nocturnal BiPAP while in the hospital. Eventual sleep apnea evaluation per
-
Chest x-ray 02/14/2024 consistent with pulmonary vascular congestion, right lower lobe abnormality likely atelectasis.
Incentive spirometry
Increase activity as able
-
Diuresis overnight, brisk response developing hypotension.
Contraction alkalosis as well.
On low-dose Levophed, wean as able.
May need to give some IV fluids back.
Holding antihypertensive.
-
Milrinone has been discontinued.
Continue to follow daily weights
Acute kidney injury: Resolving
Cardiology correspondence reviewed-on PO amiodarone.
Metoprolol on hold due to hypotension.
Eventual oral anticoagulation.
Anemia noted-no evidence of acute bleeding
Follow H&H serially
Chest tube with no excessive drainage-no air leak.
Chest x-ray reviewed 02/14/2024: With no pneumothorax or fluid collections. Mild pulmonary vascular congestion. Right lower lobe atelectasis.
Advance diet as tolerated
Head of the bed elevation
Eventual sleep apnea evaluation-patient states that he was diagnosed with a sleep apnea in the past. He Discontinued CPAP.
I recommended reevaluation. He is agreeable. Information will be left in the chart.
Glycemic control per protocol
DVT prophylaxis when safe from the surgical perspective.
Critical care statement: A total of 32 minutes of critical care time was provided for this patient today. This includes management of unstable vital signs, evaluation of the patient at bedside, reviewing the patient's pertinent medical records
including ventilator settings, arterial blood gases, radiographs, microbiology, laboratory evaluations and discussion with primary team, critical care nursing, and respiratory therapy.
Data:
Transthoracic echocardiogram 02/03/2024:
LVEF 20-25%. Severe global hypokinesis. Moderate to severe mitral valve regurgitation. Mitral valve leaflets are tethered. Mildly elevated PASP, 31 mmHg.
Cardiac catheterization, 02/05/2024:
Severe multivessel coronary artery disease with left main involvement. Moderate to severely depressed LVEF with at least moderate mitral regurgitation. Mild to moderately elevated left and right pressures with no evidence of aortic stenosis. CI
2.33.
Subjective Dataa
Subjective Data
Date of Service:
Date of Service: February 14, 2024
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
Subjective:
Hypotensive overnight started on Levophed.
Now sitting out of bed. Alert and cooperative.
Pain is better controlled.
Suspect related to Bumex and brisk diuresis/volume depletion. In addition to antihypertensive
Continues to report some discomfort on incision.
No significant cough or phlegm production
Review of Systems
General: Fever (n)
Cardiopulmonary: Dyspnea (n)
GI: Abdominal Pain (n) and Nausea (n)
Neuro: Headache (n)
Objective Data
Data Reviewed
Vital Signs / I&O / Oxygen:
Vital Signs
Temp Pulse Resp BP Pulse Ox
98.9 F 103 19 97/60 94
02/14/24 09:00 02/14/24 10:45 02/14/24 10:45 02/14/24 10:00 02/14/24 10:30
Intake and Output
02/13/24 02/14/24 02/15/24
06:59 06:59 06:59
Intake Total 1775.2 / 1850.8 1457.5 / 1511.3 168.9 / 168.9
Output Total 1445 / 1540 4625 / 4800 410 / 410
Balance 330.2 / 310.8 -3167.5 / -3288.7 -241.1 / -241.1
SaO2 [CPAP/PSV] 95
SaO2 [SIMV] 99
SaO2 94
Nasal Cannula flow liters per 8
minute
Physical Exam
General: Respiratory Distress (n) and Comfortable
HEENT: Normocephalic
Cardiovascular: S1-S2
Respiratory: Clear, Wheeze (n), Non-Labored Respirations, Chest Tube (No excessive drainage or leak) and Other (Decreased breath sounds in bases.)
GI: Distended (obese)
Neurology: Awake, Alert and No Motor Deficits
Skin: Warm
Labs/Micro/Reports
Lab Data
02/14/24 03:30
02/14/24 03:30
Laboratory Results
02/13/24 02/13/24 02/13/24
12:23 13:53 16:34
pH 7.50 H 7.44 7.47 H
pCO2 34 L 40 38
pO2 69 L 92 102
HCO3 26.5 27.2 27.7
O2 Delivery Level Not Reportable
02/13/24 02/14/24 02/14/24
21:31 00:25 03:30
pH 7.48 H 7.41 7.40
pCO2 38 47 50 H
pO2 79 L 162 H 132 H
HCO3 28.3 H 29.8 H 31.0 H
O2 Delivery Level bipap 08/08
[2024-02-14] MEDS: NOVOLOG FLEXPEN-MODERATE RESISTANCE SC ×2 (11:21→14:35)
--- NOTE | 2024-02-14 11:52 | PTCARENOTE ---
Mediastinal chest tubes x2 d/c'd per order. Loma-Cris catheter d/c'd. Levo gtt currently at 3mcg/min. Echo currently being completed at bedside.
[2024-02-14] MEDS: BUMEX 2 MG IV (12:28)
[2024-02-14 13:30] LABS: Glucose - Point of Care 141 mg/dl (70-99)
--- NOTE | 2024-02-14 16:30 | PTCARENOTE ---
Levo gtt at 6mcg/min. BP currently 121/53 MAP 71. Pulse oximetry 92% on 4L nasal cannula. Pt tolerated being OOB in chair for several hours. Pt now back in bed resting comfortably with family at bedside. Pt with minimal complaints of pain.
[2024-02-14] MEDS: LIPITOR 40 MG PO (18:16)
[2024-02-14] MEDS: NSS IV (18:16)
[2024-02-14] MEDS: NOVOLOG FLEXPEN-MODERATE RESISTANCE 3 UNITS SC (18:34)
[2024-02-14 18:37] LABS: Glucose - Point of Care 209 mg/dl (70-99)
[2024-02-14 19:25] LABS: Blood Urea Nitrogen 30 mg/dl (9-20); Calcium 8.9 mg/dl (8.4-10.2); Carbon Dioxide 28 mmol/L (22-30); Chloride 94 mmol/L (98-107); Estimated Creatinine Clearance 97 ml/min; Glucose 128 mg/dl (70-99); Potassium 3.5 mmol/L (3.5-5.1); Sodium 130 mmol/L (135-145); eGFR > 60.00
--- NOTE | 2024-02-14 20:00 | PTCARENOTE ---
assumed care of pt from previous RN. pt A&Ox4, resting in bed at time of assessment. SR on tele-monitor, HR 90s. trace generalized edema noted. palpable peripheral pulses. POX 92-94% on 4 L midflow NC. abd s/n, +BS. pt reports poor appetite.robertson
catheter draining clear, yellow urine. all surgical sites stable. R IJ cordis w/ KVO. levophed infusing, see flowsheet for details. L radial a-line- leveled, zeroed, flushed. PIV x2 intact.
[2024-02-14] MEDS: KCL 40 MEQ PO (20:23)
[2024-02-14 20:55] LABS: B.E. 5.9 mmol/L; HCO3 29.7 mmol/L (21-28); Ionized Calcium 1.14 mMOL/L (1.15-1.33); O2 Saturation % 98.2 % (94-98); PCO2 39 mmHg (35-48); PO2 77 mmHg (83-108); pH 7.49 (7.35-7.45)
[2024-02-14] MEDS: KCL 50 IV (21:05)
[2024-02-14 21:14] LABS: Magnesium 2.5 mg/dl (1.6-2.3)
[2024-02-14] MEDS: CALCIUM CHLORIDE 10% SYRINGE 60 MG IV (22:05)
[2024-02-14] MEDS: ZOFRAN 4 MG IV (22:06)
--- NOTE | 2024-02-14 22:14 | PTCARENOTE ---
pt experienced emesis x2. zofran given. RT placed pt on bipap w/ nasal mask.
[2024-02-15] VITALS (87 sets, daily range): BP systolic 73–132; BP diastolic 35–72; BMI 31.6
--- NOTE | 2024-02-15 | PTCARENOTE ---
assessment remains unchanged. no c/o N/V. tolerating bipap nasal mask.
[2024-02-15 03:18] LABS: B.E. 6.1 mmol/L; HCO3 30.6 mmol/L (21-28); Ionized Calcium 1.23 mMOL/L (1.15-1.33); O2 Saturation % 97.3 % (94-98); PCO2 43 mmHg (35-48); PO2 73 mmHg (83-108); Potassium 3.9 mMOL/L (3.5-5.1); pH 7.46 (7.35-7.45)
[2024-02-15 03:24] LABS: Hematocrit 26.7 % (39.0-52.0); Hemoglobin 9.4 g/dL (13.0-18.0); Mean Corp Hgb Conc. 35.2 g/dL (33.0-37.0); Mean Corpuscular Hgb 29.4 pg (27.0-31.0); Mean Corpuscular Volume 83.4 fL (80.0-94.0); Mean Platelet Volume 9.9 fL (7.4-10.4); Platelet Count 276 10^3/uL (130-400); Red Cell Dist. Width 14.9 % (11.5-14.5); White Blood Cell Count 17.3 10^3/uL (4.8-10.8)
[2024-02-15 03:25] LABS: O2 Therapy 5L NC
[2024-02-15] MEDS: REGLAN 10 MG IV ×4 (03:37→23:30)
--- NOTE | 2024-02-15 03:46 | PTCARENOTE ---
assessment remains unchanged. pt c/o N/V. reglan given. abd XR ordered. AM labs collected and sent.
[2024-02-15 03:48] LABS: Haptoglobin 36 mg/dL (30-200)
[2024-02-15 03:54] LABS: ALT (SGPT) 24 U/L (0-50); AST (SGOT) 37 U/L (17-59); Albumin 3.4 g/dl (3.5-5.0); Alkaline Phosphatase 103 U/L (38-126); Blood Urea Nitrogen 30 mg/dl (9-20); Calcium 9.6 mg/dl (8.4-10.2); Carbon Dioxide 29 mmol/L (22-30); Chloride 96 mmol/L (98-107); Direct Bilirubin 0.5 mg/dl (0.0-0.4); Estimated Creatinine Clearance 97 ml/min; Glucose 117 mg/dl (70-99); Magnesium 2.6 mg/dl (1.6-2.3); Sodium 134 mmol/L (135-145); Total Bilirubin 1.2 mg/dl (0.2-1.3); Total Protein 5.8 g/dl (6.3-8.2); eGFR > 60.00
[2024-02-15] MEDS: TYLENOL PO ×3 (05:05→22:18)
[2024-02-15] MEDS: OFIRMEV 100 IV ×3 (05:07→23:04)
--- NOTE | 2024-02-15 05:28 | W.PN.CT ---
Today's Communication / Plan
-
-pod #4
-nausea, vomited green bile x4 overnight- got Zofran/Reglan. Abdomen is soft, mildly distended with decreased bowel sounds, nontender - will check abd xry. LFTs nl
-drips: Levo 4
-ABG this am looks ok 7.46/43/73/30.6
-I/O 865/1935 in 12/24 hrs
-started on Midodrine 10 tid
-? d/c Vega, follow UO
-encourage IS, OOB, ambulate
Assessment / Plan
-
Assessment:
S/P CABG x 5 (In situ WALKER to LAD, Ao to RSVG to ramus, Ao to RSVG to OM sequential to LPL, Ao to RSVG to RPDA)/Endoscopic vein harvesting of right lower extremity/Left atrial appendage exclusion, 35 mm clip/Left atrial surgical ablation, modified
maze procedure/ Insertion of a direct aortic ventricular assist device [5.5 Impella] via a 10 mm graft tunneled to the right supraclavicular position sewn directly to the distal ascending aorta, intraoperative management of VAD, by Dr. Matias,
02/11/24, pod#4
-Acute on chronic systolic heart failure
-ICM (EF 20-25% -> 35-40% -> intraop EF 10-15%)
-Cardiogenic shock (CI 1.3-1.5) S/P intraop Impella placement
-Acute respiratory failure secondary to pulmonary edema and volume overload
-Multivessel coronary artery disease involving the LAD and left main
-New onset atrial fibrillation with rapid ventricular response
-Moderate to severe ischemic mitral valve insufficiency, functional [type IIIb]
-Hyperlipidemia
-Hypertension
-Prediabetes (Hgb A1c of 6.0)
-Class I obesity (BMI 30.3)
-GERD
-Transaminitis
-History of tobacco abuse
-Mild to moderate emphysema
-Acute intraop/postop blood loss/Anemia (received 3 {5pk} plts and 1u PRBC)
-Acute postop atelectasis
-Acute postop hypovolemia with subsequent hypervolemia
-Acute postop hypotension requiring Levophed @ 12
-Acute postop sinus tachycardia with PVC's/PAC's
-Acute postop a-fib with rapid ventricular rate
-Acute postop NEERU -improved
Discussed patient care with: Nursing and Care Team
Subjective
Procedure
CABG x 5 (In situ WALKER to LAD, Ao to RSVG to ramus, Ao to RSVG to OM sequential to LPL, Ao to RSVG to RPDA)/Endoscopic vein harvesting of right lower extremity/Left atrial appendage exclusion, 35 mm clip/Left atrial surgical ablation, modified maze
procedure/ Insertion of a direct aortic ventricular assist device [5.5 Impella] via a 10 mm graft tunneled to the right supraclavicular position sewn directly to the distal ascending aorta, intraoperative management of VAD, by Dr. Matias, 02/11/24
-
Date of Service: February 15, 2024
Objective Data
-
Lab Results
02/15/24 03:10
02/15/24 03:10
PT 16.5 Sec (11.4-14.6) H 02/12/24 04:59
INR 1.35 02/12/24 04:59
APTT 43.8 Sec (23.4-35.0) H 02/13/24 04:18
Vital Signs
Vital Signs
Temp Pulse Resp BP Pulse Ox
99.8 F 100 21 107/55 91
02/15/24 04:00 02/15/24 04:00 02/15/24 04:00 02/15/24 04:00 02/15/24 04:00
CT Intake/Output/Weight
06/13/24 06/13/24 06/14/24
06:59 18:59 06:59
Intake Total 872.0 / 1511.3 394.1 / 736.8 342.7 / 736.8
Output Total 2610 / 4800 1080 / 2145 1065 / 2145
Balance -1738.0 / -3288.7 -685.9 / -1408.2 -722.3 / -1408.2
SaO2: 91
Physical Exam
-
General: Awake and AOx3
Cardiovascular: Regular rate & rhythm and No Rub
Respiratory: Rales (at bases. no wheeze) and Decreased Breath Sounds
Sternum: Stable
Incision: Clean, Dry and Intact
Extremities: Edema +1
Abdomen: soft, nontender, very mildly distended, + flatus
Data Reviewed
-
Lab Results: Results Reviewed
Medications: Active Meds Reviewed
Chest X-Ray: Report Reviewed and Image Reviewed
ECG: Report Reviewed and Image Reviewed
[2024-02-15] MEDS: ProAmatine 10 MG PO (05:56)
--- NOTE | 2024-02-15 07:00 | PTCARENOTE ---
pt vomited x4 overnight. assisted OOB to chair in AM. BP decreased, O2 sat decreased, febrile. pt placed on hiflo 50L 100% fio2. pt remained A&Ox4. NG tube placed by Dr. Matias. chato, bile output. vasopressin added.
[2024-02-15] MEDS: LEVOPHED 250 IV ×2 (07:13→15:29)
[2024-02-15 07:25] LABS: B.E. 3.1 mmol/L; Ionized Calcium 1.19 mMOL/L (1.15-1.33); O2 Saturation % 98.8 % (94-98); PCO2 38 mmHg (35-48); PO2 109 mmHg (83-108); Potassium 4.1 mMOL/L (3.5-5.1); Sodium 130 mMOL/L (136-145); pH 7.46 (7.35-7.45)
--- NOTE | 2024-02-15 07:41 | W.PN.CD ---
Today's Communication / Plan
-
UA.
Cook culture.
Check cortisol.
LR [address] abdomen.
Empiric cefepime and vancomycin. Consider anaerobic coverage.
Dulcolax suppositories.
Impression / Plan
-
Impression/Plan: 58M presented to [facility] with SOB, found to be in AF with RVR with new systolic cardiomyopathy (LVEF 20-25%) with moderate/severe MR prompting a LHC revealing MVCAD. The patient was subsequently transferred for surgical
revascularization.
#NSTEMI/Coronary artery disease
-Acute.
-S/P CABG x5 (WALKER to LAD, SVG to RI, sequential SVG to OM to LPL, SVG to RPDA).
-Norepinephrine remains due to some hypotension.
-Chest tube/pain management per CT surgery.
-High dose, high potency statin.
-Continue amiodarone, aspirin, atorvastatin.
-Post-op ileus. Dulcolax suppositories.
#HFrEF/ICM (EF 20-25%)
-Acute on chronic, CVP normal, bumex gtt stopped
-GDMT on hold post op.
-Trend daily weight, I/O, tele, and BMP.
-Impella surgically removed.
-Started on midodrine.
#Hypotension
-Acute, multifactorial.
-Low diastolic pressures and prior CO/CI suggest that this is due to poor vascular tone.
-DDx includes sepsis, adrenal crisis, overdiuresis.
-Check cortisol level.
-Cook culture. UA. CT abdomen.
-Empiric antibiotics. Note - vancomycin and cefepime are adequate for HAP (broad coverage, including MRSA and pseudomonas sp.) but consider anaerobic coverage if there is concern for GI process or aspiration.
#Paroxysmal atrial fibrillation with rapid ventricular response
-Back in SR
-Rate/rhythm control with MAZE, amiodarone, metoprolol IV.
-Oral Anticoagulation: S/P LAAL at the time of surgery (#35 Atriclip). Heparin drip now; eventually apixaban 5 mg twice daily post-operatively.
-[id number]: Score at least 3 (Heart failure, HTN, Vascular disease).
#Dyslipidemia
-Chronic, stable.
-Total cholesterol = 136, LDL = 82, HDL = 39, Triglycerides = 75.
-Atorvastatin to 40 mg daily.
-Goal LDL < 55.
#Prediabetes, HgbA1c 6.0%, consider SGLT2
#Obesity, BMI 32, he would benefit from weight loss
#Former smoker, 2 PPD x 30 years, quit in 2021, continued cessation recommended
Critical Care Time = 47 minutes.
Subjective/Interval History:
Weight is down 0.8 kg from yesterday.
Hypotensive yesterday.
Febrile to 38.2.
Vasopressin added to norepinephrine/midodrine.
Current MAP of 55 mmHg (primarily driven by low diastolic pressure).
CXR shows RLL infiltrate (per my read).
AXR shows dilated loops of bowel consistent with ileus (per my read).
DATA:
Transthoracic echocardiogram 02/03/2024:
LVEF 20-25%. Severe global hypokinesis. Moderate to severe mitral valve regurgitation. Mitral valve leaflets are tethered. Mildly elevated PASP, 31 mmHg.
Cardiac catheterization, 02/05/2024:
Severe multivessel coronary artery disease with left main involvement. Moderate to severely depressed LVEF with at least moderate mitral regurgitation. Mild to moderately elevated left and right pressures with no evidence of aortic stenosis. CI
2.33.
TTE, 02/10/2024:
CONCLUSIONS
-Left ventricular ejection fraction is approximately 35-40%. Global
hypokinesis. Wall motion is consistent with conduction abnormality.
-Normal right ventricular size and function.
-Moderately dilated left atrium.
-Mitral valve opens normally. Mild mitral regurgitation.
-Aortic sclerosis without stenosis.
-Trace tricuspid regurgitation. Estimated pulmonary artery pressure of 20-25
mmHg.
-Possible notable plaque seen in the aortic arch (image views 72-77).
Physical Exam
Vital Signs/Labs
Vital Signs
Temp Pulse Resp BP Pulse Ox
37.9 C 105 18 105/64 97
02/15/24 05:00 02/15/24 07:15 02/15/24 07:15 02/15/24 07:15 02/15/24 07:15
02/13/24 02/14/24 02/15/24
11:59 11:59 11:59
Actual Weight 105.6 kg 103.6 kg 102.8 kg
02/15/24 03:10
02/15/24 03:10
PT 16.5 Sec (11.4-14.6) H 02/12/24 04:59
INR 1.35 02/12/24 04:59
APTT 43.8 Sec (23.4-35.0) H 02/13/24 04:18
Magnesium 2.6 mg/dl (1.6-2.3) H 02/15/24 03:10
Triglycerides 75 mg/dl (10-149) 02/06/24 10:10
LDL Cholesterol, Calc 82 mg/dl 02/06/24 10:10
VLDL Cholesterol, Calc 15 mg/dl (0-30) 02/06/24 10:10
HDL Cholesterol 39 mg/dl 02/06/24 10:10
02/06/24 02/13/24
10:10 04:18
[id number] Pept 1390 1140
Physical Exam
Constitutional: No acute distress and Comfortable
EENT: Anicteric and Moist mucous membranes
Cardiovascular: Rhythm & rate is regular, Pedal edema is absent, JVD pressure is normal, S1S2 is normal and Murmur/rub/gallop absent
Respiratory: Respiratory effort normal, Wheeze Absent, Crackles Present, Rhonchi Present and Other
GI: Soft, Distention absent, Flat, Non tender and Normal bowel sounds
Neuro/Psych: AO x 3
Data Reviewed
-
Date of Service: February 15, 2024
Medical Decision Making: Reviewed Test Results, Independent Historian Assessment, Test Interpretation and Review of Case with other Provider
EKG: Tracing Personally Visualized and interpreted and Report Reviewed by me
Echo: Tracing Personally Visualized and interpreted and Report Reviewed by me
X-Ray/CT/US/MRI/NUC/PET: Image Personally Visualized and interpreted and Report Reviewed by me
Medical Tests (PFT, Pathology etc): Report Reviewed by me
Labs: Labs Reviewed by me and Labs Ordered by me
Old Records: Reviewed
[2024-02-15] MEDS: CALCIUM CHLORIDE 10% SYRINGE 1000 MG IV (07:48)
[2024-02-15] MEDS: NOVOLOG FLEXPEN-MODERATE RESISTANCE SC ×3 (07:48→17:05)
--- NOTE | 2024-02-15 08:00 | PTCARENOTE ---
Assumed care of patient. Walking rounds completed with previous RN. Pt assisted back to bed d/t hypotension. Assessed while lying in bed. Pt drowsy but oriented x4. Pt denies pain, shortness of breath. ST with PVCs with rates in the 100s. BP
supported with levophed and vaso gtts. Bilateral radial and DP pulses palpable. +2 lower extremity edema, +1 generalized edema. POX 99% on High Flow NC 50L 100%, RT contacted to wean o2 down. Rhonchi throughout. CDB encouraged, unable to complete
IS. Productive cough with yellow sputum. Abdomen soft, round, obese, nontender. Hypoactive BS. NGT to Right nare to LIS draining green fluid. Vega catheter intact draining leora urine. Sternal incision approximated with skin glue-BRUCE. Right chest
wall old impella site approximated BRUCE. 4 old chest tube sites approximated, dressing changed. Right groin puncture site approximated with skin glue-WEED CUTTER. Right SVG harvest site approximated with skin glue, WEED CUTTER. Right IJ cordis intact infusing NSS
KVO, levo, vaso. Right forearm 18g PIV and left forearm 22g PIV intact. See MAR for medication administration. See worklist for complete nursing assessment. Plan of care reviewed and patient in agreement. Pt's called and updated per patient
request.
[2024-02-15] MEDS: FLEXBUMIN 100 IV ×3 (08:49→23:30)
[2024-02-15 09:13] LABS: Urine Albumin Trace (Neg - Trace); Urine Bilirubin 1+ (Negative); Urine Character Slightly Cloudy (Clear); Urine Color Yellow; Urine Glucose Negative (Negative); Urine Ketone Negative (Negative); Urine Leukocyte Trace (Negative); Urine Nitrite Negative (Negative); Urine Occult Blood 4+ (Negative); Urine Specific Gravity 1.015 (<1.030); Urine Urobilinogen 1+ (Neg - 1+)
[2024-02-15] MEDS: BACTROBAN 2% OINTMENT 1 APPLIC NASAL (09:15)
[2024-02-15] MEDS: BUMEX 2 MG IV (09:16)
[2024-02-15] MEDS: MUCINEX PO ×2 (09:16→20:26)
[2024-02-15] MEDS: LIDOCAINE 4% PATCH 1 PATCH TOPICAL (09:16)
[2024-02-15] MEDS: PLAVIX PO (09:16)
[2024-02-15] MEDS: SENOKOT-S PO ×2 (09:16→20:26)
[2024-02-15] MEDS: LOW STRENGTH ASPIRIN PO (09:16)
[2024-02-15] MEDS: PACERONE PO ×3 (09:16→22:18)
[2024-02-15] MEDS: PROTONIX IV 40 MG IV (09:17)
[2024-02-15] MEDS: NSS (PRESERVATIVE FREE) 10 ML IV (09:17)
[2024-02-15] MEDS: PROTONIX PO (09:18)
[2024-02-15 09:32] LABS: Urine Red Blood Cell 80-90 /HPF (0-2)
[2024-02-15 09:43] LABS: Procalcitonin 0.26 ng/ml (0.0-0.25)
[2024-02-15] MEDS: VANCOCIN 300 ML IV (09:55)
[2024-02-15] MEDS: VANCOCIN 300 MG IV (09:55)
[2024-02-15] MEDS: STERILE WATER FOR INJECTION 10 ML IV ×2 (10:02→18:10)
[2024-02-15] MEDS: MAXIPIME 1000 MG IV ×2 (10:02→18:10)
[2024-02-15 10:39] LABS: Cortisol, Random 63.9 ug/dl
[2024-02-15 11:15] LABS: Glucose - Point of Care 125 mg/dl (70-99)
[2024-02-15 11:20] LABS: B.E. 4.7 mmol/L; HCO3 29.2 mmol/L (21-28); Ionized Calcium 1.27 mMOL/L (1.15-1.33); O2 Saturation % 94.7 % (94-98); PCO2 42 mmHg (35-48); PO2 64 mmHg (83-108); Potassium 3.8 mMOL/L (3.5-5.1); Sodium 132 mMOL/L (136-145); pH 7.45 (7.35-7.45)
[2024-02-15 11:22] LABS: Hematocrit 25.9 % (39.0-52.0); Hemoglobin 8.9 g/dL (13.0-18.0); Mean Corp Hgb Conc. 34.4 g/dL (33.0-37.0); Mean Corpuscular Hgb 29.1 pg (27.0-31.0); Mean Corpuscular Volume 84.6 fL (80.0-94.0); Mean Platelet Volume 10.1 fL (7.4-10.4); Platelet Count 245 10^3/uL (130-400); Red Blood Cell Count 3.06 10^6/uL (4.70-6.10); Red Cell Dist. Width 15.1 % (11.5-14.5); White Blood Cell Count 12.1 10^3/uL (4.8-10.8)
[2024-02-15 11:29] LABS: APTT 27.8 Sec (23.4-35.0); INR 1.34; PT 16.4 Sec (11.4-14.6)
[2024-02-15 11:32] LABS: Ammonia < 9 umol/L (9-30); Lactic Acid 0.9 mmol/L (0.7-2.0)
[2024-02-15 11:33] LABS: ALT (SGPT) 25 U/L (0-50); AST (SGOT) 34 U/L (17-59); Albumin 3.5 g/dl (3.5-5.0); Alkaline Phosphatase 107 U/L (38-126); Blood Urea Nitrogen 34 mg/dl (9-20); Calcium 9.7 mg/dl (8.4-10.2); Carbon Dioxide 29 mmol/L (22-30); Chloride 96 mmol/L (98-107); Estimated Creatinine Clearance 75 ml/min; Glucose 120 mg/dl (70-99); Magnesium 2.4 mg/dl (1.6-2.3); Potassium 3.8 mmol/L (3.5-5.1); Sodium 134 mmol/L (135-145); Total Bilirubin 1.7 mg/dl (0.2-1.3); Total Protein 5.9 g/dl (6.3-8.2); eGFR > 60.00
[2024-02-15 11:42] LABS: Mixed Venous O2 Saturation 65.7 %
[2024-02-15] MEDS: KCL 50 IV ×2 (11:49→23:30)
[2024-02-15] MEDS: DULCOLAX 10 MG RECTAL (11:49)
--- NOTE | 2024-02-15 12:00 | PTCARENOTE ---
Pt reassessed. Pt drowsy and falling asleep during conversation. SR with PVCs with rates in the 80s-90s. BP supported with levophed and vaso gtts. POX 95% on 60L 80% high flow NC. NGT remains to LIS draining green fluid. Vega draining adequate
amounts of clear leora urine. New stat lock applied. Surgical sites stable. Cordis and PIVs intact. CT HAND TURNER updated on labs and pt condition.
[2024-02-15 12:01] LABS: Absolute Neutrophils -Man Diff 9.5 10^3/uL (1.4-6.5); Anisocytosis 1+; Band Neutrophils 6 % (0-3); Hypochromasia Slight; Lymphocytes 7 % (20-51); Monocytes 14 % (2-9); Normal RBC Morphology No; Platelets Checked Yes; Segmented Neutrophils 73 % (42-75); Total Cells Counted 100
--- NOTE | 2024-02-15 13:47 | W.PN.INTV ---
Today's Communication / Plan
Recommendations
I agree with antibiotics for now
Follow fever curve
Incentive spirometry
Aspiration precautions
Antiemetics
Follow cultures
Agree with fluid bolus
Continue Levophed
Holding diuretics
Nocturnal BiPAP
Low threshold for CT abdomen pelvis if nausea vomiting continue
Assessment
-
Status post coronary artery bypass grafting x5- 02/11/2024 Dr. Matias
Status post ventricular assist device/Impella
Cardiogenic shock-resolved
postoperative mechanical ventilation-extubated
Fever 02/15/2024
Postoperative anemia
Paroxysmal atrial fibrillation with rapid ventricular response-improved
Acute kidney injury
Conditions present prior admission:
Ischemic cardiomyopathy ejection fraction 20-25%.
GERD
Hypertension
Hyper cholesterolemia
Obesity
Prediabetes
Former smoker [id number] history quit in [address] chest with mild changes consistent with emphysema 02/07/2024.
Spirometry without airflow obstruction. Suggestion of restriction.02/08/2024
Plan and recommendations:
Postoperative day 4
-
Bilious vomiting overnight
Chest x-ray: Without acute infiltrates. Bibasilar atelectasis
Abdomen x-ray: NG tube in place. No evidence for ileus. No subdiaphragmatic air.
Continue Zofra as needed
Abdominal exam is benign.
-
Fever since this morning. Leukocytosis improving
I agree with broad-spectrum antibiotic.
Monitor fever curve.
Suspect aspiration pneumonitis as the patient has increased oxygen requirements currently on high flow oxygen at 60% FiO2. Wean as able.
UA not impressive
Blood cultures were sent
Lines have been discontinued
Follow cultures, continue to observe closely.
CT abdomen pelvis may be helpful if nausea vomiting does not improve.
-
Shock: On low-dose Levophed.
Agree with bolus of IV fluids
Holding diuretics
Renal function improved compared to prior
Vega urinary output
No evidence for metabolic acidosis
Impella device removed 02/13/2024.
Continue to hold antihypertensives
-
On supplemental oxygen wean as able.
ABG n 02/15/2024: Adequate oxygenation and ventilation. Respiratory acidosis resolved.
May continue BiPAP at night and as needed.
Avoid sedatives.
-
Incentive spirometry
Increase activity as able
Cardiology correspondence reviewed-on PO amiodarone.
Metoprolol on hold due to hypotension.
Eventual oral anticoagulation.
Anemia noted-no evidence of acute bleeding
Follow H&H serially
NPO due to vomiting.
Head of the bed elevation
Eventual sleep apnea evaluation-patient states that he was diagnosed with a sleep apnea in the past. He Discontinued CPAP.
I recommended reevaluation. He is agreeable. Information will be left in the chart.
Glycemic control per protocol
DVT prophylaxis when safe from the surgical perspective.
Critical care statement: A total of 31 minutes of critical care time was provided for this patient today. This includes management of unstable vital signs, evaluation of the patient at bedside, reviewing the patient's pertinent medical records
including ventilator settings, arterial blood gases, radiographs, microbiology, laboratory evaluations and discussion with primary team, critical care nursing, and respiratory therapy.
Data:
Transthoracic echocardiogram 02/03/2024:
LVEF 20-25%. Severe global hypokinesis. Moderate to severe mitral valve regurgitation. Mitral valve leaflets are tethered. Mildly elevated PASP, 31 mmHg.
Cardiac catheterization, 02/05/2024:
Severe multivessel coronary artery disease with left main involvement. Moderate to severely depressed LVEF with at least moderate mitral regurgitation. Mild to moderately elevated left and right pressures with no evidence of aortic stenosis. CI
2.33.
Subjective Dataa
Subjective Data
Date of Service:
Date of Service: February 15, 2024
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
Subjective:
Overnight with some vomiting.
Denies significant abdominal pain.
No significant nausea this afternoon.
Fevers since this morning.
On low-dose vasopressors
Review of Systems
General: Fever
Cardiopulmonary: Dyspnea (none at rest)
GI: Abdominal Pain (n) and Nausea
Neuro: Headache (n)
Objective Data
Data Reviewed
Vital Signs / I&O / Oxygen:
Vital Signs
Temp Pulse Resp BP Pulse Ox
100.5 F H 87 19 93/43 97
02/15/24 13:00 02/15/24 13:04 02/15/24 13:04 02/15/24 13:04 02/15/24 13:04
Intake and Output
02/14/24 02/15/24 02/16/24
06:59 06:59 06:59
Intake Total 1457.5 / 1511.3 761.8 / 761.8 800.4 / 800.4
Output Total 4625 / 4800 2170 / 3170 2420 / 2420
Balance -3167.5 / -3288.7 -1408.2 / -2408.2 -1619.6 / -1619.6
SaO2 [CPAP/PSV] 95
SaO2 [SIMV] 99
SaO2 97
Nasal Cannula flow liters per 60
minute
Physical Exam
General: Respiratory Distress (n)
HEENT: Normocephalic
Cardiovascular: S1-S2
Respiratory: Clear, Wheeze (n) and Non-Labored Respirations
GI: Distended (obese)
Neurology: Awake, Alert, Oriented and No Motor Deficits
Skin: Warm
Labs/Micro/Reports
Lab Data
02/15/24 11:10
Laboratory Results
02/14/24 02/15/24 02/15/24
20:50 03:10 07:11
PT
INR
APTT
pH 7.49 H 7.46 H 7.46 H
pCO2 39 43 38
pO2 77 L 73 L 109 H
HCO3 29.7 H 30.6 H 27.0
O2 Delivery Level 5l nc
02/15/24
11:10
PT 16.4 H
INR 1.34
APTT 27.8
pH 7.45
pCO2 42
pO2 64 L
HCO3 29.2 H
O2 Delivery Level
[2024-02-15 15:28] LABS: B.E. 3.2 mmol/L; HCO3 27.9 mmol/L (21-28); Ionized Calcium 1.26 mMOL/L (1.15-1.33); O2 Saturation % 98.5 % (94-98); PCO2 42 mmHg (35-48); PO2 85 mmHg (83-108); Potassium 4.3 mMOL/L (3.5-5.1); Sodium 133 mMOL/L (136-145); pH 7.43 (7.35-7.45)
[2024-02-15 15:49] LABS: ALT (SGPT) 25 U/L (0-50); AST (SGOT) 34 U/L (17-59); Albumin 3.6 g/dl (3.5-5.0); Alkaline Phosphatase 107 U/L (38-126); Blood Urea Nitrogen 35 mg/dl (9-20); Calcium 9.6 mg/dl (8.4-10.2); Carbon Dioxide 26 mmol/L (22-30); Chloride 97 mmol/L (98-107); Estimated Creatinine Clearance 75 ml/min; Glucose 129 mg/dl (70-99); Potassium 4.2 mmol/L (3.5-5.1); Sodium 133 mmol/L (135-145); Total Bilirubin 1.7 mg/dl (0.2-1.3); Total Protein 5.9 g/dl (6.3-8.2); eGFR > 60.00
[2024-02-15] MEDS: LIPITOR PO (15:49)
--- NOTE | 2024-02-15 16:00 | PTCARENOTE ---
Pt reassessed. Pt more awake and conversive. Family at bedside. SR with rates in the 80s-90s with PVCs. BP supported with levo & vaso. POX 94% on 60L 70%. Hypoactive BS remain. NGT output much less than earlier in the shift. Pt denies pain,
shortness of breath, and nausea. All lines remain intact. No other acute changes.
[2024-02-15 18:11] LABS: Glucose - Point of Care 143 mg/dl (70-99)
[2024-02-15] MEDS: NSS 500 IV (18:11)
[2024-02-15] MEDS: PITRESSIN 100 IV (18:20)
--- NOTE | 2024-02-15 20:00 | PTCARENOTE ---
Received pt from dayshift; pt resting in bed; Pt is AAOx4, denies pain; NSR on monitor, VSS; heart sounds audible, radial and DP pulses palpable, + 1 generalized edema, temp epicardial AV wires have been cut; Coarse rhonchi throughout, spo2 95% on
highflow NC 60L/60%; + BSx4 quadrants, abdomen soft, round, pt denies tenderness, NG tube in place to low-medium intermittent suction, pt is NPO; pt voiding clear yellow urine via robertson catheter. surgical sites are maintained; right IJ cordis, left
radial A-line, x2 PIV all maintained, leveled, and zeroed; vasopressin gtt and levophed gtt infusing; call higuera within reach; will continue to monitor.
[2024-02-15 20:55] LABS: B.E. 4.4 mmol/L; HCO3 28.4 mmol/L (21-28); O2 Saturation % 96.7 % (94-98); PCO2 39 mmHg (35-48); PO2 73 mmHg (83-108); Potassium 3.9 mMOL/L (3.5-5.1); pH 7.47 (7.35-7.45)
[2024-02-15 23:41] LABS: Magnesium 2.4 mg/dl (1.6-2.3)
[2024-02-15 23:49] LABS: Glucose - Point of Care 106 mg/dl (70-99)
[2024-02-16] VITALS (59 sets, daily range): BP systolic 88–133; BP diastolic 42–88; PULSE 108; O2SAT 97; BMI 30.8
--- NOTE | 2024-02-16 | PTCARENOTE ---
Pt assessment unchanged; Resting comfortably in bed; NSR with MVC's, VSS; Vasopressin and levo gtt infusing. ABG drawn and sent; KCL repleted; HighFlow NC settings changed to 60L/80%. call higuera within reach; will continue to monitor.
[2024-02-16 00:08] LABS: Magnesium 2.4 mg/dl (1.6-2.3)
[2024-02-16] MEDS: MAXIPIME 1000 MG IV ×3 (02:02→17:40)
[2024-02-16] MEDS: STERILE WATER FOR INJECTION 10 ML IV ×3 (02:02→17:40)
[2024-02-16 03:21] LABS: B.E. 4.9 mmol/L; HCO3 29.2 mmol/L (21-28); Ionized Calcium 1.22 mMOL/L (1.15-1.33); O2 Saturation % 97.6 % (94-98); PCO2 41 mmHg (35-48); PO2 69 mmHg (83-108); Potassium 3.8 mMOL/L (3.5-5.1); pH 7.46 (7.35-7.45)
[2024-02-16 03:30] LABS: % Basophils 0.3 % (0-2); % Eosinophils 0.7 % (0-6); % Immature Granulocytes 0.5 % (0-0.5); % Neutrophils 70.5 % (42.2-75.2); Absolute Eosinophils 0.1 10^3/uL (0-0.7); Absolute Immature Granulocytes 0.1 10^3/uL (0-0.05); Absolute Lymphocytes 1.1 10^3/uL (1.2-3.4); Absolute Monocytes 2.7 10^3/uL (0.1-0.6); Absolute Neutrophils 9.4 10^3/uL (1.4-6.5); Hematocrit 24.5 % (39.0-52.0); Hemoglobin 8.1 g/dL (13.0-18.0); Mean Corp Hgb Conc. 33.1 g/dL (33.0-37.0); Mean Corpuscular Volume 87.8 fL (80.0-94.0); Mean Platelet Volume 9.7 fL (7.4-10.4); Nucleated Red Blood Cells % 0 % (-); Platelet Count 236 10^3/uL (130-400); Red Blood Cell Count 2.79 10^6/uL (4.70-6.10); Red Cell Dist. Width 14.9 % (11.5-14.5); White Blood Cell Count 13.3 10^3/uL (4.8-10.8)
[2024-02-16 03:58] LABS: ALT (SGPT) 22 U/L (0-50); AST (SGOT) 29 U/L (17-59); Albumin 3.5 g/dl (3.5-5.0); Alkaline Phosphatase 98 U/L (38-126); Blood Urea Nitrogen 35 mg/dl (9-20); Carbon Dioxide 28 mmol/L (22-30); Chloride 101 mmol/L (98-107); Estimated Creatinine Clearance 88 ml/min; Glucose 104 mg/dl (70-99); Potassium 3.6 mmol/L (3.5-5.1); Sodium 137 mmol/L (135-145); Total Bilirubin 1.7 mg/dl (0.2-1.3); Total Protein 5.7 g/dl (6.3-8.2); eGFR > 60.00
--- NOTE | 2024-02-16 04:00 | PTCARENOTE ---
Pt assessment unchanged; NSR on monitor, VSS; EKG and am labs obtained; pt washed with CHG wipes, new tele leads and gown placed; Levophed tapered down from 2mcg to 1mcg, pt's MAP tolerating well; call higuera within reach. will continue to monitor.
[2024-02-16 04:04] LABS: Procalcitonin 0.41 ng/ml (0.0-0.25)
[2024-02-16] MEDS: KCL 50 IV (04:38)
--- NOTE | 2024-02-16 04:47 | W.PN.CT ---
Today's Communication / Plan
-
-pod #5
-feels better today, A&Ox4, appropriate, more awake
-hypotension improved - Drips: Vasopressin 0.01, Levo is off
-developed ileus- NPO, NG tube placed 02/14. Continue daily iv Protonix
-started on Vanco and Cefepime 02/14 for possible pna (procalcitonin trended up - 0.41 today). Tmax 101.4
-follow blood cx
-follow ABG (7.46/41/69/29.2/97.6)- on high flow NC 60L, 70% fiO2
-Cr stable 1.1
-NGT output 850/2750
-UO 675/1540
-K 3.6 - gave 40 iv KCL
-updated pt's over the phone yesterday
Assessment / Plan
-
Assessment:
S/P CABG x 5 (In situ WALKER to LAD, Ao to RSVG to ramus, Ao to RSVG to OM sequential to LPL, Ao to RSVG to RPDA)/Endoscopic vein harvesting of right lower extremity/Left atrial appendage exclusion, 35 mm clip/Left atrial surgical ablation, modified
maze procedure/ Insertion of a direct aortic ventricular assist device [5.5 Impella] via a 10 mm graft tunneled to the right supraclavicular position sewn directly to the distal ascending aorta, intraoperative management of VAD, by Dr. Matias,
02/11/24, pod#5
-Acute on chronic systolic heart failure
-ICM (EF 20-25% -> 35-40% -> intraop EF 10-15%)
-Cardiogenic shock (CI 1.3-1.5) S/P intraop Impella placement
-Acute respiratory failure secondary to pulmonary edema and volume overload
-Multivessel coronary artery disease involving the LAD and left main
-New onset atrial fibrillation with rapid ventricular response
-Moderate to severe ischemic mitral valve insufficiency, functional [type IIIb]
-Hyperlipidemia
-Hypertension
-Prediabetes (Hgb A1c of 6.0)
-Class I obesity (BMI 30.3)
-GERD
-Transaminitis
-History of tobacco abuse
-Mild to moderate emphysema
-Acute intraop/postop blood loss/Anemia (received 3 {5pk} plts and 1u PRBC)
-Acute postop atelectasis
-Acute postop hypovolemia with subsequent hypervolemia
-Acute postop hypotension requiring Levophed @ 12
-Acute postop sinus tachycardia with PVC's/PAC's
-Acute postop a-fib with rapid ventricular rate
-Acute postop NEERU -improved
-Acute postop metabolic alkalosis
-Acute postop ileus, tx with placement of NG tube, npo
-Acute postop suspected PNA/ elevated procalcitonin- started on Vanco and Cefepime
Discussed patient care with: Nursing and Care Team
Subjective
Procedure
CABG x 5 (In situ WALKER to LAD, Ao to RSVG to ramus, Ao to RSVG to OM sequential to LPL, Ao to RSVG to RPDA)/Endoscopic vein harvesting of right lower extremity/Left atrial appendage exclusion, 35 mm clip/Left atrial surgical ablation, modified maze
procedure/ Insertion of a direct aortic ventricular assist device [5.5 Impella] via a 10 mm graft tunneled to the right supraclavicular position sewn directly to the distal ascending aorta, intraoperative management of VAD, by Dr. Matias, 02/11/24
-
Date of Service: February 16, 2024
Objective Data
-
Lab Results
02/16/24 03:14
02/16/24 03:14
PT 16.4 Sec (11.4-14.6) H 02/15/24 11:10
INR 1.34 02/15/24 11:10
APTT 27.8 Sec (23.4-35.0) 02/15/24 11:10
Vital Signs
Vital Signs
Temp Pulse Resp BP Pulse Ox
99.3 F 94 21 120/67 96
02/16/24 04:00 02/16/24 04:20 02/16/24 04:20 02/16/24 04:00 02/16/24 04:20
CT Intake/Output/Weight
02/15/24 02/15/24 02/16/24
06:59 18:59 06:59
Intake Total 367.7 / 761.8 1063.1 / 1414.4 351.3 / 1414.4
Output Total 2090 / 4170 2765 / 4290 1525 / 4290
Balance -1722.3 / -3408.2 -1701.9 / -2875.6 -1173.7 / -2875.6
SaO2: 96
Physical Exam
-
General: Awake and AOx3
Cardiovascular: Regular rate & rhythm and No Murmurs
Respiratory: Decreased Breath Sounds
Sternum: Stable
Incision: Clean, Dry and Intact
Extremities: Edema +1 (2+ DPs b/l)
Data Reviewed
-
Lab Results: Results Reviewed
Medications: Active Meds Reviewed
Chest X-Ray: Report Reviewed and Image Reviewed
ECG: Report Reviewed and Image Reviewed
[2024-02-16] MEDS: REGLAN 10 MG IV ×3 (05:46→17:40)
[2024-02-16 05:47] LABS: Glucose - Point of Care 112 mg/dl (70-99)
[2024-02-16] MEDS: TYLENOL PO ×3 (06:32→22:26)
--- NOTE | 2024-02-16 07:47 | W.PN.CD ---
Today's Communication / Plan
-
-Wean off vasopressors
-Continue midodrine.
-Once off vasopressin, can restart metoprolol likely tomorrow.
Impression / Plan
-
Impression/Plan: 58M presented to [facility] with SOB, found to be in AF with RVR with new systolic cardiomyopathy (LVEF 20-25%) with moderate/severe MR prompting a LHC revealing MVCAD. The patient was subsequently transferred for surgical
revascularization.
#NSTEMI/Coronary artery disease
-Acute.
-S/P CABG x5 (WALKER to LAD, SVG to RI, sequential SVG to OM to LPL, SVG to RPDA).
-Off norepinephrine low-dose vasopressin likely wean off today.
-Chest tube/pain management per CT surgery.
-High dose, high potency statin.
-Continue amiodarone, aspirin, atorvastatin.
-Post-op ileus. Dulcolax suppositories.
#HFrEF/ICM (EF 20-25%)
-Acute on chronic, CVP normal, bumex gtt stopped
-GDMT on hold post op. With fluctuating blood pressure and requirement of vasopressors, will reassess when to start beta-blockers.
-Trend daily weight, I/O, tele, and BMP.
-Impella surgically removed.
-on midodrine.
#Hypotension
-Acute, multifactorial.
-Low diastolic pressures and prior CO/CI suggest that this is due to poor vascular tone.
-DDx includes sepsis, adrenal crisis, overdiuresis.
-Check cortisol level.
-Cook culture. UA. CT abdomen.
-Empiric antibiotics. Note - vancomycin and cefepime are adequate for HAP (broad coverage, including MRSA and pseudomonas sp.) but consider anaerobic coverage if there is concern for GI process or aspiration.
#Paroxysmal atrial fibrillation with rapid ventricular response
-Back in SR
-Rate/rhythm control with MAZE, amiodarone, metoprolol IV.
-Oral Anticoagulation: S/P LAAL at the time of surgery (#35 Atriclip). Heparin drip now; eventually apixaban 5 mg twice daily post-operatively.
-[id number]: Score at least 3 (Heart failure, HTN, Vascular disease).
#Dyslipidemia
-Chronic, stable.
-Total cholesterol = 136, LDL = 82, HDL = 39, Triglycerides = 75.
-Atorvastatin to 40 mg daily.
-Goal LDL < 55.
#Prediabetes, HgbA1c 6.0%, consider SGLT2
#Obesity, BMI 32, he would benefit from weight loss
#Former smoker, 2 PPD x 30 years, quit in 2021, continued cessation recommended
Critical Care Time = 40 minutes.
Subjective/Interval History:
Weight is down 0.8 kg from yesterday.
Hypotensive yesterday.
Febrile to 38.2.
Vasopressin added to norepinephrine/midodrine.
Current MAP of 55 mmHg (primarily driven by low diastolic pressure).
CXR shows RLL infiltrate (per my read).
AXR shows dilated loops of bowel consistent with ileus (per my read).
DATA:
Transthoracic echocardiogram 02/03/2024:
LVEF 20-25%. Severe global hypokinesis. Moderate to severe mitral valve regurgitation. Mitral valve leaflets are tethered. Mildly elevated PASP, 31 mmHg.
Cardiac catheterization, 02/05/2024:
Severe multivessel coronary artery disease with left main involvement. Moderate to severely depressed LVEF with at least moderate mitral regurgitation. Mild to moderately elevated left and right pressures with no evidence of aortic stenosis. CI
2.33.
TTE, 02/10/2024:
CONCLUSIONS
-Left ventricular ejection fraction is approximately 35-40%. Global
hypokinesis. Wall motion is consistent with conduction abnormality.
-Normal right ventricular size and function.
-Moderately dilated left atrium.
-Mitral valve opens normally. Mild mitral regurgitation.
-Aortic sclerosis without stenosis.
-Trace tricuspid regurgitation. Estimated pulmonary artery pressure of 20-25
mmHg.
-Possible notable plaque seen in the aortic arch (image views 72-77).
Physical Exam
Vital Signs/Labs
Vital Signs
Temp Pulse Resp BP Pulse Ox
99.5 F 94 20 117/67 95
02/16/24 07:00 02/16/24 07:10 02/16/24 07:10 02/16/24 07:00 02/16/24 07:10
02/15/24 02/16/24 02/17/24
06:59 06:59 06:59
Actual Weight 102.8 kg 100 kg
02/16/24 03:14
02/16/24 03:14
PT 16.4 Sec (11.4-14.6) H 02/15/24 11:10
INR 1.34 02/15/24 11:10
APTT 27.8 Sec (23.4-35.0) 02/15/24 11:10
Magnesium 2.4 mg/dl (1.6-2.3) H 02/15/24 23:44
Triglycerides 75 mg/dl (10-149) 02/06/24 10:10
LDL Cholesterol, Calc 82 mg/dl 02/06/24 10:10
VLDL Cholesterol, Calc 15 mg/dl (0-30) 02/06/24 10:10
HDL Cholesterol 39 mg/dl 02/06/24 10:10
02/06/24 02/13/24
10:10 04:18
Saz-J-Hoogaphaitx Pept 1390 1140
Physical Exam
Constitutional: No acute distress and Comfortable
EENT: Anicteric and Moist mucous membranes
Cardiovascular: Rhythm & rate is regular, Pedal edema is absent and JVD present
Respiratory: Respiratory effort normal, Lungs clear to auscul. and Wheeze Absent
GI: Soft, Non tender and Normal bowel sounds
Neuro/Psych: Alert, Oriented and AO x 3
Data Reviewed
-
Date of Service: February 16, 2024
Medical Decision Making: Reviewed Test Results, Independent Historian Assessment, Test Interpretation and Review of Case with other Provider
EKG: Tracing Personally Visualized and interpreted
Echo: Report Reviewed by me
Medical Tests (PFT, Pathology etc): Image Personally Visualized and interpreted
Labs: Labs Reviewed by me
Old Records: Reviewed
[2024-02-16] MEDS: LIDOCAINE 4% PATCH 1 PATCH TOPICAL (08:25)
[2024-02-16] MEDS: NSS (PRESERVATIVE FREE) 10 ML IV (08:25)
[2024-02-16] MEDS: LOW STRENGTH ASPIRIN PO (08:26)
[2024-02-16] MEDS: MUCINEX PO ×2 (08:26→20:28)
[2024-02-16] MEDS: PLAVIX PO (08:26)
[2024-02-16] MEDS: PROTONIX IV 40 MG IV (08:26)
[2024-02-16] MEDS: FLUSH (NSS) 1 FLUSH IV (08:26)
[2024-02-16] MEDS: SENOKOT-S PO ×2 (08:26→20:29)
[2024-02-16] MEDS: PACERONE PO ×3 (08:26→22:26)
--- NOTE | 2024-02-16 08:30 | PTCARENOTE ---
Resumed care of patient. Walking rounds completed with previous RN. Pt denies pain, shortness of breath, and nausea. HANCOCK with equal strength in all extremities. SR-ST on tele with rates 90s-100s. BP stable, weaning vaso gtt. Bilateral radial and DP
pulses palpable. Generalized +1 edema throughout. POX 94% on High Flow NC 60L 70%. Pt rhonchitic and coarse throughout. IS encouraged 750ml achieved. Abdomen distended, very hypoactive BS. NGT to right nare continues to drain green fluid. Vega
catheter draining adequate amounts of leora urine. Sternal incision approximated with skin glue, right chest old impella site approximated with skin glue, INSOLE BEVELER. Old chest tube sites covered, dressing changed d/t drainage. Right groin puncture
approximated INSOLE BEVELER, Right knee incision approximated BRUCE. Right IJ cordis intact. Right and left forearm PIVs intact. Left radial ramya intact with appropriate waveform, line flushed, leveled, zeroed. See MAR for medication administration. See
worklist for complete nursing assessment. Plan of care reviewed and patient in agreement.
[2024-02-16] MEDS: NSS IV (10:21)
[2024-02-16] MEDS: VANCOCIN 300 ML IV (10:26)
[2024-02-16] MEDS: VANCOCIN 300 MG IV (10:26)
--- NOTE | 2024-02-16 11:00 | PTCARENOTE ---
RT at bedside to transition pt from High flow NC to NRB mask to attempt to walk in the hallway. Pt tolerating POX 95%.
[2024-02-16] MEDS: KCL 100 IV ×2 (11:26→17:02)
[2024-02-16] MEDS: BUMEX 2 MG IV ×2 (11:26→17:02)
[2024-02-16] MEDS: DIAMOX 5 MG IV (11:26)
--- NOTE | 2024-02-16 12:00 | PTCARENOTE ---
Pt ambulated with RN and cardiac rehab in the room and in the mccollum. Pt tolerated well. Assisted back to bed. ST with rates in the 100s. BP stable 130s/50s. POX 99% on 15L Midflow NC. Titrated to 10L midflow, POX 95%. Surgical sites stable. Vega
draining adequate amounts of clear leora/yellow urine. Lines remain intact. NGT continues to drain green fluid. No other acute changes.
--- NOTE | 2024-02-16 12:01 | W.PN.INTV ---
Today's Communication / Plan
Recommendations
Wean off vasopressors
Wean off oxygen
Continue antibiotic for 5 days-aspiration pneumonitis/pneumonia.
NG tube in place for ileus
Increase activity as able
Assessment
-
Status post coronary artery bypass grafting x5- 02/11/2024 Dr. Matias
Status post ventricular assist device/Impella
Postoperative ileus-02/15/2024
Aspiration pneumonitis/pneumonia
Cardiogenic shock-resolved
postoperative mechanical ventilation-extubated
Fever 02/15/2024
Postoperative anemia
Paroxysmal atrial fibrillation with rapid ventricular response-improved
Acute kidney injury
Conditions present prior admission:
Ischemic cardiomyopathy ejection fraction 20-25%.
GERD
Hypertension
Hyper cholesterolemia
Obesity
Prediabetes
Former smoker [id number] history quit in [address] chest with mild changes consistent with emphysema 02/07/2024.
Spirometry without airflow obstruction. Suggestion of restriction.02/08/2024
Plan and recommendations:
Postoperative day 5
-
Clinically improved compared to yesterday.
Able to ambulate with physical therapy.
Oxygen has decreased to 3 to 4 L.
Alert and cooperative.
-
NG tube remains in place for ileus
No further vomiting.
N.p.o. for now
Continue Zofra as needed
-
Fever curve significantly improved
Leukocytosis improved.
Okay to continue antibiotics. Consider short course of 5 days.
Suspect aspiration pneumonitis rather than pneumonia. Rapid improvement of fever.
Chest x-ray: Showed right lower lobe mild infiltrate that is improved.
UA without evidence of infection
Blood cultures negative
-
Shock: Improved.
Levophed is off
Low-dose vasopressin. Discontinue today if possible.
Renal function improved compared to prior
Vega urinary output
No evidence for metabolic acidosis
Impella device removed 02/13/2024.
Continue to hold antihypertensives
Intermittent diuresis as able
-
On supplemental oxygen wean as able.
ABG n 02/15/2024: Adequate oxygenation and ventilation. Respiratory acidosis resolved.
May continue BiPAP at night and as needed.
Avoid sedatives.
-
Incentive spirometry
Increase activity as able
Cardiology correspondence reviewed-on PO amiodarone.
Metoprolol on hold due to hypotension.
Eventual oral anticoagulation.
Anemia noted-no evidence of acute bleeding
Follow H&H serially
NPO due to vomiting. NG tube in place
Head of the bed elevation
Eventual sleep apnea evaluation-patient states that he was diagnosed with a sleep apnea in the past. He Discontinued CPAP.
I recommended reevaluation. He is agreeable. Information will be left in the chart.
Glycemic control per protocol
DVT prophylaxis when safe from the surgical perspective.
Seems to be clinically improving.
Complete 5 days of antibiotics
Continue postoperative care
No additional recommendation from the critical care perspective. I will sign off at this point.
Data:
Transthoracic echocardiogram 02/03/2024:
LVEF 20-25%. Severe global hypokinesis. Moderate to severe mitral valve regurgitation. Mitral valve leaflets are tethered. Mildly elevated PASP, 31 mmHg.
Cardiac catheterization, 02/05/2024:
Severe multivessel coronary artery disease with left main involvement. Moderate to severely depressed LVEF with at least moderate mitral regurgitation. Mild to moderately elevated left and right pressures with no evidence of aortic stenosis. CI
2.33.
Subjective Dataa
Subjective Data
Date of Service:
Date of Service: February 16, 2024
Chief Complaint: Health Director Follow Up (Status post coronary artery bypass/cardiogenic shock)
Subjective:
Feels better today.
Fever curve improved
Denies significant phlegm production
NG tube remains in place for ileus, no further vomiting
Review of Systems
General: Fever (n)
Cardiopulmonary: Dyspnea (none at rest) and Dyspnea on Exertion (n)
GI: Abdominal Pain (n)
Objective Data
Data Reviewed
Vital Signs / I&O / Oxygen:
Vital Signs
Temp Pulse Resp BP Pulse Ox
100.0 F 99 20 119/44 96
02/16/24 10:00 02/16/24 10:10 02/16/24 10:10 02/16/24 10:00 02/16/24 10:10
Intake and Output
02/15/24 02/16/24 02/17/24
06:59 06:59 06:59
Intake Total 761.8 / 761.8 1490.4 / 1501.9 41.5 / 41.5
Output Total 3170 / 4170 4590 / 4665 285 / 285
Balance -2408.2 / -3408.2 -3099.6 / -3163.1 -243.5 / -243.5
SaO2 [CPAP/PSV] 95
SaO2 [SIMV] 99
SaO2 96
Nasal Cannula flow liters per 60
minute
Physical Exam
General: Respiratory Distress (n)
HEENT: Normocephalic
Cardiovascular: S1-S2
Respiratory: Clear, Wheeze (n) and Non-Labored Respirations
GI: Distended (obese)
Neurology: Awake, Alert, Oriented and No Motor Deficits
Skin: Warm
Labs/Micro/Reports
Lab Data
02/16/24 03:14
02/16/24 03:14
Laboratory Results
02/15/24 02/15/24 02/16/24
15:21 20:48 03:14
pH 7.43 7.47 H 7.46 H
pCO2 42 39 41
pO2 85 73 L 69 L
HCO3 27.9 28.4 H 29.2 H
O2 Delivery Level
Microbiology
02/15/24 09:14 Blood/Venous Blood Culture - Preliminary
No Growth in 24 hours- Final report to follow
02/15/24 09:01 Blood/Venous Blood Culture - Preliminary
No Growth in 24 hours- Final report to follow
[2024-02-16] MEDS: DULCOLAX 10 MG RECTAL (12:03)
[2024-02-16 12:05] LABS: Glucose - Point of Care 114 mg/dl (70-99)
[2024-02-16] MEDS: LIPITOR PO (12:39)
[2024-02-16] MEDS: LOPRESSOR 5 MG IV ×2 (12:56→17:40)
[2024-02-16 13:07] LABS: B.E. 1.6 mmol/L; HCO3 25.8 mmol/L (21-28); Ionized Calcium 1.22 mMOL/L (1.15-1.33); O2 Saturation % 98.4 % (94-98); PCO2 38 mmHg (35-48); PO2 83 mmHg (83-108); Potassium 3.8 mMOL/L (3.5-5.1); Sodium 139 mMOL/L (136-145); pH 7.44 (7.35-7.45)
--- NOTE | 2024-02-16 15:15 | PTCARENOTE ---
Rosa Elena d/c per orders. Hemostasis achieved. Assisted OOB and to ambulate in the mccollum with 2 assist 125'. Then assisted to the chair. VSS. ST with PVCs with rates in the 100s. BP 116/63. POX 93% on 2L NC. Surgical sites stable. Family at bedside. CT
ROBOTICS ENGINEER updating .
[2024-02-16 17:48] LABS: Glucose - Point of Care 115 mg/dl (70-99)
--- NOTE | 2024-02-16 21:00 | PTCARENOTE ---
Patient received resting in bed watching television. Patient A+A+Ox3. No neurological deficits noted. No c/o headache, dizziness or lightheadedness. NPO. Frequent mouth care. O2 at 6L via NC. SaO2 96%. Sinus Tachycardia. Heart rate 100's.
Blood pressure 119/66 (79). No c/o chest pain, pressure or discomfort. Abdomen round, soft, nontender. Hypoactive bowel sounds. Positive flatus. No BM. No c/o nausea. No vomiting. [place] nasogastric tube via right nare - Intact and patent -
Flushes without difficulty - Low intermittent suction. Vega catheter - Temperature sensing - Yellow to light leora urine - Hourly outputs as documented. Generalized edema. Positive, palpable pulses. Sternal incision - Intact - Open to air.
Right groin intact. Right lower extremity incision intact and open to air. Patient with no c/o back or flank pain. Assessment as documented.
[2024-02-16] MEDS: OASIS 2 SPRAY PO (22:25)
--- NOTE | 2024-02-16 23:00 | PTCARENOTE ---
Patient incontinent of large brown soft to liquidity stool. Patient given bath and linens changed. Skin barrier ointment to buttock and sacrum. Skin intact. No redness or breakdown noted. Chest tube dressing changed. Right I.J. Cordis dressing
changed. Assessment as documented.
[2024-02-17] VITALS (28 sets, daily range): BP systolic 92–126; BP diastolic 58–96; PULSE 95; BMI 29.4
[2024-02-17 00:01] LABS: Glucose - Point of Care 105 mg/dl (70-99)
[2024-02-17] MEDS: LOPRESSOR 5 MG IV ×2 (00:12→05:46)
[2024-02-17] MEDS: REGLAN 10 MG IV ×4 (00:13→18:15)
--- NOTE | 2024-02-17 01:00 | PTCARENOTE ---
Patient incontinent of moderate amount of liquidity brown stool. Patient given bath and linens changed. Vega catheter care. Skin protectant ointment to buttocks and sacrum. No further changes from previous assessment.
[2024-02-17] MEDS: STERILE WATER FOR INJECTION 10 ML IV (02:09)
[2024-02-17] MEDS: MAXIPIME 1000 MG IV (02:09)
--- NOTE | 2024-02-17 04:00 | PTCARENOTE ---
Patient placed on bedpan. Small liquidity brown BM. Patient resting in bed watching television. Assessment/Interventions as documented.
[2024-02-17 05:30] LABS: % Basophils 0.4 % (0-2); % Eosinophils 1.2 % (0-6); % Immature Granulocytes 1.6 % (0-0.5); % Lymphocytes 5.2 % (20.5-51.1); % Neutrophils 73.6 % (42.2-75.2); Absolute Basophils 0.1 10^3/uL (0-0.2); Absolute Eosinophils 0.2 10^3/uL (0-0.7); Absolute Immature Granulocytes 0.3 10^3/uL (0-0.05); Absolute Lymphocytes 0.9 10^3/uL (1.2-3.4); Absolute Neutrophils 12.4 10^3/uL (1.4-6.5); Hematocrit 29.8 % (39.0-52.0); Hemoglobin 9.6 g/dL (13.0-18.0); Mean Corp Hgb Conc. 32.2 g/dL (33.0-37.0); Mean Corpuscular Hgb 28.7 pg (27.0-31.0); Mean Platelet Volume 9.5 fL (7.4-10.4); Nucleated Red Blood Cells % 0 % (-); Platelet Count 345 10^3/uL (130-400); Red Blood Cell Count 3.35 10^6/uL (4.70-6.10); Red Cell Dist. Width 14.9 % (11.5-14.5); White Blood Cell Count 16.9 10^3/uL (4.8-10.8)
--- NOTE | 2024-02-17 05:43 | W.PN.CT ---
Today's Communication / Plan
-
-pod #6
-Off pressors 615
-BB trial tolerated, currently getting metoprolol 5 mg IV q6hr
-developed ileus- NPO, NG tube placed 02/14. NGT had 125/375 out in 12/24 hrs, Continue daily iv Protonix
-started on Vanco and Cefepime 02/14 for possible pna (procalcitonin trended up - 0.41). Tmax 100.5 in 24 hrs
-follow blood cx
-Cr stable 1.1
-UO 1200/3135
Assessment / Plan
-
Assessment:
S/P CABG x 5 (In situ WALKER to LAD, Ao to RSVG to ramus, Ao to RSVG to OM sequential to LPL, Ao to RSVG to RPDA)/Endoscopic vein harvesting of right lower extremity/Left atrial appendage exclusion, 35 mm clip/Left atrial surgical ablation, modified
maze procedure/ Insertion of a direct aortic ventricular assist device [5.5 Impella] via a 10 mm graft tunneled to the right supraclavicular position sewn directly to the distal ascending aorta, intraoperative management of VAD, by Dr. Matias,
02/11/24, pod#6
-Acute on chronic systolic heart failure
-ICM (EF 20-25% -> 35-40% -> intraop EF 10-15%)
-Cardiogenic shock (CI 1.3-1.5) S/P intraop Impella placement
-Acute respiratory failure secondary to pulmonary edema and volume overload
-Multivessel coronary artery disease involving the LAD and left main
-New onset atrial fibrillation with rapid ventricular response
-Moderate to severe ischemic mitral valve insufficiency, functional [type IIIb]
-Hyperlipidemia
-Hypertension
-Prediabetes (Hgb A1c of 6.0)
-Class I obesity (BMI 30.3)
-GERD
-Transaminitis
-History of tobacco abuse
-Mild to moderate emphysema
-Acute intraop/postop blood loss/Anemia (received 3 {5pk} plts and 1u PRBC)
-Acute postop atelectasis
-Acute postop hypovolemia with subsequent hypervolemia
-Acute postop hypotension requiring Levophed @ 12
-Acute postop sinus tachycardia with PVC's/PAC's
-Acute postop a-fib with rapid ventricular rate
-Acute postop NEERU -improved
-Acute postop metabolic alkalosis
-Acute postop ileus, tx with placement of NG tube, npo
-Acute postop suspected PNA/ elevated procalcitonin- started on Vanco and Cefepime
Subjective
Procedure
CABG x 5 (In situ WALKER to LAD, Ao to RSVG to ramus, Ao to RSVG to OM sequential to LPL, Ao to RSVG to RPDA)/Endoscopic vein harvesting of right lower extremity/Left atrial appendage exclusion, 35 mm clip/Left atrial surgical ablation, modified maze
procedure/ Insertion of a direct aortic ventricular assist device [5.5 Impella] via a 10 mm graft tunneled to the right supraclavicular position sewn directly to the distal ascending aorta, intraoperative management of VAD, by Dr. Matias, 02/11/24
-
Date of Service: February 17, 2024
Objective Data
-
PT 16.4 Sec (11.4-14.6) H 02/15/24 11:10
INR 1.34 02/15/24 11:10
APTT 27.8 Sec (23.4-35.0) 02/15/24 11:10
Vital Signs
Vital Signs
Temp Pulse Resp BP Pulse Ox
99.8 F 105 16 114/69 95
02/17/24 04:00 02/17/24 04:00 02/17/24 04:00 02/17/24 04:00 02/17/24 04:00
CT Intake/Output/Weight
0602/16/24 02/17/24
06:59 18:59 06:59
Intake Total 427.3 / 1501.9 571.5 / 761.5 190 / 761.5
Output Total 1825 / 4665 2185 / 3510 1325 / 3510
Balance -1397.7 / -3163.1 -1613.5 / -2748.5 -1135 / -2748.5
SaO2: 95
Physical Exam
-
General: Awake, Oriented and AOx3
Cardiovascular: Regular rate & rhythm and No Rub
Respiratory: Equal and Decreased Breath Sounds
Sternum: Stable
Incision: Clean, Dry and Intact
Extremities: No Edema and No Erythema
Data Reviewed
-
Lab Results: Results Reviewed
Medications: Active Meds Reviewed
Chest X-Ray: Report Reviewed
ECG: Report Reviewed
[2024-02-17] MEDS: NSS 500 IV (05:45)
[2024-02-17 05:52] LABS: Blood Urea Nitrogen 35 mg/dl (9-20); Calcium 9.7 mg/dl (8.4-10.2); Carbon Dioxide 27 mmol/L (22-30); Chloride 105 mmol/L (98-107); Estimated Creatinine Clearance 80 ml/min; Glucose 107 mg/dl (70-99); Magnesium 2.5 mg/dl (1.6-2.3); Phosphorus 3.2 mg/dl (2.5-4.5); Potassium 3.9 mmol/L (3.5-5.1); Sodium 144 mmol/L (135-145); eGFR > 60.00
--- NOTE | 2024-02-17 06:15 | PTCARENOTE ---
Patient A+A+Ox3. No neurological deficits noted. AM lab work collected and sent. Portable CXR completed. X-Ray ABD completed. Patient OOB to chair. Standing scale weight 95.6 kg. No c/o pain or discomfort. Assessment/Interventions as
documented.
[2024-02-17] MEDS: TYLENOL PO (06:23)
[2024-02-17] MEDS: MUCINEX PO (07:12)
--- NOTE | 2024-02-17 07:30 | W.PN.CD ---
Today's Communication / Plan
-
- IV metprolol started
- still high output from NG tube. Continue NPO with suction
Impression / Plan
-
Impression/Plan: 58M presented to [facility] with SOB, found to be in AF with RVR with new systolic cardiomyopathy (LVEF 20-25%) with moderate/severe MR prompting a LHC revealing MVCAD. The patient was subsequently transferred for surgical
revascularization.
#NSTEMI/Coronary artery disease
-Acute.
-S/P CABG x5 (WALKER to LAD, SVG to RI, sequential SVG to OM to LPL, SVG to RPDA).
-Off norepinephrine low-dose vasopressin likely wean off today.
-Chest tube/pain management per CT surgery.
-High dose, high potency statin.
-Continue amiodarone, aspirin, atorvastatin. IV metoprolol 5mg q6h started.
-Post-op ileus. Dulcolax suppositories.
#HFrEF/ICM (EF 20-25%)
-Acute on chronic, CVP normal, bumex gtt stopped
-GDMT on hold post op. With fluctuating blood pressure and requirement of vasopressors, will reassess when to start beta-blockers.
-Trend daily weight, I/O, tele, and BMP.
-Impella surgically removed.
-on midodrine.
#Hypotension
-Acute, multifactorial.
-Low diastolic pressures and prior CO/CI suggest that this is due to poor vascular tone.
-DDx includes sepsis, adrenal crisis, overdiuresis.
-Check cortisol level.
-Cook culture. UA. CT abdomen.
-Empiric antibiotics. Note - vancomycin and cefepime are adequate for HAP (broad coverage, including MRSA and pseudomonas sp.) but consider anaerobic coverage if there is concern for GI process or aspiration.
#Paroxysmal atrial fibrillation with rapid ventricular response
-Back in SR
-Rate/rhythm control with MAZE, amiodarone, metoprolol IV.
-Oral Anticoagulation: S/P LAAL at the time of surgery (#35 Atriclip). Heparin drip now; eventually apixaban 5 mg twice daily post-operatively.
-[id number]: Score at least 3 (Heart failure, HTN, Vascular disease).
#Dyslipidemia
-Chronic, stable.
-Total cholesterol = 136, LDL = 82, HDL = 39, Triglycerides = 75.
-Atorvastatin to 40 mg daily.
-Goal LDL < 55.
#Prediabetes, HgbA1c 6.0%, consider SGLT2
#Obesity, BMI 32, he would benefit from weight loss
#Former smoker, 2 PPD x 30 years, quit in 2021, continued cessation recommended
Critical Care Time = 31 minutes.
Subjective/Interval History:
Weight is down 0.8 kg from yesterday.
Hypotensive yesterday.
Febrile to 38.2.
Vasopressin added to norepinephrine/midodrine.
Current MAP of 55 mmHg (primarily driven by low diastolic pressure).
CXR shows RLL infiltrate (per my read).
AXR shows dilated loops of bowel consistent with ileus (per my read).
DATA:
Transthoracic echocardiogram 02/03/2024:
LVEF 20-25%. Severe global hypokinesis. Moderate to severe mitral valve regurgitation. Mitral valve leaflets are tethered. Mildly elevated PASP, 31 mmHg.
Cardiac catheterization, 02/05/2024:
Severe multivessel coronary artery disease with left main involvement. Moderate to severely depressed LVEF with at least moderate mitral regurgitation. Mild to moderately elevated left and right pressures with no evidence of aortic stenosis. CI
2.33.
TTE, 02/10/2024:
CONCLUSIONS
-Left ventricular ejection fraction is approximately 35-40%. Global
hypokinesis. Wall motion is consistent with conduction abnormality.
-Normal right ventricular size and function.
-Moderately dilated left atrium.
-Mitral valve opens normally. Mild mitral regurgitation.
-Aortic sclerosis without stenosis.
-Trace tricuspid regurgitation. Estimated pulmonary artery pressure of 20-25
mmHg.
-Possible notable plaque seen in the aortic arch (image views 72-77).
Physical Exam
Vital Signs/Labs
Vital Signs
Temp Pulse Resp BP Pulse Ox
97.6 F 101 16 118/65 94
02/17/24 05:45 02/17/24 05:46 02/17/24 05:45 02/17/24 05:46 02/17/24 05:45
02/16/24 02/17/24 02/18/24
06:59 06:59 06:59
Actual Weight 100 kg 95.6 kg
02/17/24 05:05
02/17/24 05:05
PT 16.4 Sec (11.4-14.6) H 02/15/24 11:10
INR 1.34 02/15/24 11:10
APTT 27.8 Sec (23.4-35.0) 02/15/24 11:10
Magnesium 2.5 mg/dl (1.6-2.3) H 02/17/24 05:05
Triglycerides 75 mg/dl (10-149) 02/06/24 10:10
LDL Cholesterol, Calc 82 mg/dl 02/06/24 10:10
VLDL Cholesterol, Calc 15 mg/dl (0-30) 02/06/24 10:10
HDL Cholesterol 39 mg/dl 02/06/24 10:10
02/06/24 02/13/24
10:10 04:18
Sri-B-Dnqsgsiyytz Pept 1390 1140
Physical Exam
Constitutional: No acute distress and Comfortable
EENT: Moist mucous membranes
Cardiovascular: Rhythm & rate is regular, JVD pressure is normal and Systolic murmur absent
Respiratory: Respiratory effort normal, Lungs clear to auscul. and Crackles Present
GI: Soft, Non tender and Normal bowel sounds
Neuro/Psych: Alert and Oriented
Data Reviewed
-
Date of Service: February 17, 2024
Medical Decision Making: Reviewed Test Results, Independent Historian Assessment, Test Interpretation and Review of Case with other Provider
EKG: Tracing Personally Visualized and interpreted
Echo: Report Reviewed by me
Labs: Labs Reviewed by me
Old Records: Reviewed
[2024-02-17] MEDS: NSS (PRESERVATIVE FREE) 10 ML IV (07:53)
[2024-02-17] MEDS: LOW STRENGTH ASPIRIN PO (07:53)
[2024-02-17] MEDS: DULCOLAX 10 MG RECTAL (07:53)
[2024-02-17] MEDS: LIDOCAINE 4% PATCH 1 PATCH TOPICAL (07:53)
[2024-02-17] MEDS: PLAVIX PO (07:54)
[2024-02-17] MEDS: PACERONE PO (07:54)
[2024-02-17] MEDS: SENOKOT-S PO (07:54)
[2024-02-17] MEDS: PROTONIX IV 40 MG IV (07:54)
[2024-02-17] MEDS: OASIS 1 SPRAY PO (07:54)
--- NOTE | 2024-02-17 08:00 | PTCARENOTE ---
Resumed care of patient. Walking rounds completed with previous RN. Pt assessed while he was sitting in the chair. Pt alert and oriented x4. Denies pain, shortness of breath, and nausea. HANCOCK with equal strength in all extremities. No facial droop,
tongue deviation. PERRLA 3mm brisk. ST on tele with rates in the 100s. BP stable 110/70. Bilateral radial and DP pulses palpable. No edema noted. POX 90% on RA. Lungs diminished in the bases, no adventitious sounds. Occasional productive cough with
[place] sputum. Abdomen soft, round, distended. Hypoactive BS, less hypoactive than yesterday. NGT to right nare draining straw fluid. Vega catheter draining adequate amounts of leora urine. Sternal incision approximated with skin glue, CRIMINOLOGY TEACHER. Right
chest wall old impella site approximated with skin glue, BRUCE. Old chest tube sites covered and dressing CDI. Right groin puncture site approximated and BRUCE. Right knee incision approximated with skin glue, CRIMINOLOGY TEACHER. Right IJ cordis intact. Right forearm
PIV and Left forearm PIV intact. 1 assist to ambulate in the mccollum 150'. Pt tolerated. See MAR for medication administration. See worklist for complete nursing assessment. plan of care reviewed and patient reluctantly in agreement.
--- NOTE | 2024-02-17 10:00 | PTCARENOTE ---
Pt assisted to the toilet. +formed brown BM. Assisted back to bed. NGT removed and robertson removed per orders. Pt tolerated. Assisted pt to walk 150' in the [place], tolerated well. Pt shaving using electric razor.
[2024-02-17] MEDS: VANCOCIN 300 ML IV (10:01)
[2024-02-17] MEDS: VANCOCIN 300 MG IV (10:01)
[2024-02-17] MEDS: LOW STRENGTH ASPIRIN 81 MG PO (10:05)
[2024-02-17] MEDS: CORDARONE 103 MG IV (10:14)
[2024-02-17] MEDS: TOPROL XL 12.5 MG PO (11:02)
--- NOTE | 2024-02-17 12:00 | SUR.PHASEI ---
Pt assisted to walk in the [place] 150'. Pt reassessed. Pt remains oriented x4, but seems delirious at times. ST with rates in the 100s. BP stable 110/84. POX 96% on 2L NC. Surgical sites stable. Pt continues to do IS/acapella. Cordis and PIVx2 remain
intact. DTV post catheter removal.
[2024-02-17 12:09] LABS: Glucose - Point of Care 118 mg/dl (70-99)
[2024-02-17] MEDS: TYLENOL 1000 MG PO ×2 (14:51→22:44)
[2024-02-17] MEDS: TOPROL XL 25 MG PO (14:52)
--- NOTE | 2024-02-17 16:00 | PTCARENOTE ---
Pt reassessed. VSS. ST with PAC and PVCs with rates in the 100s. BP stable 112/68. POX 92% on RA. Surgical sites stable. Cordis and PIV x2 intact. Pt ambulating in the halls well. Family at bedside. Tolerating ice chips, sips, and PO meds.
[2024-02-17] MEDS: OASIS PO ×2 (16:23→22:44)
[2024-02-17] MEDS: PACERONE 200 MG PO ×2 (16:23→22:45)
[2024-02-17 16:25] LABS: Glucose - Point of Care 125 mg/dl (70-99)
[2024-02-17] MEDS: LIPITOR 40 MG PO (18:15)
[2024-02-17] MEDS: LOPRESSOR 12.5 MG PO (20:59)
[2024-02-17] MEDS: MUCINEX 1200 MG PO (20:59)
[2024-02-17] MEDS: SENOKOT-S 1 TABLET PO (20:59)
--- NOTE | 2024-02-17 21:00 | PTCARENOTE ---
Patient received resting in bed watching a movie. Patient A+A+Ox3. No neurological deficits noted. No c/o pain or discomfort. O2 at 2L via NC. SaO2 94%. Sinus Rhythm. Heart rate 90's. No c/o chest pain, pressure of discomfort. Hypoactive
bowel sounds. No BM. Positive flatus. No c/o nausea. No vomiting. Voiding without difficulty. 150 ml leora urine. Patient with no c/o back or flank pain. Right I.J. Cordis - Intact and patent - Saline flush 10 ml/hr. Patient tolerating ice
chips and water. Assessment as documented.
[2024-02-17 22:50] LABS: Glucose - Point of Care 104 mg/dl (70-99)
[2024-02-18] VITALS (11 sets, daily range): BP systolic 86–125; BP diastolic 58–68; PULSE 101; O2SAT 92–93; BMI 29.7
[2024-02-18] MEDS: REGLAN 10 MG IV ×3 (00:07→23:13)
--- NOTE | 2024-02-18 00:30 | PTCARENOTE ---
Patient sleeping with CPAP 10. Patient awoke and requested CPAP off. Placed on 2L via NC. Back to sleep. No further changes from previous assessment.
[2024-02-18 03:44] LABS: Hematocrit 27.5 % (39.0-52.0); Hemoglobin 9.3 g/dL (13.0-18.0); Mean Corp Hgb Conc. 33.8 g/dL (33.0-37.0); Mean Corpuscular Hgb 28.8 pg (27.0-31.0); Mean Corpuscular Volume 85.1 fL (80.0-94.0); Mean Platelet Volume 9.1 fL (7.4-10.4); Platelet Count 432 10^3/uL (130-400); Red Blood Cell Count 3.23 10^6/uL (4.70-6.10); Red Cell Dist. Width 14.8 % (11.5-14.5); White Blood Cell Count 23.4 10^3/uL (4.8-10.8)
--- NOTE | 2024-02-18 04:15 | PTCARENOTE ---
Patient A+A+Ox3. No neurological deficits noted. Patient voided 400 ml leora urine. AM lab work collected and sent. EKG completed. Portable CXR and X-Ray ABD to be completed. Patient given CHG bath and linens changed. Chest tube dressing
changed. Standing scale weight 96.7 kg. Patient back to sleep. Assessment/Interventions as documented.
[2024-02-18 04:23] LABS: Blood Urea Nitrogen 33 mg/dl (9-20); Calcium 9.4 mg/dl (8.4-10.2); Carbon Dioxide 26 mmol/L (22-30); Chloride 103 mmol/L (98-107); Estimated Creatinine Clearance 85 ml/min; Glucose 100 mg/dl (70-99); Potassium 3.8 mmol/L (3.5-5.1); Sodium 139 mmol/L (135-145); eGFR > 60.00
--- NOTE | 2024-02-18 04:35 | W.PN.CT ---
Today's Communication / Plan
-
-pod #7
-Off pressors 15
-post op ileus improving, NGT out 02/16. Advanced to clears yesterday evening, tolerating. Continued on metoclopramide, Dulcolax, and pantoprazole
-BB trial tolerated, switch from IV to PO and increased to Toprol 50 mg
-Now off Vanco and Cefepime for possible pna. Tmax 100.2 in 24 hrs. WBC 16.9->23.4 today
-follow blood cx, NTD
-Continue ASA, Plavix, atorvastatin, amio 200 mg TID
-Continue gabapentin, lidocaine patch, Skelaxin
Assessment / Plan
-
Assessment:
S/P CABG x 5 (In situ WALKER to LAD, Ao to RSVG to ramus, Ao to RSVG to OM sequential to LPL, Ao to RSVG to RPDA)/Endoscopic vein harvesting of right lower extremity/Left atrial appendage exclusion, 35 mm clip/Left atrial surgical ablation, modified
maze procedure/ Insertion of a direct aortic ventricular assist device [5.5 Impella] via a 10 mm graft tunneled to the right supraclavicular position sewn directly to the distal ascending aorta, intraoperative management of VAD, by Dr. Matias,
02/11/24, pod#7
-Acute on chronic systolic heart failure
-ICM (EF 20-25% -> 35-40% -> intraop EF 10-15%)
-Cardiogenic shock (CI 1.3-1.5) S/P intraop Impella placement
-Acute respiratory failure secondary to pulmonary edema and volume overload
-Multivessel coronary artery disease involving the LAD and left main
-New onset atrial fibrillation with rapid ventricular response
-Moderate to severe ischemic mitral valve insufficiency, functional [type IIIb]
-Hyperlipidemia
-Hypertension
-Prediabetes (Hgb A1c of 6.0)
-Class I obesity (BMI 30.3)
-GERD
-Transaminitis
-History of tobacco abuse
-Mild to moderate emphysema
-Acute intraop/postop blood loss/Anemia (received 3 {5pk} plts and 1u PRBC)
-Acute postop atelectasis
-Acute postop hypovolemia with subsequent hypervolemia
-Acute postop hypotension requiring Levophed @ 12
-Acute postop sinus tachycardia with PVC's/PAC's
-Acute postop a-fib with rapid ventricular rate
-Acute postop NEERU -improved
-Acute postop metabolic alkalosis
-Acute postop ileus, tx with placement of NG tube, npo
-Acute postop suspected PNA/ elevated procalcitonin- started on Vanco and Cefepime
Subjective
Procedure
CABG x 5 (In situ WALKER to LAD, Ao to RSVG to ramus, Ao to RSVG to OM sequential to LPL, Ao to RSVG to RPDA)/Endoscopic vein harvesting of right lower extremity/Left atrial appendage exclusion, 35 mm clip/Left atrial surgical ablation, modified maze
procedure/ Insertion of a direct aortic ventricular assist device [5.5 Impella] via a 10 mm graft tunneled to the right supraclavicular position sewn directly to the distal ascending aorta, intraoperative management of VAD, by Dr. Matias, 02/11/24
-
Date of Service: February 18, 2024
Objective Data
-
Lab Results
02/18/24 03:38
02/18/24 03:38
PT 16.4 Sec (11.4-14.6) H 02/15/24 11:10
INR 1.34 02/15/24 11:10
APTT 27.8 Sec (23.4-35.0) 02/15/24 11:10
Vital Signs
Vital Signs
Temp Pulse Resp BP Pulse Ox
98.0 F 86 16 114/61 93
02/17/24 22:40 02/18/24 00:07 02/17/24 22:40 02/18/24 00:07 02/17/24 22:[address] Intake/Output/Weight
02/17/24 02/17/24 02/18/24
06:59 18:59 06:59
Intake Total 210 / 791.5 740 / 1040 300 / 1040
Output Total 1675 / 3905 430 / 580 150 / 580
Balance -1465 / -3113.5 310 / 460 150 / 460
SaO2: 93
Physical Exam
-
General: Awake and Oriented
Cardiovascular: Regular rate & rhythm, No Murmurs and No Rub
Respiratory: Clear and Equal
Sternum: Stable
Incision: Clean, Dry and Intact
Extremities: No Edema and No Erythema
Data Reviewed
-
Lab Results: Results Reviewed
Medications: Active Meds Reviewed
Chest X-Ray: Report Reviewed
ECG: Report Reviewed
[2024-02-18] MEDS: TYLENOL 1000 MG PO ×3 (06:29→20:31)
[2024-02-18 07:26] LABS: % Basophils 0.4 % (0-2); % Eosinophils 4.5 % (0-6); % Immature Granulocytes 4.4 % (0-0.5); % Lymphocytes 8.7 % (20.5-51.1); % Monocytes 15.7 % (1.7-9.3); % Neutrophils 66.3 % (42.2-75.2); Absolute Basophils 0.1 10^3/uL (0-0.2); Absolute Eosinophils 1.1 10^3/uL (0-0.7); Absolute Immature Granulocytes 1.1 10^3/uL (0-0.05); Absolute Lymphocytes 2.1 10^3/uL (1.2-3.4); Absolute Monocytes 3.8 10^3/uL (0.1-0.6); Absolute Neutrophils 15.8 10^3/uL (1.4-6.5); Nucleated Red Blood Cells % 0 % (-)
--- NOTE | 2024-02-18 07:30 | PTCARENOTE ---
Received pt from steel grinder RN; pt AAOx3 and resting comfortably in chair; NSR on monitor and VSS; RIJ Cordis and PIV x1 patent; Lungs diminished; IS to 1000; positive bowel sounds; pt voiding clear yellow urine; Generalized trace edema noted;
palpable pluses throughout; all surgical sites C/D/I; see nursing documentation for further details.
[2024-02-18] MEDS: MILK OF MAGNESIA 30 ML PO (08:25)
[2024-02-18] MEDS: LOW STRENGTH ASPIRIN 81 MG PO (08:25)
[2024-02-18] MEDS: PACERONE 200 MG PO ×3 (08:25→20:31)
[2024-02-18] MEDS: LIDOCAINE 4% PATCH 1 PATCH TOPICAL (08:25)
[2024-02-18] MEDS: SENOKOT-S 1 TABLET PO ×2 (08:25→20:31)
[2024-02-18] MEDS: MUCINEX 1200 MG PO ×2 (08:25→20:31)
[2024-02-18] MEDS: TOPROL XL 50 MG PO (08:25)
[2024-02-18] MEDS: PLAVIX 75 MG PO (08:25)
[2024-02-18] MEDS: NSS (PRESERVATIVE FREE) 10 ML IV (08:26)
[2024-02-18] MEDS: OASIS 1 SPRAY PO (08:26)
[2024-02-18] MEDS: PROTONIX IV 40 MG IV (08:26)
[2024-02-18 08:36] LABS: Glucose - Point of Care 112 mg/dl (70-99)
[2024-02-18] MEDS: DULCOLAX RECTAL (11:31)
--- NOTE | 2024-02-18 12:00 | PTCARENOTE ---
Assessment unchanged; NSR on monitor and VSS; pt ambulating in hallways with RN.
[2024-02-18 12:08] LABS: Glucose - Point of Care 127 mg/dl (70-99)
[2024-02-18] MEDS: REGLAN IV ×2 (13:00→17:49)
--- NOTE | 2024-02-18 13:44 | W.PN.CD ---
Addendum entered and electronically signed by Yariel Villeda MD 02/18/24 14:15:
I saw and examined the patient.
The FILLING AND STAPLING MACHINE OPERATOR's note was reviewed and I agree with the note.
feels well. ambulating. In sinus . Continue current therapy.
Original Note:
Today's Communication / Plan
-
-Encourage IS and ambulation
-Continue ASA, statin, BB
-OAC when safe per surgery
Impression / Plan
-
Impression/Plan: 58M presented to [facility] with SOB, found to be in AF with RVR with new systolic cardiomyopathy (LVEF 20-25%) with moderate/severe MR prompting a [facility] revealing MVCAD. The patient was subsequently transferred for surgical
revascularization.
#NSTEMI/Coronary artery disease
-S/P CABG x5 (WALKER to LAD, SVG to RI, sequential SVG to OM to LPL, SVG to RPDA) 02/11/24
-feels well, ambulating, using IS
-continue ASA, statin, and BB
-Post-op ileus, improved
#HFrEF/ICM (EF 20-25%)
-GDMT as tolerated. Toprol initiated.
#Paroxysmal atrial fibrillation with rapid ventricular response
-Back in SR
-Rate/rhythm control with MAZE, amiodarone
-Oral Anticoagulation: S/P LAAL at the time of surgery (#35 Atriclip). Plan is OAC when safe per surgery team.
-[id number]: Score at least 3 (Heart failure, HTN, Vascular disease).
#Dyslipidemia
-Chronic, stable.
-Total cholesterol = 136, LDL = 82, HDL = 39, Triglycerides = 75.
-Atorvastatin to 40 mg daily.
-Goal LDL < 55.
#Prediabetes, HgbA1c 6.0%, consider SGLT2
#Obesity, BMI 32, he would benefit from weight loss
#Former smoker, 2 PPD x 30 years, quit in 2021, continued cessation recommended
Subjective/Interval History:
Patient feeling much improved. Ambulating without difficulty.
DATA:
Transthoracic echocardiogram 02/03/2024:
LVEF 20-25%. Severe global hypokinesis. Moderate to severe mitral valve regurgitation. Mitral valve leaflets are tethered. Mildly elevated PASP, 31 mmHg.
Cardiac catheterization, 02/05/2024:
Severe multivessel coronary artery disease with left main involvement. Moderate to severely depressed LVEF with at least moderate mitral regurgitation. Mild to moderately elevated left and right pressures with no evidence of aortic stenosis. CI
2.33.
TTE, 02/10/2024:
CONCLUSIONS
-Left ventricular ejection fraction is approximately 35-40%. Global
hypokinesis. Wall motion is consistent with conduction abnormality.
-Normal right ventricular size and function.
-Moderately dilated left atrium.
-Mitral valve opens normally. Mild mitral regurgitation.
-Aortic sclerosis without stenosis.
-Trace tricuspid regurgitation. Estimated pulmonary artery pressure of 20-25
mmHg.
-Possible notable plaque seen in the aortic arch (image views 72-77).
Physical Exam
Vital Signs/Labs
Vital Signs
Temp Pulse Resp BP Pulse Ox
98.6 F 90 20 97/68 94
02/18/24 11:59 02/18/24 11:57 02/18/24 11:59 02/18/24 11:57 02/18/24 11:59
02/17/24 02/18/24 02/19/24
06:59 06:59 06:59
Actual Weight 95.6 kg 96.7 kg
02/18/24 03:38
02/18/24 03:38
PT 16.4 Sec (11.4-14.6) H 02/15/24 11:10
INR 1.34 02/15/24 11:10
APTT 27.8 Sec (23.4-35.0) 02/15/24 11:10
Magnesium 2.5 mg/dl (1.6-2.3) H 02/17/24 05:05
Triglycerides 75 mg/dl (10-149) 02/06/24 10:10
LDL Cholesterol, Calc 82 mg/dl 02/06/24 10:10
VLDL Cholesterol, Calc 15 mg/dl (0-30) 02/06/24 10:10
HDL Cholesterol 39 mg/dl 02/06/24 10:10
02/06/24 02/13/24
10:10 04:18
[id number] Pept 1390 1140
Physical Exam
Constitutional: No acute distress
EENT: Anicteric
Cardiovascular: Rhythm & rate is regular
Respiratory: Respiratory effort normal and Lungs clear to auscul.
Neuro/Psych: AO x 3
Other: Skin (midsternal incision is intact)
Data Reviewed
-
Date of Service: February 18, 2024
EKG: Other (tele SR)
Labs: Labs Reviewed by me
--- NOTE | 2024-02-18 16:19 | PTCARENOTE ---
Pt ambulating in hallways; assessment unchanged; NSR on monitor and VSS.
--- NOTE | 2024-02-18 16:41 | CM ---
pt not medicably ready for dc at this time, plan remains home, when medically stable, with f/u visit from ct transitional care nurses after dc.
[2024-02-18 17:35] LABS: Glucose - Point of Care 112 mg/dl (70-99)
[2024-02-18] MEDS: LIPITOR 40 MG PO (17:38)
[2024-02-18] MEDS: OASIS PO ×2 (17:38→20:32)
[2024-02-18] MEDS: NSS IV (17:51)
--- NOTE | 2024-02-18 20:00 | PTCARENOTE ---
assumed care of pt from previous RN. pt resting in bed at time of assessment. pt A&Ox4. ambulating independently. SR on tele-monitor, rates in the 90s. POX 97% on RA. abd s/n, round. hypoactive BS. voiding in toilet. all surgical sites stable. PIV
x2 intact. see worklist for complete nursing assessment, interventions, VS, and I&Os.
[2024-02-18] MEDS: ELIQUIS 5 MG PO (20:31)
[2024-02-18 20:40] LABS: Glucose - Point of Care 135 mg/dl (70-99)
[2024-02-18] MEDS: KCL 20 MEQ PO (23:13)
--- NOTE | 2024-02-19 | PTCARENOTE ---
assessment remains unchanged. VSS. no c/o pain.
[2024-02-19 03:33] VITALS: BP 101/64
--- NOTE | 2024-02-19 03:46 | W.PN.CT ---
Today's Communication / Plan
-
-No major issues overnight. Hemodynamically and neurologically intact
-Repeat echo on 02/13 showed improved EF to 55-60%
-Acute postop ileus has resolved, + flatus, tolerating regular diet
-Started Eliquis last night for PAF/MAZE
-Cont. current meds (ASA, Eliquis, Lipitor, Amiodarone, Toprol XL; will add GEORGE-I when BP permits)
-Replete K, 3.7
-Encourage use of IS
-OOB into chair/Ambulate
-Encourage smoking cessation
-Home likely today
Assessment / Plan
-
Assessment:
S/P CABG x 5 (In situ WALKER to LAD, Ao to RSVG to ramus, Ao to RSVG to OM sequential to LPL, Ao to RSVG to RPDA)/Endoscopic vein harvesting of right lower extremity/Left atrial appendage exclusion, 35 mm clip/Left atrial surgical ablation, modified
maze procedure/ Insertion of a direct aortic ventricular assist device [5.5 Impella] via a 10 mm graft tunneled to the right supraclavicular position sewn directly to the distal ascending aorta, intraoperative management of VAD, by Dr. Matias,
02/11/24, pod#8
-Acute on chronic systolic heart failure
-ICM (EF 20-25% -> 35-40% -> intraop EF 10-15%)
-Cardiogenic shock (CI 1.3-1.5) S/P intraop Impella placement
-Acute respiratory failure secondary to pulmonary edema and volume overload
-Multivessel coronary artery disease involving the LAD and left main
-New onset atrial fibrillation with rapid ventricular response
-Moderate to severe ischemic mitral valve insufficiency, functional [type IIIb]
-Hyperlipidemia
-Hypertension
-Prediabetes (Hgb A1c of 6.0)
-Class I obesity (BMI 30.3)
-GERD
-Transaminitis
-History of tobacco abuse
-Mild to moderate emphysema
-Acute intraop/postop blood loss/Anemia (received 3 {5pk} plts and 1u PRBC)
-Acute postop atelectasis
-Acute postop hypovolemia with subsequent hypervolemia
-Acute postop hypotension requiring Levophed @ 12
-Acute postop sinus tachycardia with PVC's/PAC's
-Acute postop a-fib with rapid ventricular rate
-Acute postop NEERU -improved
-Acute postop metabolic alkalosis
-Acute postop ileus, tx with placement of NG tube, npo
-Acute postop suspected PNA/ elevated procalcitonin- started on Vanco and Cefepime
-Acute postop ileus has resolved
Discussed patient care with: Cardiology, Nursing, Respiratory Therapy, Pharmacy and Care Team
Subjective
Procedure
CABG x 5 (In situ WALKER to LAD, Ao to RSVG to ramus, Ao to RSVG to OM sequential to LPL, Ao to RSVG to RPDA)/Endoscopic vein harvesting of right lower extremity/Left atrial appendage exclusion, 35 mm clip/Left atrial surgical ablation, modified maze
procedure/ Insertion of a direct aortic ventricular assist device [5.5 Impella] via a 10 mm graft tunneled to the right supraclavicular position sewn directly to the distal ascending aorta, intraoperative management of VAD, by Dr. Matias, 02/11/24
-
Date of Service: February 19, 2024
Pt offers no complaints, feels well. Ambulating without difficulty. Feels ready to go home
Objective Data
-
PT 16.4 Sec (11.4-14.6) H 02/15/24 11:10
INR 1.34 02/15/24 11:10
APTT 27.8 Sec (23.4-35.0) 02/15/24 11:10
Vital Signs
Vital Signs
Temp Pulse Resp BP Pulse Ox
98.0 F 92 16 86/65 94
02/19/24 00:00 02/19/24 00:00 02/19/24 00:00 02/18/24 23:17 02/19/24 00:00
CT Intake/Output/Weight
02/18/24 02/18/24 02/19/24
06:59 18:59 06:59
Intake Total 840 / 1580 80 / 80
Output Total 550 / 980 650 / 650
Balance 290 / 600 -570 / -570
SaO2: 94 (RA)
Physical Exam
-
General: Awake, Oriented and AOx3
Cardiovascular: Regular rate & rhythm, No Murmurs and No Gallop
Respiratory: Decreased Breath Sounds (otherwise clear)
Sternum: Stable
Incision: Clean, Dry, Intact and Dressing Intact
Extremities: No Edema
Data Reviewed
-
Lab Results: Results Reviewed
Medications: Active Meds Reviewed
Chest X-Ray: Report Reviewed and Image Reviewed
ECG: Report Reviewed and Image Reviewed
[2024-02-19 03:52] LABS: Hematocrit 27.2 % (39.0-52.0); Hemoglobin 9.5 g/dL (13.0-18.0); Mean Corp Hgb Conc. 34.9 g/dL (33.0-37.0); Mean Corpuscular Hgb 28.9 pg (27.0-31.0); Mean Corpuscular Volume 82.7 fL (80.0-94.0); Mean Platelet Volume 9.2 fL (7.4-10.4); Platelet Count 505 10^3/uL (130-400); Red Blood Cell Count 3.29 10^6/uL (4.70-6.10); Red Cell Dist. Width 14.6 % (11.5-14.5); White Blood Cell Count 24.5 10^3/uL (4.8-10.8)
[2024-02-19 04:15] LABS: Blood Urea Nitrogen 25 mg/dl (9-20); Calcium 9.1 mg/dl (8.4-10.2); Carbon Dioxide 23 mmol/L (22-30); Chloride 105 mmol/L (98-107); Estimated Creatinine Clearance 106 ml/min; Glucose 103 mg/dl (70-99); Potassium 3.7 mmol/L (3.5-5.1); Sodium 136 mmol/L (135-145); eGFR > 60.00
[2024-02-19] MEDS: REGLAN 10 MG IV (05:40)
[2024-02-19] MEDS: KCL 40 MEQ PO (05:40)
[2024-02-19] MEDS: TYLENOL 1000 MG PO (05:40)
[2024-02-19 06:00] VITALS: BMI 30.2
[2024-02-19] MEDS: DULCOLAX RECTAL (07:42)
[2024-02-19] MEDS: OASIS PO (07:42)
[2024-02-19 07:52] VITALS: BP 105/65
[2024-02-19 07:55] LABS: Glucose - Point of Care 113 mg/dl (70-99)
--- NOTE | 2024-02-19 08:00 | PTCARENOTE ---
pt received from previous RN, oriented, OOB in chair. SR on the monitor, HR 90s. SBP 100s. trace LE edema. palpable pulses. pt on RA, 93-95% POX. lungs diminished in bases. IS encouraged. pt abdomen round, s/n, denies n/v. +BS, +flatus per pt.
voids. ambulates independently. sternal incision SALESFORCE ADMINISTRATOR, approximated. chest tube site c/d/i. RCW incision SALESFORCE ADMINISTRATOR. R groin puncture SALESFORCE ADMINISTRATOR. R knee incision BRUCE. PIV x2. see worklist for VS, I&O, and assessment.
[2024-02-19] MEDS: LIDOCAINE 4% PATCH TOPICAL (08:08)
[2024-02-19] MEDS: PROTONIX 40 MG PO (09:04)
[2024-02-19] MEDS: ELIQUIS 5 MG PO (09:04)
[2024-02-19] MEDS: PACERONE 200 MG PO (09:04)
[2024-02-19] MEDS: SENOKOT-S 1 TABLET PO (09:04)
[2024-02-19] MEDS: MUCINEX 1200 MG PO (09:04)
[2024-02-19] MEDS: TOPROL XL 50 MG PO (09:04)
[2024-02-19] MEDS: LOW STRENGTH ASPIRIN 81 MG PO (09:06)
--- NOTE | 2024-02-19 10:46 | W.PN.CD ---
Today's Communication / Plan
-
sglt2 i to start
eval for leukocytosis per CT surgery
hopefully home later today
-follow up with cardiology---[facility] section
Impression / Plan
-
Impression/Plan: 58M presented to [facility] with SOB, found to be in AF with RVR with new systolic cardiomyopathy (LVEF 20-25%) with moderate/severe MR prompting a C revealing MVCAD. The patient was subsequently transferred for surgical
revascularization.
#NSTEMI/Coronary artery disease
-S/P CABG x5 (WALKER to LAD, SVG to RI, sequential SVG to OM to LPL, SVG to RPDA) 02/11/24
-feels well, ambulating, using IS
-continue ASA, statin, and BB
-Post-op ileus, improved
#HFrEF/ICM (EF 20-25%)
-GDMT as tolerated. Toprol initiated.
-BP limits mra/acei/arb/arni--consider as op
-would start sglt2i
#Paroxysmal atrial fibrillation with rapid ventricular response
-Back in SR
-Rate/rhythm control with MAZE, amiodarone
-Oral Anticoagulation: S/P LAAL at the time of surgery (#35 Atriclip). Eliquis started.
-[id number]: Score at least 3 (Heart failure, HTN, Vascular disease).
#Dyslipidemia
-Chronic, stable.
-Total cholesterol = 136, LDL = 82, HDL = 39, Triglycerides = 75.
-Atorvastatin to 40 mg daily.
-Goal LDL < 55.
#leukocytosis: w/u per CT surgery
#Prediabetes, HgbA1c 6.0%, TLC and sglt2i would help.
#Obesity, BMI 32, he would benefit from weight loss
#Former smoker, 2 PPD x 30 years, quit in 2021, continued cessation recommended
Subjective/Interval History:
Patient feeling much improved. Ambulating without difficulty.Would like to go home.
DATA:
Transthoracic echocardiogram 02/03/2024:
LVEF 20-25%. Severe global hypokinesis. Moderate to severe mitral valve regurgitation. Mitral valve leaflets are tethered. Mildly elevated PASP, 31 mmHg.
Cardiac catheterization, 02/05/2024:
Severe multivessel coronary artery disease with left main involvement. Moderate to severely depressed LVEF with at least moderate mitral regurgitation. Mild to moderately elevated left and right pressures with no evidence of aortic stenosis. CI
2.33.
TTE, 02/10/2024:
CONCLUSIONS
-Left ventricular ejection fraction is approximately 35-40%. Global
hypokinesis. Wall motion is consistent with conduction abnormality.
-Normal right ventricular size and function.
-Moderately dilated left atrium.
-Mitral valve opens normally. Mild mitral regurgitation.
-Aortic sclerosis without stenosis.
-Trace tricuspid regurgitation. Estimated pulmonary artery pressure of 20-25
mmHg.
-Possible notable plaque seen in the aortic arch (image views 72-77).
Physical Exam
Vital Signs/Labs
Vital Signs
Temp Pulse Resp BP Pulse Ox
97.4 F 86 18 105/65 93
02/19/24 07:56 02/19/24 09:00 02/19/24 07:56 02/19/24 07:52 02/19/24 09:14
02/18/24 02/19/24 02/20/24
06:59 06:59 06:59
Actual Weight 96.7 kg 98.1 kg
02/19/24 03:45
02/19/24 03:45
PT 16.4 Sec (11.4-14.6) H 02/15/24 11:10
INR 1.34 02/15/24 11:10
APTT 27.8 Sec (23.4-35.0) 02/15/24 11:10
Magnesium 2.0 mg/dl (1.6-2.3) 02/19/24 03:45
Triglycerides 75 mg/dl (10-149) 02/06/24 10:10
LDL Cholesterol, Calc 82 mg/dl 02/06/24 10:10
VLDL Cholesterol, Calc 15 mg/dl (0-30) 02/06/24 10:10
HDL Cholesterol 39 mg/dl 02/06/24 10:10
02/06/24 02/13/24
10:10 04:18
[id number]-Bkzoocrgflv Pept 1390 1140
Physical Exam
Constitutional: No acute distress
Cardiovascular: Rhythm & rate is regular, Pedal edema is absent, JVD pressure is normal, Systolic murmur absent and Diastolic murmur absent
Respiratory: Respiratory effort normal, Lungs clear to auscul., Wheeze Absent and Crackles Absent
Neuro/Psych: AO x 3
Data Reviewed
-
Date of Service: February 19, 2024
Medical Decision Making: Review of Case with other Provider (MANUFACTURER'S REPRESENTATIVE for CT Jovita: would start sglt2i given cmy despite improvement---still not normal )
[2024-02-19] MEDS: FARXIGA 10 MG PO (11:11)
--- NOTE | 2024-02-19 11:17 | W.DCSUMMARY ---
Discharge Summary
Discharge Data
Date of Admission: 02/06/24
Date of Discharge: 02/19/24
-
Pending Results: No
Hospital Course
Primary care physician: none
Outpatient intensivist: Сергей Wood ([facility])
Inpatient consultants: [facility] cardiology
Procedures:
1. Coronary artery bypass grafting, MAZE, left atrial appendage exclusion, and centrally implanted Impella ventricular assist device (02/11/24)
2. Echocardiographic wean of Impella 5.5 and Explant of Impella 5.5 w/ control of 10mm Hemashield graft (02/13/24)
Primary Diagnosis:
1. Multivessel coronary artery disease
Secondary Diagnoses:
1. Acute systolic left ventricular dysfunction
2. [place] atrial fibrillation
3. Acute respiratory failure secondary to pulmonary edema and volume overload
4. Hyperlipidemia
5. Hypertension
6. Prediabetes (Hgb A1c of 6.0)
7. Class I obesity (BMI 30.3)
8. Mild to moderate emphysema (former tobacco use)
9. Acute surgical blood loss anemia
10. Acute postop NEERU
11. Acute postop ileus
12. Acute postop pneumonitis
HPI: 58-year-old male was admitted to [facility] with progressive shortness of breath and palpitations on 02/03/2024. Patient was found to be in new onset atrial fibrillation with rapid ventricular response. Echocardiogram
reported an EF of 20 to 25% with moderate to severe mitral regurgitation. Patient underwent cardiac catheterization at [facility] and found to have multivessel disease. Patient was transferred to [facility] on 02/06/2024 for surgical
evaluation.
Hospital course: Patient was admitted to [facility] and aggressively diuresed with Lasix infusion and started on intravenous heparin. By 02/06, weight reduced from 105 to 101 kg. On 02/07, patient developed atrial fibrillation and was given
beta-ish and dig load. Repeat TTE on 6/9 reported EF of 35-40% with mild mitral regurgitation. On 02/11/2024, patient went to surgery with Dr. Terry Matias for coronary artery bypass grafting x 5 (WALKER to LAD, Ao to RSVG to ramus, Ao to RSVG to
OM sequential to LPL, Ao to RSVG to RPDA). Insertion of a direct aortic ventricular assist device [5.5 Impella] via a 10 mm graft tunneled to the right supraclavicular position sewn directly to the distal ascending aorta, Left atrial surgical
ablation, modified maze procedure, and Left atrial appendage exclusion with #35 mm clip. Patient required 2 units of platelets intraoperatively and returned to CVICU on dobutamine, Levophed, insulin, Precedex. Patient was extubated at 1 AM on
postoperative day #1. Dobutamine was changed to milrinone 0.125 mg. P level was weaned from 4-3. Atrial fibrillation was treated with Lopressor and IV amiodarone. IV heparin was initiated at 500 units an hour with goal PTT of 40 to 60 seconds.
Patient continues to progress well with weaning of P level to 2 with stable hemodynamics. Impella was removed in the operating room and 2 units of packed red blood cells administered. Chest tubes were removed on postoperative day #2. Heparin was
discontinued and Plavix started. Amiodarone was converted to oral therapy. Patient was weaned to BiPAP and admitted flow the nasal cannula. Repeat TTE on 02/13 reported EF of 40%. Levophed was weaned and patient started on midodrine Diamox and
Bumex were given wires and chest tubes were discontinued. On 02/14, patient felt vomited multiple times throughout the night and abdominal x-ray identified ileus with hypoxic respiratory failure. BiPAP was initiated and nasogastric tube was
inserted for retuen of 2 L bilious fluid. NPO status was initiated. Levophed and vasopressin were added and patient started on empiric antibiotics for presumed aspiration pneumonia. Septic workup was negative. Antibiotics were discontinued after
2 days for diagnosis of pneumonitis. On 02/15, pressors were weaned off and high flow nasal cannula converted to nasal cannula 2 L. Patient continued to progress and NG tube was discontinued on 02/16. Patient had formed bowel movement and was
advanced to clear liquid diet. Amiodarone was continued for increased PACs. On 02/18, Plavix was discontinued and Eliquis started for history of atrial fibrillation preop. White count was 24.5, up from 23.4 on 02/17, and patient without fever or
chills. On 02/18, IV contrast CT of chest/abdomen/pelvis was performed and mild pneumonitis identified. Case discussed with surgeon and patient started on Augmentin for 5-day course. In discussion with cardiology, Farxiga was initiated for history
of acute systolic LV dysfunction. Patient ambulated with cardiac rehab and was deemed stable for discharge to home. Transitional nurses will obtain CBC with differential on , 02/21/2024.
Home medication changes:
Atorvastatin dose increased to 40mg (high intensity) s/p CABG
Prilosec changed to Protonix as GI prophylaxis for Eliquis
Eliquis anticoagulation for atrial fibrillation
Farxiga for heart failure
Augmentin (5-day course) for mild pneumonitis
Discharge Plan
-
Patient Disposition: Home (Routine Discharge)
Discharge Diagnosis/Procedures: CABG/STEVIE clip/MAZE/Impella
Condition: Good
Diet: Diabetic, Carb Controlled
Activity: No strenuous activity
Driving Restrictions: Not until seen by your Dr
Bathing Restrictions: OK to Shower
Blood Work: CBCWD
Other Services: Cardiac Rehab
Specialty Instructions: Weigh Daily- Call MD for wt gain/loss 3 lbs overnight/5 lbs in 1 week
Referrals:
CT Transitional Care Nurse [Outside]
(
The Cardiothoracic Transitional Care Nurse will call you to set up a visit in 1-2 days.)
Сергей Wood MD [Active] - 04/07/24 12:40 pm (intensivist)
Curt Yee MD [Active] - (Sleep apnea evaluation, may see CALL OUT CLERK)
Terry Matias MD [Active] - 03/12/24 8:45 am
UNKNOWN,NO INTERVIEW [Unknown Provider] -
Prescriptions:
New
acetaminophen 325 mg Tablet
650 mg PO Q4HPRN PRN (Reason: mild pain,headache,temp >101F ) Qty: 0 0RF
aspirin 81 mg Tablet,Chewable
81 mg PO DAILY Qty: 0 0RF
Eliquis 5 mg Tablet
5 mg PO BID Qty: 60 1RF
atorvastatin 40 mg Tablet
40 mg PO QPM Qty: 30 1RF
pantoprazole 40 mg Tablet,Delayed Release (Dr/Ec)
40 mg PO DAILY Qty: 30 1RF
gabapentin 100 mg Capsule
100 mg PO TID Qty: 30 0RF
guaifenesin 600 mg Tablet Extended Release 12hr
1,200 mg PO Q12 Qty: 60 0RF
metoprolol succinate 50 mg Tablet Extended Release 24 Hr
50 mg PO DAILY Qty: 30 1RF
dapagliflozin propanediol 10 mg Tablet
10 mg PO DAILY Qty: 30 1RF
amoxicillin-pot clavulanate [Augmentin] 500-125 mg tablet
1 tab PO BID Qty: 10 0RF
amiodarone 200 mg tablet
200 mg PO BID Qty: 60 1RF
Rx Instructions:
200mg BID x 14 days, then reduce to 200mg daily
Discontinued
atorvastatin [Lipitor] 20 mg Tablet
20 mg PO DAILY
omeprazole magnesium [Prilosec OTC] 20 mg Tablet,Delayed Release (Dr/Ec)
20 mg PO DAILY
Discharge Orders:
Discharge Patient (As Directed); Ordered 02/19/24
Ordered By: Diamond Hussein
Care Plan Goals
Care Plan Goals:
Problem: Readiness for enhanced knowledge related to diagnosis and treatment plan
Goal: Understand your diagnosis and treatment plan needs, including medications if applicable.
Instructions: Know your diagnosis, underlying causes and treatment plan options, including medications if applicable. Consult with your health care team to learn about your diagnosis and treatment plan, including medications if applicable.
Discharge Date and Time
Print Language: FAROESE
[2024-02-19 11:30] VITALS: BP 109/62
--- NOTE | 2024-02-19 13:06 | PTCARENOTE ---
pt VSS, pt completed stairs w/ CR. pt discharged home w/ , discharge instructions reviewed w/ patient and . home meds reviewed w/ patient and . questions answered. patient education printed for patient and . pt refused pneumonia
vaccine. IVx2 and tele dc'd. pt showered, dressed self. pt left via wheelchair by volunteer escort w/ all belongings.
[2024-02-19 13:26] VITALS: BP 109/62; BP 136/98; PULSE 90; O2SAT 94; O2SAT 97
== END 2024-02-19 13:41 | disposition home or self-care (01) | DRG 1 ==
LOC: CVICU 09:30
PROVIDERS: Anesthesiology; Clinical Nurse Specialist Acute Care; Internal Medicine Cardiovascular Disease; Nurse Practitioner; Physician Assistant Medical; Thoracic Surgery (Cardiothoracic Vascular Surgery); ADMITTING PHYSICIAN Thoracic Surgery (Cardiothoracic Vascular Surgery); CONSULT PHYSICIAN Internal Medicine; CONSULT PHYSICIAN Internal Medicine Critical Care Medicine; FAMILY PHYSICIAN Family Medicine
PROC: 5A1221Z Performance of Cardiac Output, Continuous (ICD-10-PCS; 2024-02-11)
PROC: X2HX0F9 Insertion of Conduit to Short-term External Heart Assist System into Thoracic Aorta, Ascending, Open Approach, New Technology Group 9 (ICD-10-PCS; 2024-02-11)
PROC: 02100Z9 Bypass Coronary Artery, One Artery from Left Internal Mammary, Open Approach (ICD-10-PCS; 2024-02-11)
PROC: 02HA0RZ Insertion of Short-term External Heart Assist System into Heart, Open Approach (ICD-10-PCS; 2024-02-11)
PROC: 30233N1 Transfusion of Nonautologous Red Blood Cells into Peripheral Vein, Percutaneous Approach (ICD-10-PCS; 2024-02-11)
PROC: 02580ZZ Destruction of Conduction Mechanism, Open Approach (ICD-10-PCS; 2024-02-11)
PROC: B24BZZ4 Ultrasonography of Heart with Aorta, Transesophageal (ICD-10-PCS; 2024-02-11)
PROC: 02L70CK Occlusion of Left Atrial Appendage with Extraluminal Device, Open Approach (ICD-10-PCS; 2024-02-11)
PROC: 06BP4ZZ Excision of Right Saphenous Vein, Percutaneous Endoscopic Approach (ICD-10-PCS; 2024-02-11)
PROC: 021309W Bypass Coronary Artery, Four or More Arteries from Aorta with Autologous Venous Tissue, Open Approach (ICD-10-PCS; 2024-02-11)
PROC: 5A0221D Assistance with Cardiac Output using Impeller Pump, Continuous (ICD-10-PCS; 2024-02-11)
PROC: 30233R1 Transfusion of Nonautologous Platelets into Peripheral Vein, Percutaneous Approach (ICD-10-PCS; 2024-02-12)
PROC: 02PW3RZ Removal of Short-term External Heart Assist System from Thoracic Aorta, Descending, Percutaneous Approach (ICD-10-PCS; 2024-02-13)
PROC: 5A09357 Assistance with Respiratory Ventilation, Less than 24 Consecutive Hours, Continuous Positive Airway Pressure (ICD-10-PCS; 2024-02-13)
DX: I21.4 Non-ST elevation (NSTEMI) myocardial infarction (principal); I50.23 Acute on chronic systolic (congestive) heart failure; R57.0 Cardiogenic shock; J96.00 Acute respiratory failure, unspecified whether with hypoxia or hypercapnia; J69.0 Pneumonitis due to inhalation of food and vomit; I48.19 Other persistent atrial fibrillation; D62 Acute posthemorrhagic anemia; K91.89 Other postprocedural complications and disorders of digestive system; K56.7 Ileus, unspecified; J98.11 Atelectasis; E87.4 Mixed disorder of acid-base balance; J95.89 Other postprocedural complications and disorders of respiratory system, not elsewhere classified; I25.10 Atherosclerotic heart disease of native coronary artery without angina pectoris; I34.0 Nonrheumatic mitral (valve) insufficiency; I25.5 Ischemic cardiomyopathy; J43.9 Emphysema, unspecified; I11.0 Hypertensive heart disease with heart failure; E66.9 Obesity, unspecified; N99.0 Postprocedural (acute) (chronic) kidney failure; Y83.2 Surgical operation with anastomosis, bypass or graft as the cause of abnormal reaction of the patient, or of later complication, without mention of misadventure at the time of the procedure; I95.81 Postprocedural hypotension; R00.0 Tachycardia, unspecified; K21.9 Gastro-esophageal reflux disease without esophagitis; K59.00 Constipation, unspecified; R73.03 Prediabetes; E78.00 Pure hypercholesterolemia, unspecified; Z68.30 Body mass index [BMI] 30.0-30.9, adult; Z79.899 Other long term (current) drug therapy; Z82.49 Family history of ischemic heart disease and other diseases of the circulatory system; Z87.891 Personal history of nicotine dependence
CPT/HCPCS: 93308; 33259; 36600; 70355; 71045; 71046; 71260; 71275; 74018; 74174; 74177; 80048; 80053; 80061; 81003; 81015; 82140; 82248; 82330; 82533; 82565; 82805; 82810; 82947; 82962; 83010; 83036; 83605; 83615; 83735; 83880; 84100; 84132; 84145; 84302; 84520; 85014; 85018; 85025; 85027; 85049; 85384; 85610; 85730; 86803; 86850; 86900; 86901; 86920; 87040; 87070; 93005; 93306; 93312; 93320; 93325; 93880; 93970; 94002; 94003; 94010; 94640; 94660; C1713; C1768; J1160; J2260; P9016; P9045; P9047; P9073; Q9967

== ENCOUNTER → 2024-08-18 11:03 | Outpatient (REF) | payer BC, SELFPAY | LOC: HWRCS 11:03 | PROVIDERS: ATTENDING PHYSICIAN Thoracic Surgery (Cardiothoracic Vascular Surgery) | DX: Z95.1 Presence of aortocoronary bypass graft (principal) | CPT/HCPCS: 93306 ==